=== PATIENT | female | born 1985 | race African-American/Black ===

== ENCOUNTER 2018-02-07 16:17 | Emergency (ER) | payer OTHER ==
[2018-02-07 18:03] LABS: ADD UMIC YES; UR ASCORBIC ACID NEGATIVE (NEGATIVE); UR BILIRUBIN (Dip) NEGATIVE (NEGATIVE); UR BLOOD (Dip) NEGATIVE (NEGATIVE); UR CLARITY SLIGHTLY CLOUDY (CLEAR); UR COLOR YELLOW (YELLOW); UR GLUCOSE (Dip) NEGATIVE (NEGATIVE); UR KETONES (Dip) NEGATIVE (NEGATIVE); UR LEUKOCYTE ESTERASE (Dip) TRACE Leu/ul (NEGATIVE); UR NITRITE (Dip) NEGATIVE (NEGATIVE); UR RBC 1 /HPF (0-5); UR SPECIFIC GRAVITY (Dip) 1.014 (1.003-1.030); UR SQUAMOUS EPITHELIAL CELL MODERATE /HPF (FEW); UR TOTAL PROTEIN (Dip) NEGATIVE (NEGATIVE); UR UROBILINOGEN (Dip) 2+ mg/dL (NEGATIVE); UR WBC 4 /HPF (0-5)
[2018-02-07] MEDS: DIPHENHYDRAMINE 50 MG INJ IV (18:37)
[2018-02-07] MEDS: HYDROmorphONE 0.5 MG/0.5 ML SYG IV ×2 (18:38→19:16)
[2018-02-07] MEDS: SOD CHLORIDE 0.9% 1,000 ML IV (18:39)
[2018-02-07] MEDS: ONDANSETRON 4 MG INJ IV (18:39)
[2018-02-07 18:53] LABS: ADD MAN DIFF? NO
[2018-02-07 19:01] LABS: WHITE BLOOD COUNT 10.6 10^3/ul (4.8-10.8)
[2018-02-07 19:01] LABS: ABNORMAL IP MESSAGE 1; BASOPHIL # 0.1 10^3/ul (0.0-0.1); BASOPHILS % 1.3 % (0.0-2.0); EOSINOPHILS # 0.7 10^3/ul (0.0-0.5); EOSINOPHILS % 6.7 % (0.0-7.0); HEMATOCRIT 22.7 % (37.0-47.0); HEMOGLOBIN 7.8 g/dl (12.0-16.0); LYMPHOCYTES # 3.3 10^3/ul (0.8-2.9); LYMPHOCYTES % 31.3 % (15.0-51.0); MEAN CORPUSCULAR HEMOGLOBIN 30.4 pg (29.0-33.0); MEAN CORPUSCULAR HGB CONC 34.4 g/dl (32.0-37.0); MEAN CORPUSCULAR VOLUME 88.3 fl (82.0-101.0); MEAN PLATELET VOLUME 10.5 fl (7.4-10.4); MONOCYTE # 0.9 10^3/ul (0.3-0.9); MONOCYTES % 8.7 % (0.0-11.0); NEUTROPHIL # 5.5 10^3/ul (1.6-7.5); NEUTROPHILS % 51.3 % (39.0-77.0); NUCLEATED RED BLOOD CELLS # 0.3 10^3/ul (0.0-0.0); NUCLEATED RED BLOOD CELLS% 2.7 /100WBC (0.0-0.0); PLATELET COUNT 540 10^3/UL (140-415); RED BLOOD COUNT 2.57 10^6/ul (4.20-5.40); RED CELL DISTRIBUTION WIDTH 16.6 % (11.5-14.5)
[2018-02-07 19:32] LABS: ALANINE AMINOTRANSFERASE 25 IU/L (13-69); ALBUMIN 4.3 g/dl (3.3-4.9); ALBUMIN/GLOBULIN RATIO 1.19; ALKALINE PHOSPHATASE 96 IU/L (42-121); ANION GAP 15 (8-16); ASPARTATE AMINO TRANSFERASE 41 IU/L (15-46); BILIRUBIN,INDIRECT 1.8 mg/dl (0-1.1); BILIRUBIN,TOTAL 1.8 mg/dl (0.2-1.3); BLOOD UREA NITROGEN 13 mg/dl (7-20); CALCIUM 9.1 mg/dl (8.4-10.2); CARBON DIOXIDE 25 mmol/L (21-31); CHLORIDE 111 mmol/L (97-110); CREATINE KINASE 83 IU/L (23-200); CREATININE 0.49 mg/dl (0.44-1.00); GLUCOSE 109 mg/dl (70-220); LACTATE DEHYDROGENASE 1099 IU/L (313-618); POTASSIUM 3.5 mmol/L (3.5-5.1); SODIUM 147 mmol/L (135-144); TOTAL PROTEIN 7.9 g/dl (6.1-8.1)
[2018-02-07 19:44] LABS: CK INDEX 0.7; CK-MB 0.57 ng/ml (0.0-2.4)
[2018-02-07 19:58] LABS: TROPONIN-I < 0.012 ng/ml (0.00-0.12)
[2018-02-07 20:21] LABS: POSITIVE DIFF @See below
[2018-02-07 20:39] LABS: RETICULOCYTE COUNT # 0.258 X10^6 (0.020-0.110); RETICULOCYTE COUNT % 11.1 % (0.5-1.5); RETICULOCYTE RBC 2.33
[2018-02-07] MEDS: HYDROmorphONE 1 MG/5 ML IV SYRINGE IV (20:42)
[2018-02-07] MEDS ORDERED: HEPARIN (100 UNITS/ML) 5 ML SYG IV (21:30)
[2018-02-07] MEDS: HEPARIN (100 UNITS/ML) 5 ML SYG IV (21:38)
[2018-02-09 15:23] LABS: HAPTOGLOBIN <15 mg/dL (43-212)
== END 2018-02-07 21:39 | disposition home or self-care (01) ==
LOC: FTE 16:17
DX: D57.1 Sickle-cell disease without crisis (principal); M79.605 Pain in left leg; M79.604 Pain in right leg; M54.5 Low back pain
CPT/HCPCS: 36415; 80053; 81001; 82550; 82553; 83010; 83615; 84484; 84703; 85025; 85045; 96374; 96375; 96376; 99284-25

== ENCOUNTER 2018-06-08 10:04 | Emergency (ER) | payer OTHER ==
[2018-06-08] MEDS: DIPHENHYDRAMINE 50 MG INJ IV (11:20)
[2018-06-08] MEDS: SOD CHLORIDE 0.9% 1,000 ML IV (11:20)
[2018-06-08] MEDS: HYDROmorphONE 2 MG/ML SYG IV (11:24)
[2018-06-08 11:27] LABS: ADD MAN DIFF? NO
[2018-06-08 11:39] LABS: ABNORMAL IP MESSAGE 1; BASOPHIL # 0.1 10^3/ul (0.0-0.1); BASOPHILS % 0.7 % (0.0-2.0); EOSINOPHILS % 0.4 % (0.0-7.0); HEMATOCRIT 25.7 % (37.0-47.0); LYMPHOCYTES # 1.4 10^3/ul (0.8-2.9); LYMPHOCYTES % 13.5 % (15.0-51.0); MEAN CORPUSCULAR VOLUME 88.6 fl (82.0-101.0); MEAN PLATELET VOLUME 9.5 fl (7.4-10.4); MONOCYTES % 10.1 % (0.0-11.0); NEUTROPHIL # 7.5 10^3/ul (1.6-7.5); NEUTROPHILS % 74.9 % (39.0-77.0); NUCLEATED RED BLOOD CELLS # 0.6 10^3/ul (0.0-0.0); NUCLEATED RED BLOOD CELLS% 5.9 /100WBC (0.0-0.0); PLATELET COUNT 548 10^3/UL (140-415); RED CELL DISTRIBUTION WIDTH 18.2 % (11.5-14.5); RETICULOCYTE COUNT # 0.318 X10^6 (0.020-0.110)
[2018-06-08 11:40] LABS: POSITIVE DIFF @See below
[2018-06-08 11:46] LABS: ANION GAP 21 (8-16); BLOOD UREA NITROGEN 14 mg/dl (7-20); CALCIUM 9.8 mg/dl (8.4-10.2); CARBON DIOXIDE 22 mmol/L (21-31); CHLORIDE 107 mmol/L (97-110); CREATININE 0.54 mg/dl (0.44-1.00); GLUCOSE 102 mg/dl (70-220); POTASSIUM 3.7 mmol/L (3.5-5.1); SODIUM 146 mmol/L (135-144)
[2018-06-08] MEDS: HYDROmorphONE 1 MG/ML SYG IV (12:08)
[2018-06-08] MEDS: HEPARIN (100 UNITS/ML) 5 ML SYG CATHETER (13:06)
[2018-06-08 13:26] LABS: ANISOCYTOSIS 1+ (0-0); BAND NEUTROPHILS #M 0.4 10^3/ul (0.0-0.6); BAND NEUTROPHILS % (M) 4 % (0-4); BASOPHIL #M 0.1 10^3/ul (0.0-0.0); BASOPHILS % (M) 1 % (0-2); ERYTHROBLAST% (NRBC) (M) 13 % (0-0); GIANT THROMBO% (M) 3 % (0-0); LYMPHOCYTES #M 1.3 10^3/ul (0.8-2.9); LYMPHOCYTES % (M) 13 % (15-51); MONOCYTE #M 0.9 10^3/ul (0.3-0.9); MONOCYTES % (M) 9 % (0-11); PLATELET ESTIMATE NORMAL; POIKILOCYTOSIS 1+ (0-0); POLYCHROMASIA 2+ (0-0); REACTIVE LYMPHOCYTES #M 0.1 10^3/ul (0.0-0.0); REACTIVE LYMPHOCYTES% (M) 1 % (0-0); SEG NEUT #M 7.2 10^3/ul (1.6-7.5); SEGMENTED NEUTROPHILS (M) % 72 % (39-77); SICKLE CELL 2+ (0-0); SMUDGE%M 1 % (0-0); SPHEROCYTES 2+ (0-0); TARGET CELLS 3+ (0-0)
== END 2018-06-08 13:12 | disposition home or self-care (01) ==
LOC: FTE 10:04
DX: D57.00 Hb-SS disease with crisis, unspecified (principal)
CPT/HCPCS: 71046; 80048; 85025; 85045; 93005; 96374; 96375; 96376; 99285-25

== ENCOUNTER 2018-06-11 14:19 | Emergency (ER) | payer OTHER ==
[2018-06-11] MEDS: ONDANSETRON 4 MG INJ IV (16:43)
[2018-06-11] MEDS: HYDROmorphONE 1 MG/ML SYG IV (16:44)
[2018-06-11] MEDS: DIPHENHYDRAMINE 50 MG INJ IV ×3 (16:45→19:29)
[2018-06-11] MEDS: SOD CHLORIDE 0.9% 1,000 ML IV (16:45)
[2018-06-11 16:51] LABS: ADD MAN DIFF? NO
[2018-06-11 17:00] LABS: BASOPHIL # 0.1 10^3/ul (0.0-0.1); BASOPHILS % 1.5 % (0.0-2.0); EOSINOPHILS # 0.4 10^3/ul (0.0-0.5); EOSINOPHILS % 4.2 % (0.0-7.0); HEMATOCRIT 23.8 % (37.0-47.0); HEMOGLOBIN 8.3 g/dl (12.0-16.0); LYMPHOCYTES # 2.8 10^3/ul (0.8-2.9); LYMPHOCYTES % 32.2 % (15.0-51.0); MEAN CORPUSCULAR HGB CONC 34.9 g/dl (32.0-37.0); MEAN CORPUSCULAR VOLUME 88.8 fl (82.0-101.0); MEAN PLATELET VOLUME 9.8 fl (7.4-10.4); MONOCYTE # 1.1 10^3/ul (0.3-0.9); MONOCYTES % 12.7 % (0.0-11.0); NEUTROPHIL # 4.3 10^3/ul (1.6-7.5); NEUTROPHILS % 48.3 % (39.0-77.0); NUCLEATED RED BLOOD CELLS # 0.4 10^3/ul (0.0-0.0); PLATELET COUNT 447 10^3/UL (140-415); RED BLOOD COUNT 2.68 10^6/ul (4.20-5.40); RED CELL DISTRIBUTION WIDTH 17.4 % (11.5-14.5)
[2018-06-11 17:00] LABS: WHITE BLOOD COUNT 8.8 10^3/ul (4.8-10.8)
[2018-06-11 17:19] LABS: ALANINE AMINOTRANSFERASE 23 IU/L (13-69); ALBUMIN 4.5 g/dl (3.3-4.9); ALBUMIN/GLOBULIN RATIO 1.15; ALKALINE PHOSPHATASE 79 IU/L (42-121); ANION GAP 13 (8-16); ASPARTATE AMINO TRANSFERASE 34 IU/L (15-46); BILIRUBIN,INDIRECT 2.4 mg/dl (0-1.1); BILIRUBIN,TOTAL 2.4 mg/dl (0.2-1.3); BLOOD UREA NITROGEN 8 mg/dl (7-20); CARBON DIOXIDE 24 mmol/L (21-31); CHLORIDE 107 mmol/L (97-110); CREATININE 0.42 mg/dl (0.44-1.00); GLUCOSE 79 mg/dl (70-220); POTASSIUM 3.6 mmol/L (3.5-5.1); SODIUM 140 mmol/L (135-144); TOTAL PROTEIN 8.4 g/dl (6.1-8.1)
[2018-06-11] MEDS ORDERED: HYDROmorphONE 0.5 MG/0.5 ML SYG IM (17:48)
[2018-06-11] MEDS: HYDROmorphONE 0.5 MG/0.5 ML SYG IV (18:05)
[2018-06-11 18:10] LABS: CREATINE KINASE < 20 IU/L (23-200)
[2018-06-11 18:16] LABS: CK-MB < 0.22 ng/ml (0.0-2.4); TROPONIN-I < 0.012 ng/ml (0.000-0.120)
[2018-06-11] MEDS: CEFTRIAXONE 1 GM/50 ML (PMX) 50 ML IVPB (19:07)
[2018-06-11] MEDS ORDERED: SOD CHLORIDE 0.9% 100 ML (19:18)
[2018-06-11] MEDS ORDERED: IOHEXOL 0 ML (19:18)
[2018-06-11] MEDS: LACTATED RINGER'S 1,000 ML IV (19:25)
[2018-06-11 20:13] LABS: RETICULOCYTE RBC 2.66
[2018-06-11 20:13] LABS: RETICULOCYTE COUNT # 0.272 X10^6 (0.020-0.110); RETICULOCYTE COUNT % 10.2 % (0.5-1.5)
[2018-06-11] MEDS ORDERED: KETOROLAC 15 MG INJ IV (20:23)
[2018-06-11] MEDS ORDERED: DIPHENHYDRAMINE 25 MG CAP PO (20:30)
[2018-06-11] MEDS ORDERED: AZITHROMYCIN 500MG/NS (PMX) 250 ML IVPB (20:30)
[2018-06-11] MEDS ORDERED: HYDROmorphONE 0.5 MG/0.5 ML SYG IV (20:30)
[2018-06-11 20:31] LABS: LACTATE DEHYDROGENASE 814 IU/L (313-618)
[2018-06-12] MEDS ORDERED: CEFTRIAXONE 1 GM/50 ML (PMX) 50 ML IVPB (18:00)
[2018-06-15 14:31] LABS: PROCALCITONIN <0.10 ng/mL (<0.10)
== END 2018-06-11 20:40 | disposition home or self-care (01) ==
LOC: FTE 14:19
DX: J18.1 Lobar pneumonia, unspecified organism (principal); D57.00 Hb-SS disease with crisis, unspecified
CPT/HCPCS: 36415; 71045; 80053; 82550; 82553; 83615; 84145; 84484; 85025; 85045; 93005; 96361; 96374; 96375; 96376; 99285-25

== ENCOUNTER 2018-06-17 03:30 | Inpatient (IN) | payer OTHER ==
[2018-06-17] MEDS: SOD CHLORIDE 0.9% 1,000 ML IV ×4 (03:58→18:01)
[2018-06-17] MEDS: HYDROmorphONE 0.5 MG/0.5 ML SYG IV ×4 (03:59→11:09)
[2018-06-17] MEDS: ONDANSETRON 4 MG INJ IV (03:59)
[2018-06-17] MEDS: DIPHENHYDRAMINE 50 MG INJ IV ×6 (03:59→22:58)
[2018-06-17 04:28] LABS: ADD MAN DIFF? NO
[2018-06-17 04:47] LABS: WHITE BLOOD COUNT 14.1 10^3/ul (4.8-10.8)
[2018-06-17 04:47] LABS: BASOPHIL # 0.1 10^3/ul (0.0-0.1); BASOPHILS % 0.7 % (0.0-2.0); EOSINOPHILS # 0.4 10^3/ul (0.0-0.5); EOSINOPHILS % 2.5 % (0.0-7.0); HEMATOCRIT 22.5 % (37.0-47.0); HEMOGLOBIN 7.9 g/dl (12.0-16.0); LYMPHOCYTES # 2.1 10^3/ul (0.8-2.9); LYMPHOCYTES % 14.9 % (15.0-51.0); MEAN CORPUSCULAR HEMOGLOBIN 31.1 pg (29.0-33.0); MEAN CORPUSCULAR HGB CONC 35.1 g/dl (32.0-37.0); MEAN CORPUSCULAR VOLUME 88.6 fl (82.0-101.0); MEAN PLATELET VOLUME 10.4 fl (7.4-10.4); MONOCYTE # 1.3 10^3/ul (0.3-0.9); MONOCYTES % 9.1 % (0.0-11.0); NEUTROPHIL # 10.2 10^3/ul (1.6-7.5); NEUTROPHILS % 72.2 % (39.0-77.0); NUCLEATED RED BLOOD CELLS # 0.1 10^3/ul (0.0-0.0); NUCLEATED RED BLOOD CELLS% 0.7 /100WBC (0.0-0.0); PLATELET COUNT 414 10^3/UL (140-415); RED BLOOD COUNT 2.54 10^6/ul (4.20-5.40); RED CELL DISTRIBUTION WIDTH 15.8 % (11.5-14.5); RETICULOCYTE COUNT # 0.138 X10^6 (0.020-0.110); RETICULOCYTE COUNT % 5.4 % (0.5-1.5); RETICULOCYTE RBC 2.54
[2018-06-17 04:48] LABS: ALANINE AMINOTRANSFERASE 18 IU/L (13-69); ALBUMIN 4.3 g/dl (3.3-4.9); ALBUMIN/GLOBULIN RATIO 1.13; ALKALINE PHOSPHATASE 77 IU/L (42-121); ANION GAP 16 (8-16); ASPARTATE AMINO TRANSFERASE 35 IU/L (15-46); BILIRUBIN,INDIRECT 2.1 mg/dl (0-1.1); BILIRUBIN,TOTAL 2.1 mg/dl (0.2-1.3); BLOOD UREA NITROGEN 8 mg/dl (7-20); CARBON DIOXIDE 22 mmol/L (21-31); CHLORIDE 113 mmol/L (97-110); CREATININE 0.41 mg/dl (0.44-1.00); GLUCOSE 93 mg/dl (70-220); LACTATE DEHYDROGENASE 692 IU/L (313-618); POTASSIUM 3.4 mmol/L (3.5-5.1); SODIUM 148 mmol/L (135-144); TOTAL PROTEIN 8.1 g/dl (6.1-8.1)
[2018-06-17 04:54] LABS: POSITIVE DIFF @See below
[2018-06-17] MEDS ORDERED: ONDANSETRON 4 MG INJ IV (05:00)
[2018-06-17] MEDS ORDERED: ACETAMINOPHEN 325 MG TAB PO ×2 (05:00→09:30)
[2018-06-17] MEDS ORDERED: DOCUSATE SODIUM 100 MG CAP PO (09:30)
[2018-06-17] MEDS ORDERED: BISACODYL 10 MG SUPP PR (09:30)
[2018-06-17] MEDS ORDERED: NACL 0.9% 3 ML SYG IV (09:30)
[2018-06-17] MEDS ORDERED: HYDROCODONE/APAP (5/325) TAB PO ×2 (09:30)
[2018-06-17] MEDS: ENOXAPARIN 30 MG/0.3 ML SYG SC (09:30)
[2018-06-17] MEDS ORDERED: ACETAMINOPHEN 650 MG SUPP PR (09:30)
[2018-06-17] MEDS: HYDROXYUREA 500 MG CAP PO (10:00)
[2018-06-17] MEDS: POTASSIUM CHLORIDE (SR) 20 MEQ TAB PO (10:03)
[2018-06-17] MEDS: morphine 2 MG INJ IV ×4 (12:42→22:58)
[2018-06-17] MEDS ORDERED: HYDROmorphONE 2 MG/ML SYG IV (16:00)
[2018-06-17] MEDS: LEVOFLOXACIN 500 MG TAB PO (16:57)
[2018-06-17] MEDS ORDERED: HYDROmorphONE 2 MG/ML SYG SC (17:00)
[2018-06-17] MEDS: HYDROmorphONE 2 MG TAB PO (19:17)
[2018-06-17] MEDS: LORAZEPAM 2 MG INJ IV (20:04)
[2018-06-18] MEDS: SOD CHLORIDE 0.9% 1,000 ML IV (01:53)
[2018-06-18] MEDS: morphine 2 MG INJ IV ×2 (03:18→06:17)
[2018-06-18] MEDS: LORAZEPAM 2 MG INJ IV ×5 (03:45→23:16)
[2018-06-18] MEDS: HYDROmorphONE 2 MG TAB PO (05:46)
[2018-06-18] MEDS: LEVOFLOXACIN 500 MG TAB PO (05:46)
[2018-06-18] MEDS: PANTOPRAZOLE 40 MG INJ IV (06:17)
[2018-06-18] MEDS: DIPHENHYDRAMINE 50 MG INJ IV ×5 (06:17→20:34)
[2018-06-18 06:22] LABS: ADD MAN DIFF? NO
[2018-06-18 06:29] LABS: ABNORMAL IP MESSAGE 1; BASOPHIL # 0.1 10^3/ul (0.0-0.1); BASOPHILS % 0.8 % (0.0-2.0); EOSINOPHILS # 0.4 10^3/ul (0.0-0.5); EOSINOPHILS % 2.7 % (0.0-7.0); HEMATOCRIT 20.5 % (37.0-47.0); HEMOGLOBIN 7.3 g/dl (12.0-16.0); LYMPHOCYTES # 2.7 10^3/ul (0.8-2.9); LYMPHOCYTES % 20.1 % (15.0-51.0); MEAN CORPUSCULAR HEMOGLOBIN 30.8 pg (29.0-33.0); MEAN CORPUSCULAR HGB CONC 35.6 g/dl (32.0-37.0); MEAN CORPUSCULAR VOLUME 86.5 fl (82.0-101.0); MEAN PLATELET VOLUME 10.2 fl (7.4-10.4); MONOCYTE # 1.6 10^3/ul (0.3-0.9); MONOCYTES % 11.5 % (0.0-11.0); NEUTROPHIL # 8.7 10^3/ul (1.6-7.5); NEUTROPHILS % 64.5 % (39.0-77.0); NUCLEATED RED BLOOD CELLS # 0.1 10^3/ul (0.0-0.0); NUCLEATED RED BLOOD CELLS% 0.7 /100WBC (0.0-0.0); PLATELET COUNT 474 10^3/UL (140-415); RED BLOOD COUNT 2.37 10^6/ul (4.20-5.40); RED CELL DISTRIBUTION WIDTH 16.5 % (11.5-14.5)
[2018-06-18 06:29] LABS: WHITE BLOOD COUNT 13.5 10^3/ul (4.8-10.8)
[2018-06-18 06:56] LABS: POSITIVE DIFF @See below
[2018-06-18 07:12] LABS: ALANINE AMINOTRANSFERASE 21 IU/L (13-69); ALBUMIN 3.7 g/dl (3.3-4.9); ALKALINE PHOSPHATASE 58 IU/L (42-121); ANION GAP 14 (8-16); ASPARTATE AMINO TRANSFERASE 28 IU/L (15-46); BILIRUBIN,INDIRECT 2.5 mg/dl (0-1.1); BILIRUBIN,TOTAL 2.5 mg/dl (0.2-1.3); BLOOD UREA NITROGEN 3 mg/dl (7-20); CALCIUM 8.8 mg/dl (8.4-10.2); CARBON DIOXIDE 25 mmol/L (21-31); CHLORIDE 109 mmol/L (97-110); CHOL/HDL RATIO 3.5 RATIO; CHOLESTEROL 95 mg/dl (100-200); CREATININE 0.42 mg/dl (0.44-1.00); GLUCOSE 76 mg/dl (70-220); HDL CHOLESTEROL 27 mg/dl (34-82); LDL CHOLESTEROL,CALCULATED 44 mg/dl; MAGNESIUM 1.5 mg/dl (1.7-2.5); PHOSPHORUS 2.8 mg/dl (2.5-4.9); POTASSIUM 3.2 mmol/L (3.5-5.1); SODIUM 145 mmol/L (135-144); TOTAL PROTEIN 7.4 g/dl (6.1-8.1); TRIGLYCERIDES 119 mg/dl (0-149)
[2018-06-18 07:25] LABS: FREE THYROXINE INDEX (Calc) 2.03 ug/ml (0.65-3.89); T3 UPTAKE 36.9 % (23.5-40.5); T4 (THYROXINE) 5.5 ug/dl (5.5-11.0)
[2018-06-18 07:39] LABS: THYROID STIMULATING HORMONE 0.422 MIU/L (0.465-4.680)
[2018-06-18] MEDS: ENOXAPARIN 30 MG/0.3 ML SYG SC (09:00)
[2018-06-18] MEDS: FOLIC ACID 1 MG TAB PO ×2 (09:00→09:05)
[2018-06-18] MEDS: MULTIVITAMINS THERAPEUTIC TAB PO (09:05)
[2018-06-18] MEDS: HYDROmorphONE 2 MG/ML SYG IV ×4 (09:06→20:34)
[2018-06-18] MEDS: HYDROXYUREA 500 MG CAP PO (09:10)
[2018-06-18] MEDS: DEXTROSE 5%-0.45% NACL 1,000 ML IV ×3 (09:15→20:33)
[2018-06-18] MEDS: POTASSIUM CHLORIDE (SR) 20 MEQ TAB PO (10:24)
[2018-06-18] MEDS: MAGNESIUM SULFATE 3 GM in DEXTROSE 5% 100 ML IVPB (11:33)
[2018-06-18] MEDS ORDERED: HYDROmorphONE 2 MG/ML SYG IV (19:00)
[2018-06-19] MEDS: HYDROmorphONE 2 MG/ML SYG IV ×6 (01:51→22:00)
[2018-06-19] MEDS: DIPHENHYDRAMINE 50 MG INJ IV ×6 (01:51→22:03)
[2018-06-19] MEDS: DEXTROSE 5%-0.45% NACL 1,000 ML IV ×3 (04:59→21:10)
[2018-06-19] MEDS: LORAZEPAM 2 MG INJ IV ×5 (04:59→21:04)
[2018-06-19] MEDS: PANTOPRAZOLE 40 MG INJ IV (06:00)
[2018-06-19] MEDS: LEVOFLOXACIN 500 MG TAB PO (06:02)
[2018-06-19 06:34] LABS: ADD MAN DIFF? NO
[2018-06-19 06:35] LABS: BASOPHIL # 0.1 10^3/ul (0.0-0.1); EOSINOPHILS # 0.5 10^3/ul (0.0-0.5); EOSINOPHILS % 4.6 % (0.0-7.0); HEMATOCRIT 20.1 % (37.0-47.0); LYMPHOCYTES # 3.2 10^3/ul (0.8-2.9); LYMPHOCYTES % 27.4 % (15.0-51.0); MEAN CORPUSCULAR HEMOGLOBIN 30.3 pg (29.0-33.0); MEAN CORPUSCULAR HGB CONC 34.8 g/dl (32.0-37.0); MEAN PLATELET VOLUME 10.5 fl (7.4-10.4); MONOCYTE # 1.3 10^3/ul (0.3-0.9); MONOCYTES % 11.2 % (0.0-11.0); NEUTROPHIL # 6.5 10^3/ul (1.6-7.5); NEUTROPHILS % 55.2 % (39.0-77.0); NUCLEATED RED BLOOD CELLS # 0.1 10^3/ul (0.0-0.0); NUCLEATED RED BLOOD CELLS% 1.1 /100WBC (0.0-0.0); PLATELET COUNT 383 10^3/UL (140-415); RED BLOOD COUNT 2.31 10^6/ul (4.20-5.40); RED CELL DISTRIBUTION WIDTH 17.4 % (11.5-14.5)
[2018-06-19 06:35] LABS: WHITE BLOOD COUNT 11.7 10^3/ul (4.8-10.8)
[2018-06-19 06:57] LABS: ANION GAP 13 (8-16); BLOOD UREA NITROGEN 4 mg/dl (7-20); CALCIUM 8.7 mg/dl (8.4-10.2); CARBON DIOXIDE 23 mmol/L (21-31); CHLORIDE 107 mmol/L (97-110); CREATININE 0.41 mg/dl (0.44-1.00); GLUCOSE 107 mg/dl (70-220); POTASSIUM 4.1 mmol/L (3.5-5.1); SODIUM 139 mmol/L (135-144)
[2018-06-19 06:59] LABS: MAGNESIUM 1.7 mg/dl (1.7-2.5)
[2018-06-19] MEDS: ONDANSETRON 4 MG INJ IV (09:05)
[2018-06-19] MEDS: MULTIVITAMINS THERAPEUTIC TAB PO (09:05)
[2018-06-19] MEDS: FOLIC ACID 1 MG TAB PO (09:05)
[2018-06-19] MEDS: ENOXAPARIN 30 MG/0.3 ML SYG SC (09:06)
[2018-06-19] MEDS: HYDROXYUREA 500 MG CAP PO (09:17)
[2018-06-19] MEDS: ACETAMINOPHEN 1000MG/100ML IV 100 ML IVPB (10:07)
[2018-06-19] MEDS ORDERED: oxyCODONE 5 MG TAB PO (20:00)
[2018-06-20] MEDS: oxyCODONE 5 MG TAB PO ×5 (00:11→21:10)
[2018-06-20] MEDS: ONDANSETRON 4 MG INJ IV (00:27)
[2018-06-20] MEDS: ACETAMINOPHEN 325 MG TAB PO (00:37)
[2018-06-20] MEDS: LORAZEPAM 2 MG INJ IV ×6 (00:58→21:10)
[2018-06-20] MEDS: DIPHENHYDRAMINE 50 MG INJ IV ×6 (02:01→22:02)
[2018-06-20] MEDS: HYDROmorphONE 2 MG/ML SYG IV ×6 (02:01→22:01)
[2018-06-20] MEDS: DEXTROSE 5%-0.45% NACL 1,000 ML IV ×2 (05:02→13:28)
[2018-06-20] MEDS: PANTOPRAZOLE 40 MG INJ IV (06:15)
[2018-06-20] MEDS: LEVOFLOXACIN 500 MG TAB PO (06:15)
[2018-06-20] MEDS: MULTIVITAMINS THERAPEUTIC TAB PO (09:10)
[2018-06-20] MEDS: FOLIC ACID 1 MG TAB PO (09:10)
[2018-06-20] MEDS: HYDROXYUREA 500 MG CAP PO (09:14)
[2018-06-20] MEDS: ENOXAPARIN 30 MG/0.3 ML SYG SC (09:15)
[2018-06-20 12:14] LABS: ADD MAN DIFF? NO
[2018-06-20 12:18] LABS: WHITE BLOOD COUNT 15.8 10^3/ul (4.8-10.8)
[2018-06-20 12:18] LABS: ABNORMAL IP MESSAGE 1; BASOPHIL # 0.1 10^3/ul (0.0-0.1); BASOPHILS % 0.5 % (0.0-2.0); EOSINOPHILS # 0.4 10^3/ul (0.0-0.5); EOSINOPHILS % 2.7 % (0.0-7.0); HEMATOCRIT 17.8 % (37.0-47.0); LYMPHOCYTES # 3.4 10^3/ul (0.8-2.9); LYMPHOCYTES % 21.8 % (15.0-51.0); MEAN CORPUSCULAR HEMOGLOBIN 30.7 pg (29.0-33.0); MEAN CORPUSCULAR HGB CONC 35.4 g/dl (32.0-37.0); MEAN CORPUSCULAR VOLUME 86.8 fl (82.0-101.0); MEAN PLATELET VOLUME 11.5 fl (7.4-10.4); MONOCYTE # 1.4 10^3/ul (0.3-0.9); MONOCYTES % 8.9 % (0.0-11.0); NEUTROPHIL # 10.3 10^3/ul (1.6-7.5); NEUTROPHILS % 65.2 % (39.0-77.0); NUCLEATED RED BLOOD CELLS # 0.2 10^3/ul (0.0-0.0); NUCLEATED RED BLOOD CELLS% 1.1 /100WBC (0.0-0.0); PLATELET COUNT 297 10^3/UL (140-415); RED BLOOD COUNT 2.05 10^6/ul (4.20-5.40); RED CELL DISTRIBUTION WIDTH 19.5 % (11.5-14.5)
[2018-06-20 12:23] LABS: POSITIVE DIFF @See below
[2018-06-20 12:26] LABS: HEMOGLOBIN 6.3 g/dl (12.0-16.0); PATH REVIEW? YES
[2018-06-20 12:39] LABS: MAGNESIUM 1.5 mg/dl (1.7-2.5)
[2018-06-20 12:39] LABS: PHOSPHORUS 3.7 mg/dl (2.5-4.9)
[2018-06-20 13:56] LABS: ANION GAP 14 (8-16); BLOOD UREA NITROGEN 7 mg/dl (7-20); CALCIUM 8.5 mg/dl (8.4-10.2); CARBON DIOXIDE 23 mmol/L (21-31); CHLORIDE 106 mmol/L (97-110); CREATININE 0.42 mg/dl (0.44-1.00); GLUCOSE 149 mg/dl (70-220); POTASSIUM 4.5 mmol/L (3.5-5.1); SODIUM 138 mmol/L (135-144)
[2018-06-20 14:03] LABS: HEMATOCRIT 17.2 % (37.0-47.0)
[2018-06-20 14:08] LABS: HEMOGLOBIN 6.2 g/dl (12.0-16.0)
[2018-06-20 17:05] LABS: IMMEDIATE SPIN CROSSMATCH 1 1
[2018-06-21] MEDS: LORAZEPAM 2 MG INJ IV ×5 (00:58→17:07)
[2018-06-21] MEDS: DEXTROSE 5%-0.45% NACL 1,000 ML IV ×3 (00:59→15:00)
[2018-06-21] MEDS: oxyCODONE 5 MG TAB PO ×5 (01:05→17:06)
[2018-06-21] MEDS: DIPHENHYDRAMINE 50 MG INJ IV ×5 (02:06→18:40)
[2018-06-21] MEDS: HYDROmorphONE 2 MG/ML SYG IV ×5 (02:07→18:39)
[2018-06-21] MEDS: LEVOFLOXACIN 500 MG TAB PO (05:08)
[2018-06-21] MEDS: PANTOPRAZOLE 40 MG INJ IV (05:09)
[2018-06-21 06:01] LABS: ADD MAN DIFF? NO
[2018-06-21 06:16] LABS: RETICULOCYTE RBC 2.38
[2018-06-21 06:16] LABS: RETICULOCYTE COUNT # 0.393 X10^6 (0.020-0.110); RETICULOCYTE COUNT % 16.5 % (0.5-1.5)
[2018-06-21 06:23] LABS: BASOPHIL # 0.1 10^3/ul (0.0-0.1); BASOPHILS % 1.1 % (0.0-2.0); EOSINOPHILS # 0.5 10^3/ul (0.0-0.5); EOSINOPHILS % 5.3 % (0.0-7.0); HEMATOCRIT 20.8 % (37.0-47.0); HEMOGLOBIN 7.3 g/dl (12.0-16.0); LYMPHOCYTES # 2.9 10^3/ul (0.8-2.9); LYMPHOCYTES % 29.5 % (15.0-51.0); MEAN CORPUSCULAR HEMOGLOBIN 30.7 pg (29.0-33.0); MEAN CORPUSCULAR HGB CONC 35.1 g/dl (32.0-37.0); MEAN CORPUSCULAR VOLUME 87.4 fl (82.0-101.0); MEAN PLATELET VOLUME 10.8 fl (7.4-10.4); MONOCYTE # 1.2 10^3/ul (0.3-0.9); MONOCYTES % 11.6 % (0.0-11.0); NEUTROPHIL # 5.1 10^3/ul (1.6-7.5); NEUTROPHILS % 51.4 % (39.0-77.0); NUCLEATED RED BLOOD CELLS # 0.3 10^3/ul (0.0-0.0); NUCLEATED RED BLOOD CELLS% 2.7 /100WBC (0.0-0.0); RED BLOOD COUNT 2.38 10^6/ul (4.20-5.40); RED CELL DISTRIBUTION WIDTH 18.8 % (11.5-14.5)
[2018-06-21 06:35] LABS: PLATELET COUNT 389 10^3/UL (140-415); POSITIVE DIFF @See below
[2018-06-21 06:40] LABS: MAGNESIUM 1.6 mg/dl (1.7-2.5)
[2018-06-21 06:40] LABS: PHOSPHORUS 4.2 mg/dl (2.5-4.9)
[2018-06-21 06:49] LABS: ANION GAP 13 (8-16); BLOOD UREA NITROGEN 6 mg/dl (7-20); CALCIUM 8.4 mg/dl (8.4-10.2); CARBON DIOXIDE 23 mmol/L (21-31); CHLORIDE 107 mmol/L (97-110); CREATININE 0.39 mg/dl (0.44-1.00); GLUCOSE 130 mg/dl (70-220); POTASSIUM 3.9 mmol/L (3.5-5.1); SODIUM 139 mmol/L (135-144)
[2018-06-21] MEDS: MULTIVITAMINS THERAPEUTIC TAB PO (08:23)
[2018-06-21] MEDS: FOLIC ACID 1 MG TAB PO (08:23)
[2018-06-21] MEDS: HYDROXYUREA 500 MG CAP PO (08:31)
[2018-06-21] MEDS: MAGNESIUM HYDROXIDE 30ML CUP PO (12:48)
[2018-06-21] MEDS: HEPARIN (100 UNITS/ML) 5 ML SYG CATHETER (18:45)
[2018-06-22 12:42] LABS: ANISOCYTOSIS 2+ (0-0); BAND NEUTROPHILS #M 4.8 10^3/ul (0.0-0.6); BAND NEUTROPHILS % (M) 31 % (0-4); BASOPHIL #M 0.1 10^3/ul (0.0-0.0); BASOPHILS % (M) 1 % (0-2); EOSINOPHILS % (M) 4 % (0-7); ERYTHROBLAST% (NRBC) (M) 10 % (0-0); GIANT THROMBO% (M) 2 % (0-0); LYMPHOCYTES #M 3.7 10^3/ul (0.8-2.9); LYMPHOCYTES % (M) 24 % (15-51); MONOCYTE #M 1.4 10^3/ul (0.3-0.9); MONOCYTES % (M) 9 % (0-11); PLATELET ESTIMATE NORMAL; POIKILOCYTOSIS 3+ (0-0); POLYCHROMASIA 3+ (0-0); SEG NEUT #M 5.7 10^3/ul (1.6-7.5); SEGMENTED NEUTROPHILS (M) % 31 % (39-77); SICKLE CELL 3+ (0-0); SMUDGE%M 3 % (0-0); TARGET CELLS 2+ (0-0)
== END 2018-06-21 19:35 | disposition home or self-care (01) | DRG 811 ==
LOC: 2NE 06-19 09:55 → E/R 03:30 → 2NE 05:00
PROC: 30233N1 Transfusion of Nonautologous Red Blood Cells into Peripheral Vein, Percutaneous Approach (ICD-10-PCS; principal; 2018-06-20)
DX: D57.00 Hb-SS disease with crisis, unspecified (principal); J18.9 Pneumonia, unspecified organism; D63.8 Anemia in other chronic diseases classified elsewhere; Z86.718 Personal history of other venous thrombosis and embolism; F17.210 Nicotine dependence, cigarettes, uncomplicated; Z90.49 Acquired absence of other specified parts of digestive tract; F41.9 Anxiety disorder, unspecified
CPT/HCPCS: 36415; 36430; 71045; 73000; 76536; 80048; 80053; 80061; 83036; 83615; 83735; 84100; 84436; 84443; 84479; 85014; 85018; 85025; 85045; 86850; 86900; 86901; 86920; 96374; 96375; 96376; 99285-25

== ENCOUNTER 2018-06-25 06:36 | Emergency (ER) | payer OTHER ==
[2018-06-25] MEDS ORDERED: morphine 4 MG/ML VIAL IV (06:42)
[2018-06-25 07:16] LABS: ADD MAN DIFF? NO
[2018-06-25] MEDS: HYDROmorphONE 0.5 MG/0.5 ML SYG IV ×3 (07:20→09:53)
[2018-06-25] MEDS: SOD CHLORIDE 0.9% 1,000 ML IV (07:20)
[2018-06-25] MEDS: DIPHENHYDRAMINE 50 MG INJ IV (07:20)
[2018-06-25] MEDS: KETOROLAC 15 MG INJ IV (07:20)
[2018-06-25 07:27] LABS: BASOPHIL # 0.1 10^3/ul (0.0-0.1); BASOPHILS % 1.9 % (0.0-2.0); EOSINOPHILS # 0.3 10^3/ul (0.0-0.5); EOSINOPHILS % 3.4 % (0.0-7.0); HEMATOCRIT 23.9 % (37.0-47.0); HEMOGLOBIN 8.2 g/dl (12.0-16.0); LYMPHOCYTES # 1.5 10^3/ul (0.8-2.9); LYMPHOCYTES % 20.2 % (15.0-51.0); MEAN CORPUSCULAR HEMOGLOBIN 30.7 pg (29.0-33.0); MEAN CORPUSCULAR HGB CONC 34.3 g/dl (32.0-37.0); MEAN CORPUSCULAR VOLUME 89.5 fl (82.0-101.0); MEAN PLATELET VOLUME 9.9 fl (7.4-10.4); NEUTROPHIL # 4.4 10^3/ul (1.6-7.5); NEUTROPHILS % 59.5 % (39.0-77.0); NUCLEATED RED BLOOD CELLS # 0.2 10^3/ul (0.0-0.0); NUCLEATED RED BLOOD CELLS% 2.5 /100WBC (0.0-0.0); PLATELET COUNT 650 10^3/UL (140-415); RED BLOOD COUNT 2.67 10^6/ul (4.20-5.40); RED CELL DISTRIBUTION WIDTH 17.9 % (11.5-14.5); RETICULOCYTE RBC 2.67
[2018-06-25 07:27] LABS: WHITE BLOOD COUNT 7.3 10^3/ul (4.8-10.8)
[2018-06-25 07:35] LABS: ANION GAP 14 (8-16); BLOOD UREA NITROGEN 9 mg/dl (7-20); CALCIUM 9.3 mg/dl (8.4-10.2); CARBON DIOXIDE 24 mmol/L (21-31); CHLORIDE 111 mmol/L (97-110); CREATININE 0.41 mg/dl (0.44-1.00); GLUCOSE 89 mg/dl (70-220); POTASSIUM 3.6 mmol/L (3.5-5.1); SODIUM 145 mmol/L (135-144)
[2018-06-25 07:42] LABS: RETICULOCYTE COUNT # 0.318 X10^6 (0.020-0.110); RETICULOCYTE COUNT % 11.9 % (0.5-1.5)
[2018-06-25 07:46] LABS: TROPONIN-I < 0.012 ng/ml (0.000-0.120)
[2018-06-25 07:52] LABS: INR 0.95; PROTIME 12.8 Sec (11.9-14.9)
== END 2018-06-25 11:04 | disposition home or self-care (01) ==
LOC: E/R 06:36
DX: D57.1 Sickle-cell disease without crisis (principal); D64.9 Anemia, unspecified; D47.3 Essential (hemorrhagic) thrombocythemia; R07.81 Pleurodynia; J18.1 Lobar pneumonia, unspecified organism; Z87.891 Personal history of nicotine dependence
CPT/HCPCS: 36415; 71045; 80048; 84484; 85025; 85045; 85610; 93005; 96374; 96375; 96376; 99285-25

== ENCOUNTER 2018-07-02 17:45 | Inpatient (IN) | payer OTHER ==
[2018-07-02 20:02] LABS: ADD MAN DIFF? NO
[2018-07-02 20:03] LABS: WHITE BLOOD COUNT 15.2 10^3/ul (4.8-10.8)
[2018-07-02 20:03] LABS: BASOPHIL # 0.2 10^3/ul (0.0-0.1); BASOPHILS % 1.3 % (0.0-2.0); EOSINOPHILS # 0.6 10^3/ul (0.0-0.5); EOSINOPHILS % 3.8 % (0.0-7.0); HEMATOCRIT 24.3 % (37.0-47.0); HEMOGLOBIN 8.4 g/dl (12.0-16.0); LYMPHOCYTES # 2.3 10^3/ul (0.8-2.9); LYMPHOCYTES % 15.2 % (15.0-51.0); MEAN CORPUSCULAR HEMOGLOBIN 30.5 pg (29.0-33.0); MEAN CORPUSCULAR HGB CONC 34.6 g/dl (32.0-37.0); MEAN CORPUSCULAR VOLUME 88.4 fl (82.0-101.0); MEAN PLATELET VOLUME 9.3 fl (7.4-10.4); MONOCYTE # 1.3 10^3/ul (0.3-0.9); MONOCYTES % 8.5 % (0.0-11.0); NEUTROPHIL # 10.6 10^3/ul (1.6-7.5); NEUTROPHILS % 69.8 % (39.0-77.0); NUCLEATED RED BLOOD CELLS # 0.2 10^3/ul (0.0-0.0); NUCLEATED RED BLOOD CELLS% 1.3 /100WBC (0.0-0.0); PLATELET COUNT 505 10^3/UL (140-415); RED BLOOD COUNT 2.75 10^6/ul (4.20-5.40); RED CELL DISTRIBUTION WIDTH 17.1 % (11.5-14.5); RETICULOCYTE COUNT # 0.168 X10^6 (0.020-0.110); RETICULOCYTE COUNT % 6.1 % (0.5-1.5); RETICULOCYTE RBC 2.75
[2018-07-02] MEDS: SOD CHLORIDE 0.9% 1,000 ML IV ×2 (20:15→20:28)
[2018-07-02] MEDS ORDERED: morphine 4 MG/ML VIAL IV (20:18)
[2018-07-02] MEDS: ONDANSETRON 4 MG INJ IV (20:20)
[2018-07-02] MEDS: KETOROLAC 30 MG INJ IV (20:28)
[2018-07-02 21:09] LABS: ANION GAP 12 (8-16); BLOOD UREA NITROGEN 14 mg/dl (7-20); CALCIUM 9.1 mg/dl (8.4-10.2); CARBON DIOXIDE 28 mmol/L (21-31); CHLORIDE 105 mmol/L (97-110); GLUCOSE 87 mg/dl (70-220); POTASSIUM 3.9 mmol/L (3.5-5.1); SODIUM 141 mmol/L (135-144)
[2018-07-02] MEDS: DIPHENHYDRAMINE 50 MG CAP PO (22:27)
[2018-07-02] MEDS: HYDROmorphONE 0.5 MG/0.5 ML SYG IV (23:00)
[2018-07-02] MEDS ORDERED: HYDROmorphONE 1 MG/ML SYG (23:09)
[2018-07-03] MEDS ORDERED: HYDROmorphONE 1 MG/ML SYG IV (01:30)
[2018-07-03] MEDS: SOD CHLORIDE 0.9% 1,000 ML IV ×3 (02:00→17:13)
[2018-07-03] MEDS: DIPHENHYDRAMINE 50 MG INJ IV ×5 (02:00→22:08)
[2018-07-03] MEDS: HYDROmorphONE 1 MG/ML SYG IV ×6 (02:02→22:09)
[2018-07-03] MEDS ORDERED: LORAZEPAM 2 MG INJ IV (02:30)
[2018-07-03] MEDS: KETOROLAC 15 MG INJ IV (04:45)
[2018-07-04] MEDS: SOD CHLORIDE 0.9% 1,000 ML IV ×3 (02:01→06:52)
[2018-07-04] MEDS: DIPHENHYDRAMINE 50 MG INJ IV ×5 (04:16→20:22)
[2018-07-04] MEDS: HYDROmorphONE 1 MG/ML SYG IV ×5 (04:17→20:22)
[2018-07-04 06:53] LABS: ADD MAN DIFF? NO
[2018-07-04 07:02] LABS: WHITE BLOOD COUNT 10.4 10^3/ul (4.8-10.8)
[2018-07-04 07:02] LABS: BASOPHIL # 0.1 10^3/ul (0.0-0.1); BASOPHILS % 1.1 % (0.0-2.0); EOSINOPHILS # 0.8 10^3/ul (0.0-0.5); EOSINOPHILS % 7.2 % (0.0-7.0); HEMATOCRIT 22.4 % (37.0-47.0); HEMOGLOBIN 7.6 g/dl (12.0-16.0); LYMPHOCYTES # 2.3 10^3/ul (0.8-2.9); LYMPHOCYTES % 22.4 % (15.0-51.0); MEAN CORPUSCULAR HEMOGLOBIN 30.6 pg (29.0-33.0); MEAN CORPUSCULAR HGB CONC 33.9 g/dl (32.0-37.0); MEAN CORPUSCULAR VOLUME 90.3 fl (82.0-101.0); MEAN PLATELET VOLUME 9.6 fl (7.4-10.4); MONOCYTE # 1.1 10^3/ul (0.3-0.9); MONOCYTES % 10.9 % (0.0-11.0); NEUTROPHILS % 57.4 % (39.0-77.0); NUCLEATED RED BLOOD CELLS # 0.3 10^3/ul (0.0-0.0); PLATELET COUNT 590 10^3/UL (140-415); RED BLOOD COUNT 2.48 10^6/ul (4.20-5.40); RED CELL DISTRIBUTION WIDTH 17.5 % (11.5-14.5)
[2018-07-04 07:18] LABS: ANION GAP 13 (8-16); BLOOD UREA NITROGEN 8 mg/dl (7-20); CALCIUM 8.7 mg/dl (8.4-10.2); CARBON DIOXIDE 27 mmol/L (21-31); CHLORIDE 106 mmol/L (97-110); CREATININE 0.39 mg/dl (0.44-1.00); GLUCOSE 96 mg/dl (70-220); POTASSIUM 3.6 mmol/L (3.5-5.1); SODIUM 142 mmol/L (135-144)
[2018-07-04] MEDS: HYDROXYUREA 500 MG CAP PO (11:03)
[2018-07-04] MEDS: FOLIC ACID 1 MG TAB PO (11:03)
[2018-07-04] MEDS: POTASSIUM CHLORIDE 10 MEQ in SOD CHLORIDE 0.45% 1,000 ML IV ×2 (11:05→21:40)
[2018-07-04 17:24] LABS: AMPHETAMINE/METHAMPHETAMINE NEGATIVE (NEGATIVE); BARBITURATES NEGATIVE (NEGATIVE); BENZODIAZEPINES NEGATIVE (NEGATIVE); CANNABINOIDS NEGATIVE (NEGATIVE); COCAINE NEGATIVE (NEGATIVE); OPIATES POSITIVE (NEGATIVE)
[2018-07-04] MEDS: HYDROmorphONE 0.5 MG/0.5 ML SYG IV (22:34)
[2018-07-04] MEDS: SOD CHLORIDE 0.9% 100 ML (23:17)
[2018-07-04] MEDS: IOHEXOL 100 ML (23:18)
[2018-07-04] MEDS: LORAZEPAM 0.5 MG TAB PO (23:25)
[2018-07-05] MEDS: HYDROmorphONE 1 MG/ML SYG IV ×5 (00:13→23:45)
[2018-07-05] MEDS: DIPHENHYDRAMINE 50 MG INJ IV ×7 (00:13→23:45)
[2018-07-05] MEDS: KETOROLAC 15 MG INJ IV ×3 (02:40→20:51)
[2018-07-05] MEDS: POTASSIUM CHLORIDE 10 MEQ in SOD CHLORIDE 0.45% 1,000 ML IV ×3 (06:00→20:51)
[2018-07-05] MEDS: FOLIC ACID 1 MG TAB PO (07:55)
[2018-07-05] MEDS: HYDROXYUREA 500 MG CAP PO (07:58)
[2018-07-05] MEDS: ENOXAPARIN 40 MG/0.4 ML SYG SC (08:01)
[2018-07-05] MEDS: LORAZEPAM 0.5 MG TAB PO ×3 (09:04→22:20)
[2018-07-05] MEDS ORDERED: HYDROmorphONE 2 MG/ML SYG IV (13:30)
[2018-07-05] MEDS: HYDROmorphONE 2 MG/ML SYG IV ×4 (13:38→19:28)
[2018-07-06] MEDS: HYDROmorphONE 1 MG/ML SYG IV ×12 (01:26→22:05)
[2018-07-06] MEDS: DIPHENHYDRAMINE 50 MG INJ IV ×6 (03:25→21:28)
[2018-07-06] MEDS: HYDROmorphONE 2 MG TAB PO ×4 (04:11→18:50)
[2018-07-06] MEDS: LORAZEPAM 0.5 MG TAB PO ×3 (04:11→18:50)
[2018-07-06] MEDS: POTASSIUM CHLORIDE 10 MEQ in SOD CHLORIDE 0.45% 1,000 ML IV ×3 (07:24→23:00)
[2018-07-06] MEDS: HYDROXYUREA 500 MG CAP PO (09:00)
[2018-07-06] MEDS: FOLIC ACID 1 MG TAB PO (09:00)
[2018-07-06] MEDS: ENOXAPARIN 40 MG/0.4 ML SYG SC (09:00)
[2018-07-06] MEDS: HYDROmorphONE 2 MG/ML SYG IV (11:46)
[2018-07-06 16:19] LABS: LACTIC ACID < 0.5 mmol/L (0.5-2.0)
[2018-07-07] MEDS: HYDROmorphONE 1 MG/ML SYG IV ×11 (00:07→21:49)
[2018-07-07 00:20] LABS: IMMEDIATE SPIN CROSSMATCH 1 1
[2018-07-07] MEDS: SOD CHLORIDE 0.9% 250 ML IV* (00:32)
[2018-07-07] MEDS: DIPHENHYDRAMINE 50 MG INJ IV ×7 (02:31→19:48)
[2018-07-07] MEDS: LORAZEPAM 0.5 MG TAB PO ×2 (03:43→20:20)
[2018-07-07] MEDS: HYDROmorphONE 2 MG TAB PO ×4 (03:44→16:18)
[2018-07-07 07:57] LABS: WHITE BLOOD COUNT 11.1 10^3/ul (4.8-10.8)
[2018-07-07 07:57] LABS: ABNORMAL IP MESSAGE 1; HEMATOCRIT 26.9 % (37.0-47.0); HEMOGLOBIN 9.3 g/dl (12.0-16.0); MEAN CORPUSCULAR HEMOGLOBIN 29.7 pg (29.0-33.0); MEAN CORPUSCULAR HGB CONC 34.6 g/dl (32.0-37.0); MEAN CORPUSCULAR VOLUME 85.9 fl (82.0-101.0); MEAN PLATELET VOLUME 9.6 fl (7.4-10.4); NUCLEATED RED BLOOD CELLS% 3.3 /100WBC (0.0-0.0); PLATELET COUNT 536 10^3/UL (140-415); RED BLOOD COUNT 3.13 10^6/ul (4.20-5.40); RED CELL DISTRIBUTION WIDTH 16.1 % (11.5-14.5)
[2018-07-07 07:59] LABS: ADD MAN DIFF? YES; POSITIVE DIFF @See below
[2018-07-07 08:19] LABS: ADD UMIC YES; UR ASCORBIC ACID NEGATIVE (NEGATIVE); UR BILIRUBIN (Dip) NEGATIVE (NEGATIVE); UR BLOOD (Dip) NEGATIVE (NEGATIVE); UR CLARITY CLEAR (CLEAR); UR COLOR YELLOW (YELLOW); UR GLUCOSE (Dip) NEGATIVE (NEGATIVE); UR KETONES (Dip) NEGATIVE (NEGATIVE); UR LEUKOCYTE ESTERASE (Dip) NEGATIVE Leu/ul (NEGATIVE); UR NITRITE (Dip) NEGATIVE (NEGATIVE); UR RBC 0 /HPF (0-5); UR SPECIFIC GRAVITY (Dip) 1.017 (1.003-1.030); UR TOTAL PROTEIN (Dip) 1+ mg/dl (NEGATIVE); UR UROBILINOGEN (Dip) 2+ mg/dL (NEGATIVE); UR WBC 0 /HPF (0-5)
[2018-07-07 08:21] LABS: ANION GAP 16 (8-16); BLOOD UREA NITROGEN 8 mg/dl (7-20); CALCIUM 9.3 mg/dl (8.4-10.2); CARBON DIOXIDE 24 mmol/L (21-31); CHLORIDE 103 mmol/L (97-110); CREATININE 0.37 mg/dl (0.44-1.00); GLUCOSE 91 mg/dl (70-220); POTASSIUM 3.8 mmol/L (3.5-5.1); SODIUM 139 mmol/L (135-144)
[2018-07-07 08:25] LABS: ANISOCYTOSIS 1+ (0-0); EOSINOPHILS % (M) 1 % (0-7); ERYTHROBLAST% (NRBC) (M) 3 % (0-0); GIANT THROMBO% (M) 5 % (0-0); LYMPHOCYTES #M 2.3 10^3/ul (0.8-2.9); LYMPHOCYTES % (M) 21 % (15-51); MONOCYTE #M 0.8 10^3/ul (0.3-0.9); MONOCYTES % (M) 8 % (0-11); MYELOCYTES #M 0.2 10^3/ul (0.0-0.0); MYELOCYTES % (M) 2 % (0-0); PLATELET ESTIMATE INCREASED; POLYCHROMASIA 2+ (0-0); REACTIVE LYMPHOCYTES #M 0.2 10^3/ul (0.0-0.0); REACTIVE LYMPHOCYTES% (M) 2 % (0-0); SEGMENTED NEUTROPHILS (M) % 66 % (39-77); SICKLE CELL 1+ (0-0); SMUDGE%M 5 % (0-0); TARGET CELLS 2+ (0-0)
[2018-07-07] MEDS: FOLIC ACID 1 MG TAB PO (09:09)
[2018-07-07] MEDS: HYDROXYUREA 500 MG CAP PO (09:12)
[2018-07-07] MEDS: ENOXAPARIN 40 MG/0.4 ML SYG SC (09:13)
[2018-07-07] MEDS: POTASSIUM CHLORIDE 10 MEQ in SOD CHLORIDE 0.45% 1,000 ML IV (11:17)
[2018-07-07] MEDS: SENNA TAB PO (21:45)
[2018-07-07] MEDS: BISACODYL (EC) 5 MG TAB PO (21:45)
[2018-07-07] MEDS: ACETAMINOPHEN 325 MG TAB PO (21:45)
[2018-07-07] MEDS: MULTIVITAMINS IV (21:46)
[2018-07-07] MEDS: 1/2 NS + KCL 20 MEQ 1,000 ML IV (21:46)
[2018-07-07] MEDS: POTASSIUM CHLORIDE IV (21:46)
[2018-07-07] MEDS: SOD CHLORIDE IV (21:46)
[2018-07-08] MEDS: HYDROmorphONE 1 MG/ML SYG IV ×12 (00:06→22:01)
[2018-07-08] MEDS: DIPHENHYDRAMINE 50 MG INJ IV ×6 (00:06→19:59)
[2018-07-08] MEDS: SENNA TAB PO ×2 (09:21→20:05)
[2018-07-08] MEDS: FOLIC ACID 1 MG TAB PO (09:21)
[2018-07-08] MEDS: HYDROXYUREA 500 MG CAP PO (09:22)
[2018-07-08] MEDS: ENOXAPARIN 40 MG/0.4 ML SYG SC (09:22)
[2018-07-08] MEDS: HYDROmorphONE 2 MG TAB PO ×2 (09:23→15:07)
[2018-07-08] MEDS: 1/2 NS + KCL 20 MEQ 1,000 ML IV ×2 (13:55→20:41)
[2018-07-08] MEDS: LORAZEPAM 0.5 MG TAB PO ×2 (14:24→20:37)
[2018-07-08] MEDS: ACETAMINOPHEN 325 MG TAB PO (19:59)
[2018-07-08] MEDS: SOD CHLORIDE IV (20:04)
[2018-07-08] MEDS: POTASSIUM CHLORIDE IV (20:04)
[2018-07-08] MEDS: MULTIVITAMINS IV (20:04)
[2018-07-09] MEDS: DIPHENHYDRAMINE 50 MG INJ IV ×6 (00:06→20:20)
[2018-07-09] MEDS: HYDROmorphONE 1 MG/ML SYG IV ×12 (00:06→22:11)
[2018-07-09] MEDS: HYDROmorphONE 2 MG TAB PO ×3 (03:04→21:26)
[2018-07-09] MEDS: FOLIC ACID 1 MG TAB PO (08:46)
[2018-07-09] MEDS: HYDROXYUREA 500 MG CAP PO (08:48)
[2018-07-09] MEDS: ENOXAPARIN 40 MG/0.4 ML SYG SC (08:48)
[2018-07-09] MEDS: SENNA TAB PO ×2 (09:00→20:19)
[2018-07-09] MEDS: 1/2 NS + KCL 20 MEQ 1,000 ML IV (10:04)
[2018-07-09] MEDS: LORAZEPAM 0.5 MG TAB PO ×2 (10:47→18:21)
[2018-07-09] MEDS: MULTIVITAMINS IV (20:19)
[2018-07-09] MEDS: SOD CHLORIDE IV (20:19)
[2018-07-09] MEDS: POTASSIUM CHLORIDE IV (20:19)
[2018-07-09] MEDS: ACETAMINOPHEN 325 MG TAB PO (20:20)
[2018-07-10] MEDS: HYDROmorphONE 1 MG/ML SYG IV ×12 (00:01→22:55)
[2018-07-10] MEDS: 1/2 NS + KCL 20 MEQ 1,000 ML IV ×2 (00:20→13:00)
[2018-07-10] MEDS: DIPHENHYDRAMINE 50 MG INJ IV ×6 (04:31→21:00)
[2018-07-10] MEDS: FOLIC ACID 1 MG TAB PO (09:06)
[2018-07-10] MEDS: SENNA TAB PO ×2 (09:06→21:10)
[2018-07-10] MEDS: HYDROXYUREA 500 MG CAP PO (09:15)
[2018-07-10] MEDS: ENOXAPARIN 40 MG/0.4 ML SYG SC (09:16)
[2018-07-10 09:22] LABS: ADD MAN DIFF? NO
[2018-07-10 09:25] LABS: WHITE BLOOD COUNT 9.8 10^3/ul (4.8-10.8)
[2018-07-10 09:25] LABS: BASOPHIL # 0.1 10^3/ul (0.0-0.1); BASOPHILS % 1.4 % (0.0-2.0); EOSINOPHILS # 0.3 10^3/ul (0.0-0.5); HEMOGLOBIN 8.4 g/dl (12.0-16.0); LYMPHOCYTES # 1.9 10^3/ul (0.8-2.9); LYMPHOCYTES % 18.9 % (15.0-51.0); MEAN CORPUSCULAR HEMOGLOBIN 29.3 pg (29.0-33.0); MEAN CORPUSCULAR HGB CONC 33.6 g/dl (32.0-37.0); MEAN CORPUSCULAR VOLUME 87.1 fl (82.0-101.0); MEAN PLATELET VOLUME 10.3 fl (7.4-10.4); MONOCYTE # 1.2 10^3/ul (0.3-0.9); MONOCYTES % 11.8 % (0.0-11.0); NEUTROPHIL # 6.3 10^3/ul (1.6-7.5); NEUTROPHILS % 64.4 % (39.0-77.0); NUCLEATED RED BLOOD CELLS # 0.1 10^3/ul (0.0-0.0); NUCLEATED RED BLOOD CELLS% 0.9 /100WBC (0.0-0.0); PLATELET COUNT 551 10^3/UL (140-415); RED BLOOD COUNT 2.87 10^6/ul (4.20-5.40); RED CELL DISTRIBUTION WIDTH 17.1 % (11.5-14.5)
[2018-07-10 10:05] LABS: ANION GAP 14 (8-16); BLOOD UREA NITROGEN 4 mg/dl (7-20); CALCIUM 9.5 mg/dl (8.4-10.2); CARBON DIOXIDE 27 mmol/L (21-31); CHLORIDE 103 mmol/L (97-110); CREATININE 0.39 mg/dl (0.44-1.00); GLUCOSE 83 mg/dl (70-220); POTASSIUM 4.1 mmol/L (3.5-5.1); SODIUM 140 mmol/L (135-144)
[2018-07-10] MEDS: LORAZEPAM 0.5 MG TAB PO ×2 (14:00→22:08)
[2018-07-10] MEDS: HYDROmorphONE 2 MG TAB PO (15:56)
[2018-07-10] MEDS: SOD CHLORIDE IV (21:10)
[2018-07-10] MEDS: MULTIVITAMINS IV (21:10)
[2018-07-10] MEDS: POTASSIUM CHLORIDE IV (21:10)
[2018-07-11] MEDS: DIPHENHYDRAMINE 50 MG INJ IV ×3 (01:00→09:04)
[2018-07-11] MEDS: HYDROmorphONE 1 MG/ML SYG IV ×5 (01:00→09:04)
[2018-07-11] MEDS: 1/2 NS + KCL 20 MEQ 1,000 ML IV (02:07)
[2018-07-11] MEDS: FOLIC ACID 1 MG TAB PO (08:32)
[2018-07-11] MEDS: HYDROXYUREA 500 MG CAP PO (08:34)
[2018-07-11] MEDS: SENNA TAB PO (08:35)
[2018-07-11] MEDS: ENOXAPARIN 40 MG/0.4 ML SYG SC (08:36)
== END 2018-07-11 10:25 | disposition home or self-care (01) | DRG 812 ==
LOC: 2NE 23:24 → FTE 17:45
DX: D57.00 Hb-SS disease with crisis, unspecified (principal); F11.20 Opioid dependence, uncomplicated; E86.0 Dehydration
CPT/HCPCS: 36430; 71045; 71275; 72128; 72131; 74177; 80048; 80307; 81001; 83605; 84703; 85025; 85045; 86850; 86900; 86901; 86920; 87040; 93005; 96361; 96374; 96375; 97161; 99285-25

== ENCOUNTER 2018-07-12 20:15 | Emergency (ER) | payer OTHER ==
[2018-07-12] MEDS: PANTOPRAZOLE (EC) 40 MG TAB PO (21:18)
[2018-07-12] MEDS: OXYCODONE/ACETAMINOPHEN (10/325) TAB PO (21:19)
[2018-07-12 21:49] LABS: ADD MAN DIFF? NO
[2018-07-12 21:54] LABS: BASOPHIL # 0.1 10^3/ul (0.0-0.1); BASOPHILS % 1.3 % (0.0-2.0); EOSINOPHILS # 0.2 10^3/ul (0.0-0.5); EOSINOPHILS % 1.9 % (0.0-7.0); HEMATOCRIT 26.5 % (37.0-47.0); HEMOGLOBIN 9.1 g/dl (12.0-16.0); LYMPHOCYTES # 2.1 10^3/ul (0.8-2.9); LYMPHOCYTES % 19.2 % (15.0-51.0); MEAN CORPUSCULAR HEMOGLOBIN 29.1 pg (29.0-33.0); MEAN CORPUSCULAR HGB CONC 34.3 g/dl (32.0-37.0); MEAN CORPUSCULAR VOLUME 84.7 fl (82.0-101.0); MEAN PLATELET VOLUME 9.4 fl (7.4-10.4); MONOCYTE # 1.3 10^3/ul (0.3-0.9); MONOCYTES % 11.8 % (0.0-11.0); NEUTROPHILS % 65.3 % (39.0-77.0); NUCLEATED RED BLOOD CELLS # 0.1 10^3/ul (0.0-0.0); NUCLEATED RED BLOOD CELLS% 0.5 /100WBC (0.0-0.0); PLATELET COUNT 619 10^3/UL (140-415); RED BLOOD COUNT 3.13 10^6/ul (4.20-5.40)
[2018-07-12 21:54] LABS: WHITE BLOOD COUNT 10.7 10^3/ul (4.8-10.8)
[2018-07-12 22:14] LABS: ANION GAP 16 (8-16); BLOOD UREA NITROGEN 20 mg/dl (7-20); CALCIUM 9.7 mg/dl (8.4-10.2); CARBON DIOXIDE 25 mmol/L (21-31); CHLORIDE 104 mmol/L (97-110); CREATININE 0.61 mg/dl (0.44-1.00); GLUCOSE 111 mg/dl (70-220); POTASSIUM 3.5 mmol/L (3.5-5.1); SODIUM 141 mmol/L (135-144)
== END 2018-07-12 22:51 | disposition home or self-care (01) ==
LOC: E/R 20:15
DX: R07.2 Precordial pain (principal); D64.9 Anemia, unspecified; Z87.891 Personal history of nicotine dependence
CPT/HCPCS: 71045; 80048; 85025; 93005; 99285-25

== ENCOUNTER 2018-07-19 18:57 | Emergency (ER) | payer OTHER ==
[2018-07-19] MEDS: SOD CHLORIDE 0.9% 1,000 ML IV (19:33)
[2018-07-19] MEDS: KETOROLAC 30 MG INJ IV (19:33)
[2018-07-19] MEDS: DIPHENHYDRAMINE 50 MG INJ IV ×3 (19:33→21:39)
[2018-07-19] MEDS: HYDROmorphONE 2 MG/ML SYG IV ×3 (19:33→21:40)
[2018-07-19 19:38] LABS: ADD MAN DIFF? NO
[2018-07-19 19:44] LABS: HEMATOCRIT 24.3 % (37.0-47.0); HEMOGLOBIN 8.3 g/dl (12.0-16.0); MEAN CORPUSCULAR HEMOGLOBIN 29.1 pg (29.0-33.0); MEAN CORPUSCULAR HGB CONC 34.2 g/dl (32.0-37.0); MEAN CORPUSCULAR VOLUME 85.3 fl (82.0-101.0); MEAN PLATELET VOLUME 9.1 fl (7.4-10.4); NUCLEATED RED BLOOD CELLS% 1.4 /100WBC (0.0-0.0); PLATELET COUNT 702 10^3/UL (140-415); RED BLOOD COUNT 2.85 10^6/ul (4.20-5.40); RED CELL DISTRIBUTION WIDTH 19.1 % (11.5-14.5); RETICULOCYTE COUNT # 0.207 X10^6 (0.020-0.110); RETICULOCYTE COUNT % 7.3 % (0.5-1.5); RETICULOCYTE RBC 2.85
[2018-07-19 19:44] LABS: WHITE BLOOD COUNT 11.2 10^3/ul (4.8-10.8)
[2018-07-19 19:54] LABS: POSITIVE DIFF @See below
[2018-07-19 20:00] LABS: ANION GAP 10 (8-16); BLOOD UREA NITROGEN 16 mg/dl (7-20); CALCIUM 8.9 mg/dl (8.4-10.2); CARBON DIOXIDE 26 mmol/L (21-31); CHLORIDE 111 mmol/L (97-110); CREATININE 0.53 mg/dl (0.44-1.00); GLUCOSE 111 mg/dl (70-220); POTASSIUM 3.3 mmol/L (3.5-5.1); SODIUM 144 mmol/L (135-144)
[2018-07-19 21:45] LABS: ANISOCYTOSIS 1+ (0-0); BASOPHIL #M 0.3 10^3/ul (0.0-0.0); BASOPHILS % (M) 3 % (0-2); EOSINOPHILS % (M) 6 % (0-7); ERYTHROBLAST% (NRBC) (M) 2 % (0-0); GIANT THROMBO% (M) 3 % (0-0); LYMPHOCYTES #M 6.2 10^3/ul (0.8-2.9); LYMPHOCYTES % (M) 56 % (15-51); MONOCYTE #M 0.8 10^3/ul (0.3-0.9); MONOCYTES % (M) 8 % (0-11); PLATELET MORPHOLOGY COMMENT @See below; POIKILOCYTOSIS 1+ (0-0); POLYCHROMASIA 1+ (0-0); SEGMENTED NEUTROPHILS (M) % 27 % (39-77); SICKLE CELL 1+ (0-0); SMUDGE%M 13 % (0-0); TARGET CELLS 1+ (0-0)
[2018-07-19] MEDS: SOD CHLORIDE 0.9% 500 ML IV (21:45)
== END 2018-07-19 22:46 | disposition home or self-care (01) ==
LOC: E/R 18:57
DX: D57.219 Sickle-cell/Hb-C disease with crisis, unspecified (principal); R40.2252 Coma scale, best verbal response, oriented, at arrival to emergency department; R40.2362 Coma scale, best motor response, obeys commands, at arrival to emergency department; R40.2142 Coma scale, eyes open, spontaneous, at arrival to emergency department
CPT/HCPCS: 36415; 80048; 85025; 85045; 96361; 96374; 96375; 96376; 99284-25

== ENCOUNTER 2018-07-31 16:50 | Inpatient (IN) | payer OTHER ==
[2018-07-31] MEDS ORDERED: HYDROmorphONE 1 MG/ML SYG IV (17:28)
[2018-07-31 18:04] LABS: ADD MAN DIFF? NO
[2018-07-31 18:13] LABS: BASOPHIL # 0.2 10^3/ul (0.0-0.1); BASOPHILS % 1.4 % (0.0-2.0); EOSINOPHILS # 0.5 10^3/ul (0.0-0.5); EOSINOPHILS % 4.5 % (0.0-7.0); HEMATOCRIT 25.2 % (37.0-47.0); HEMOGLOBIN 8.8 g/dl (12.0-16.0); LYMPHOCYTES # 3.1 10^3/ul (0.8-2.9); LYMPHOCYTES % 28.1 % (15.0-51.0); MEAN CORPUSCULAR HGB CONC 34.9 g/dl (32.0-37.0); MEAN CORPUSCULAR VOLUME 83.2 fl (82.0-101.0); MEAN PLATELET VOLUME 9.3 fl (7.4-10.4); MONOCYTE # 1.3 10^3/ul (0.3-0.9); MONOCYTES % 11.5 % (0.0-11.0); NEUTROPHIL # 5.9 10^3/ul (1.6-7.5); NEUTROPHILS % 53.7 % (39.0-77.0); NUCLEATED RED BLOOD CELLS # 0.2 10^3/ul (0.0-0.0); NUCLEATED RED BLOOD CELLS% 1.5 /100WBC (0.0-0.0); PLATELET COUNT 528 10^3/UL (140-415); RED BLOOD COUNT 3.03 10^6/ul (4.20-5.40); RED CELL DISTRIBUTION WIDTH 19.6 % (11.5-14.5); RETICULOCYTE COUNT % 6.9 % (0.5-1.5); RETICULOCYTE RBC 3.03
[2018-07-31] MEDS: DIPHENHYDRAMINE 50 MG INJ IV ×4 (18:13→22:57)
[2018-07-31] MEDS: SOD CHLORIDE 0.9% 1,000 ML IV ×2 (18:13→23:37)
[2018-07-31] MEDS: HYDROmorphONE 2 MG/ML SYG IV ×4 (18:13→21:47)
[2018-07-31] MEDS: ONDANSETRON 4 MG INJ IV (18:13)
[2018-07-31 18:34] LABS: ANION GAP 12 (8-16); BLOOD UREA NITROGEN 9 mg/dl (7-20); CALCIUM 9.6 mg/dl (8.4-10.2); CARBON DIOXIDE 26 mmol/L (21-31); CHLORIDE 106 mmol/L (97-110); CREATININE 0.42 mg/dl (0.44-1.00); GLUCOSE 86 mg/dl (70-220); POTASSIUM 3.9 mmol/L (3.5-5.1); SODIUM 140 mmol/L (135-144)
[2018-07-31 18:46] LABS: TROPONIN-I 0.012 ng/ml (0.000-0.120)
[2018-07-31] MEDS: HYDROmorphONE 0.5 MG/0.5 ML SYG IV (22:58)
[2018-07-31] MEDS ORDERED: ONDANSETRON 4 MG INJ IV (23:30)
[2018-07-31] MEDS ORDERED: ACETAMINOPHEN 325 MG TAB PO (23:30)
[2018-08-01] MEDS: HYDROmorphONE 2 MG/ML SYG IV ×10 (02:20→22:06)
[2018-08-01] MEDS: DIPHENHYDRAMINE 50 MG INJ IV ×4 (04:58→20:06)
[2018-08-01] MEDS: SOD CHLORIDE 0.9% 1,000 ML IV ×2 (08:19→12:02)
[2018-08-01] MEDS: ENOXAPARIN 40 MG/0.4 ML SYG SC (08:35)
[2018-08-01] MEDS: HYDROXYUREA 500 MG CAP PO (22:17)
[2018-08-02] MEDS: HYDROmorphONE 2 MG/ML SYG IV ×10 (02:05→18:35)
[2018-08-02] MEDS: DIPHENHYDRAMINE 50 MG INJ IV ×6 (04:05→20:27)
[2018-08-02] MEDS: SOD CHLORIDE 0.9% 1,000 ML IV ×3 (05:58→22:29)
[2018-08-02] MEDS: ACETAMINOPHEN 325 MG TAB PO ×2 (07:23→13:51)
[2018-08-02] MEDS: ONDANSETRON 4 MG INJ IV (07:23)
[2018-08-02] MEDS: ENOXAPARIN 40 MG/0.4 ML SYG SC (08:27)
[2018-08-02] MEDS: HYDROXYUREA 500 MG CAP PO ×2 (09:35→20:29)
[2018-08-02] MEDS: FOLIC ACID 1 MG TAB PO (09:36)
[2018-08-02 16:03] LABS: ANION GAP 8 (5-13); BLOOD UREA NITROGEN 6 mg/dl (7-20); CALCIUM 8.7 mg/dl (8.4-10.2); CARBON DIOXIDE 31 mmol/L (21-31); CHLORIDE 105 mmol/L (97-110); CREATININE 0.35 mg/dl (0.44-1.00); GLUCOSE 77 mg/dl (70-220); POTASSIUM 4.1 mmol/L (3.5-5.1); SODIUM 140 mmol/L (135-144)
[2018-08-02 16:47] LABS: ABNORMAL IP MESSAGE 1; HEMOGLOBIN 7.4 g/dl (12.0-16.0); MEAN CORPUSCULAR HEMOGLOBIN 29.5 pg (29.0-33.0); MEAN CORPUSCULAR HGB CONC 35.2 g/dl (32.0-37.0); MEAN CORPUSCULAR VOLUME 83.7 fl (82.0-101.0); MEAN PLATELET VOLUME 10.3 fl (7.4-10.4); NUCLEATED RED BLOOD CELLS% 2.5 /100WBC (0.0-0.0); PLATELET COUNT 478 10^3/UL (140-415); RED BLOOD COUNT 2.51 10^6/ul (4.20-5.40); RED CELL DISTRIBUTION WIDTH 22.6 % (11.5-14.5)
[2018-08-02 16:47] LABS: WHITE BLOOD COUNT 14.5 10^3/ul (4.8-10.8)
[2018-08-02 16:51] LABS: POSITIVE DIFF @See below
[2018-08-02 16:52] LABS: ADD MAN DIFF? YES
[2018-08-02 19:40] LABS: ANISOCYTOSIS 1+ (0-0); BASOPHIL #M 0.7 10^3/ul (0.0-0.0); BASOPHILS % (M) 5 % (0-2); EOSINOPHILS % (M) 6 % (0-7); ERYTHROBLAST% (NRBC) (M) 5 % (0-0); GIANT THROMBO% (M) 5 % (0-0); LYMPHOCYTES % (M) 35 % (15-51); MONOCYTE #M 1.5 10^3/ul (0.3-0.9); MONOCYTES % (M) 11 % (0-11); MYELOCYTES #M 0.1 10^3/ul (0.0-0.0); MYELOCYTES % (M) 1 % (0-0); OVALOCYTES 1+ (0-0); PLATELET MORPHOLOGY COMMENT @See below; POIKILOCYTOSIS 2+ (0-0); POLYCHROMASIA 3+ (0-0); SEGMENTED NEUTROPHILS (M) % 43 % (39-77); SICKLE CELL 1+ (0-0); SMUDGE%M 7 % (0-0)
[2018-08-02] MEDS: HYDROmorphONE 1 MG/ML SYG IV ×2 (20:28→22:29)
[2018-08-03] MEDS: HYDROmorphONE 1 MG/ML SYG IV ×11 (00:59→22:33)
[2018-08-03] MEDS: DIPHENHYDRAMINE 50 MG INJ IV ×6 (01:04→22:32)
[2018-08-03] MEDS: SOD CHLORIDE 0.9% 250 ML IV* (03:46)
[2018-08-03 03:57] LABS: IMMEDIATE SPIN CROSSMATCH 1 2
[2018-08-03] MEDS: HYDROXYUREA 500 MG CAP PO ×2 (09:33→21:47)
[2018-08-03] MEDS: ENOXAPARIN 40 MG/0.4 ML SYG SC (09:34)
[2018-08-03] MEDS: FOLIC ACID 1 MG TAB PO (09:34)
[2018-08-03 12:35] LABS: ADD MAN DIFF? NO
[2018-08-03 12:36] LABS: WHITE BLOOD COUNT 10.3 10^3/ul (4.8-10.8)
[2018-08-03 12:36] LABS: BASOPHIL # 0.1 10^3/ul (0.0-0.1); EOSINOPHILS # 0.7 10^3/ul (0.0-0.5); EOSINOPHILS % 6.8 % (0.0-7.0); HEMATOCRIT 23.6 % (37.0-47.0); HEMOGLOBIN 8.2 g/dl (12.0-16.0); LYMPHOCYTES # 2.7 10^3/ul (0.8-2.9); LYMPHOCYTES % 26.4 % (15.0-51.0); MEAN CORPUSCULAR HEMOGLOBIN 29.4 pg (29.0-33.0); MEAN CORPUSCULAR HGB CONC 34.7 g/dl (32.0-37.0); MEAN CORPUSCULAR VOLUME 84.6 fl (82.0-101.0); MEAN PLATELET VOLUME 9.2 fl (7.4-10.4); MONOCYTES % 10.1 % (0.0-11.0); NEUTROPHIL # 5.7 10^3/ul (1.6-7.5); NEUTROPHILS % 54.9 % (39.0-77.0); NUCLEATED RED BLOOD CELLS # 0.5 10^3/ul (0.0-0.0); NUCLEATED RED BLOOD CELLS% 4.9 /100WBC (0.0-0.0); PLATELET COUNT 443 10^3/UL (140-415); RED BLOOD COUNT 2.79 10^6/ul (4.20-5.40); RED CELL DISTRIBUTION WIDTH 21.8 % (11.5-14.5)
[2018-08-03 13:16] LABS: LACTIC ACID 0.9 mmol/L (0.5-2.0)
[2018-08-03] MEDS: SOD CHLORIDE 0.9% 1,000 ML IV (15:50)
[2018-08-03] MEDS: LORAZEPAM 2 MG INJ IV (23:53)
[2018-08-04] MEDS: DIPHENHYDRAMINE 50 MG INJ IV ×5 (04:47→21:01)
[2018-08-04] MEDS: HYDROmorphONE 1 MG/ML SYG IV ×10 (04:47→23:21)
[2018-08-04 05:13] LABS: ADD MAN DIFF? NO
[2018-08-04 05:23] LABS: BASOPHIL # 0.1 10^3/ul (0.0-0.1); BASOPHILS % 1.2 % (0.0-2.0); EOSINOPHILS # 0.7 10^3/ul (0.0-0.5); EOSINOPHILS % 7.6 % (0.0-7.0); HEMATOCRIT 26.6 % (37.0-47.0); HEMOGLOBIN 9.2 g/dl (12.0-16.0); LYMPHOCYTES # 2.1 10^3/ul (0.8-2.9); LYMPHOCYTES % 22.2 % (15.0-51.0); MEAN CORPUSCULAR HEMOGLOBIN 29.3 pg (29.0-33.0); MEAN CORPUSCULAR HGB CONC 34.6 g/dl (32.0-37.0); MEAN CORPUSCULAR VOLUME 84.7 fl (82.0-101.0); MEAN PLATELET VOLUME 9.8 fl (7.4-10.4); MONOCYTE # 0.9 10^3/ul (0.3-0.9); MONOCYTES % 9.1 % (0.0-11.0); NEUTROPHIL # 5.7 10^3/ul (1.6-7.5); NUCLEATED RED BLOOD CELLS # 0.8 10^3/ul (0.0-0.0); NUCLEATED RED BLOOD CELLS% 7.9 /100WBC (0.0-0.0); PLATELET COUNT 507 10^3/UL (140-415); RED BLOOD COUNT 3.14 10^6/ul (4.20-5.40); RED CELL DISTRIBUTION WIDTH 21.7 % (11.5-14.5)
[2018-08-04 05:23] LABS: WHITE BLOOD COUNT 9.7 10^3/ul (4.8-10.8)
[2018-08-04 05:55] LABS: ANION GAP 9 (5-13); BLOOD UREA NITROGEN 4 mg/dl (7-20); CARBON DIOXIDE 26 mmol/L (21-31); CHLORIDE 108 mmol/L (97-110); CREATININE 0.35 mg/dl (0.44-1.00); GLUCOSE 86 mg/dl (70-220); SODIUM 143 mmol/L (135-144)
[2018-08-04 06:01] LABS: POTASSIUM 4.2 mmol/L (3.5-5.1)
[2018-08-04] MEDS: FOLIC ACID 1 MG TAB PO (08:43)
[2018-08-04] MEDS: SOD CHLORIDE 0.9% 1,000 ML IV ×2 (08:57→16:54)
[2018-08-04] MEDS: ENOXAPARIN 40 MG/0.4 ML SYG SC (08:57)
[2018-08-04] MEDS: HYDROXYUREA 500 MG CAP PO ×2 (10:58→20:53)
[2018-08-04] MEDS: MUPIROCIN 2% 22 GM OINT TOP ×2 (12:52→20:54)
[2018-08-04] MEDS ORDERED: MUPIROCIN 2% 15 GM CR TOP (13:00)
[2018-08-04] MEDS ORDERED: MUPIROCIN 2% 22 GM OINT TOP (21:00)
[2018-08-04] MEDS: LORAZEPAM 2 MG INJ IV (22:33)
[2018-08-05] MEDS: DIPHENHYDRAMINE 50 MG INJ IV ×4 (01:17→14:33)
[2018-08-05] MEDS: HYDROmorphONE 1 MG/ML SYG IV ×6 (01:17→14:35)
[2018-08-05 05:32] LABS: ADD MAN DIFF? NO
[2018-08-05 05:41] LABS: BASOPHIL # 0.1 10^3/ul (0.0-0.1); BASOPHILS % 1.6 % (0.0-2.0); EOSINOPHILS # 0.6 10^3/ul (0.0-0.5); EOSINOPHILS % 7.9 % (0.0-7.0); HEMATOCRIT 24.3 % (37.0-47.0); HEMOGLOBIN 8.3 g/dl (12.0-16.0); LYMPHOCYTES # 2.4 10^3/ul (0.8-2.9); LYMPHOCYTES % 29.6 % (15.0-51.0); MEAN CORPUSCULAR HEMOGLOBIN 29.6 pg (29.0-33.0); MEAN CORPUSCULAR HGB CONC 34.2 g/dl (32.0-37.0); MEAN CORPUSCULAR VOLUME 86.8 fl (82.0-101.0); MONOCYTE # 1.1 10^3/ul (0.3-0.9); MONOCYTES % 13.5 % (0.0-11.0); NEUTROPHIL # 3.8 10^3/ul (1.6-7.5); NEUTROPHILS % 46.7 % (39.0-77.0); NUCLEATED RED BLOOD CELLS% 12.4 /100WBC (0.0-0.0); PLATELET COUNT 445 10^3/UL (140-415); RED CELL DISTRIBUTION WIDTH 21.2 % (11.5-14.5)
[2018-08-05 05:41] LABS: WHITE BLOOD COUNT 8.2 10^3/ul (4.8-10.8)
[2018-08-05 05:53] LABS: POSITIVE DIFF @See below
[2018-08-05 06:19] LABS: ANION GAP 5 (5-13); BLOOD UREA NITROGEN 5 mg/dl (7-20); CALCIUM 8.9 mg/dl (8.4-10.2); CARBON DIOXIDE 30 mmol/L (21-31); CHLORIDE 106 mmol/L (97-110); CREATININE 0.35 mg/dl (0.44-1.00); GLUCOSE 83 mg/dl (70-220); SODIUM 141 mmol/L (135-144)
[2018-08-05] MEDS: SOD CHLORIDE 0.9% 1,000 ML IV (06:29)
[2018-08-05] MEDS: ONDANSETRON 4 MG INJ IV (08:29)
[2018-08-05] MEDS: MUPIROCIN 2% 22 GM OINT TOP ×2 (09:00→13:00)
[2018-08-05] MEDS: ENOXAPARIN 40 MG/0.4 ML SYG SC (09:00)
[2018-08-05] MEDS: FOLIC ACID 1 MG TAB PO (10:18)
[2018-08-05] MEDS: HYDROXYUREA 500 MG CAP PO (10:19)
== END 2018-08-05 15:57 | disposition home or self-care (01) | DRG 812 ==
LOC: PP2 23:35 → E/R 16:50
DX: D57.00 Hb-SS disease with crisis, unspecified (principal); Z22.322 Carrier or suspected carrier of Methicillin resistant Staphylococcus aureus
CPT/HCPCS: 36415; 36430; 71045; 73030-RT; 80048; 83605; 84484; 85025; 85045; 86850; 86900; 86901; 86920; 87040; 87081; 93005; 96374; 96375; 96376; 99285-25

== ENCOUNTER 2018-08-15 08:31 | Emergency (ER) | payer OTHER ==
[2018-08-15] MEDS: DIPHENHYDRAMINE 50 MG INJ IV ×2 (09:52→11:42)
[2018-08-15] MEDS: ONDANSETRON 4 MG INJ IV ×2 (09:52→11:42)
[2018-08-15] MEDS: morphine 4 MG/ML VIAL IV ×2 (09:52→11:42)
[2018-08-15] MEDS: SOD CHLORIDE 0.9% 1,000 ML IV (09:52)
[2018-08-15 09:57] LABS: ABNORMAL IP MESSAGE 1; HEMATOCRIT 27.6 % (37.0-47.0); HEMOGLOBIN 9.6 g/dl (12.0-16.0); MEAN CORPUSCULAR HEMOGLOBIN 29.5 pg (29.0-33.0); MEAN CORPUSCULAR HGB CONC 34.8 g/dl (32.0-37.0); MEAN CORPUSCULAR VOLUME 84.9 fl (82.0-101.0); MEAN PLATELET VOLUME 9.8 fl (7.4-10.4); NUCLEATED RED BLOOD CELLS% 2.1 /100WBC (0.0-0.0); RED BLOOD COUNT 3.25 10^6/ul (4.20-5.40); RED CELL DISTRIBUTION WIDTH 18.5 % (11.5-14.5); RETICULOCYTE COUNT % 9.6 % (0.5-1.5); RETICULOCYTE RBC 3.25
[2018-08-15 09:57] LABS: WHITE BLOOD COUNT 9.7 10^3/ul (4.8-10.8)
[2018-08-15 09:59] LABS: PLATELET COUNT 539 10^3/UL (140-415); POSITIVE DIFF @See below
[2018-08-15 10:00] LABS: ADD MAN DIFF? YES
[2018-08-15 10:06] LABS: ALANINE AMINOTRANSFERASE 25 IU/L (13-69); ALBUMIN/GLOBULIN RATIO 1.13; ALKALINE PHOSPHATASE 79 IU/L (42-121); ANION GAP 12 (5-13); ASPARTATE AMINO TRANSFERASE 46 IU/L (15-46); BILIRUBIN,INDIRECT 2.3 mg/dl (0-1.1); BILIRUBIN,TOTAL 2.3 mg/dl (0.2-1.3); BLOOD UREA NITROGEN 12 mg/dl (7-20); CALCIUM 9.5 mg/dl (8.4-10.2); CARBON DIOXIDE 21 mmol/L (21-31); CHLORIDE 109 mmol/L (97-110); CREATININE 0.33 mg/dl (0.44-1.00); Estimated GFR > 60 mL/min (>60); GLUCOSE 90 mg/dl (70-220); LIPASE 41 U/L (23-300); POTASSIUM 4.2 mmol/L (3.5-5.1); SODIUM 142 mmol/L (135-144); TOTAL PROTEIN 9.4 g/dl (6.1-8.1)
[2018-08-15 10:13] LABS: PROTIME 13.3 Sec (11.9-14.9)
[2018-08-15 10:14] LABS: CREATINE KINASE < 20 IU/L (23-200); PARTIAL THROMBOPLASTIN TIME 21.7 Sec (23.0-35.0)
[2018-08-15 10:23] LABS: B-TYPE NATRIURETIC PEPTIDE 31 PG/ML (0-125); CK-MB < 0.22 ng/ml (0.0-2.4); TROPONIN-I < 0.012 ng/ml (0.000-0.120)
[2018-08-15 10:51] LABS: ANISOCYTOSIS 1+ (0-0); BASOPHIL #M 0.5 10^3/ul (0.0-0.0); BASOPHILS % (M) 6 % (0-2); EOSINOPHILS % (M) 10 % (0-7); ERYTHROBLAST% (NRBC) (M) 9 % (0-0); LYMPHOCYTES #M 3.4 10^3/ul (0.8-2.9); LYMPHOCYTES % (M) 36 % (15-51); MONOCYTE #M 1.6 10^3/ul (0.3-0.9); MONOCYTES % (M) 17 % (0-11); MYELOCYTES % (M) 1 % (0-0); PLATELET ESTIMATE INCREASED; PLATELET MORPHOLOGY COMMENT @See below; POIKILOCYTOSIS 1+ (0-0); POLYCHROMASIA 3+ (0-0); SEGMENTED NEUTROPHILS (M) % 30 % (39-77); SICKLE CELL 1+ (0-0); SMUDGE%M 29 % (0-0); TARGET CELLS 1+ (0-0)
== END 2018-08-15 13:57 | disposition home or self-care (01) ==
LOC: E/R 08:31
DX: D57.819 Other sickle-cell disorders with crisis, unspecified (principal)
CPT/HCPCS: 71045; 80053; 82550; 82553; 83690; 83880; 84484; 85025; 85045; 85610; 85730; 93005; 96374; 96375; 96376; 99285-25

== ENCOUNTER 2018-08-25 13:45 | Inpatient (IN) | payer OTHER ==
[2018-08-25] MEDS: SOD CHLORIDE 0.9% 1,000 ML IV (16:51)
[2018-08-25] MEDS: HYDROmorphONE 1 MG/ML SYG IV ×4 (16:52→23:29)
[2018-08-25] MEDS: DIPHENHYDRAMINE 50 MG INJ IV ×3 (16:52→19:28)
[2018-08-25 17:29] LABS: ADD MAN DIFF? NO
[2018-08-25 17:33] LABS: BASOPHIL # 0.1 10^3/ul (0.0-0.1); BASOPHILS % 0.8 % (0.0-2.0); EOSINOPHILS # 0.4 10^3/ul (0.0-0.5); EOSINOPHILS % 3.7 % (0.0-7.0); HEMATOCRIT 25.4 % (37.0-47.0); HEMOGLOBIN 8.8 g/dl (12.0-16.0); LYMPHOCYTES # 1.7 10^3/ul (0.8-2.9); LYMPHOCYTES % 15.6 % (15.0-51.0); MEAN CORPUSCULAR HEMOGLOBIN 30.1 pg (29.0-33.0); MEAN CORPUSCULAR HGB CONC 34.6 g/dl (32.0-37.0); MEAN PLATELET VOLUME 10.2 fl (7.4-10.4); MONOCYTE # 1.3 10^3/ul (0.3-0.9); NEUTROPHIL # 7.4 10^3/ul (1.6-7.5); NEUTROPHILS % 67.4 % (39.0-77.0); NUCLEATED RED BLOOD CELLS # 0.2 10^3/ul (0.0-0.0); NUCLEATED RED BLOOD CELLS% 2.1 /100WBC (0.0-0.0); PLATELET COUNT 547 10^3/UL (140-415); RED BLOOD COUNT 2.92 10^6/ul (4.20-5.40); RETICULOCYTE COUNT # 0.257 X10^6 (0.020-0.110); RETICULOCYTE COUNT % 8.8 % (0.5-1.5); RETICULOCYTE RBC 2.92
[2018-08-25 17:52] LABS: ANION GAP 8 (5-13); BLOOD UREA NITROGEN 9 mg/dl (7-20); CALCIUM 8.9 mg/dl (8.4-10.2); CARBON DIOXIDE 23 mmol/L (21-31); CHLORIDE 110 mmol/L (97-110); CREATININE 0.38 mg/dl (0.44-1.00); Estimated GFR > 60 mL/min (>60); GLUCOSE 84 mg/dl (70-220); POTASSIUM 3.6 mmol/L (3.5-5.1); SODIUM 141 mmol/L (135-144)
[2018-08-25] MEDS ORDERED: CEFOTAXIME (40 MG/ML) IV SYG IV* (19:00)
[2018-08-25] MEDS: ONDANSETRON 4 MG INJ IV (19:28)
[2018-08-25] MEDS: CEFOTAXIME 1 GM/50 ML (PMX) 50 ML IVPB (19:36)
[2018-08-25] MEDS: AZITHROMYCIN 500MG/NS (PMX) 250 ML IVPB (20:07)
[2018-08-25] MEDS ORDERED: ACETAMINOPHEN 325 MG TAB PO (21:30)
[2018-08-25] MEDS ORDERED: ONDANSETRON 4 MG INJ IV (21:30)
[2018-08-25] MEDS ORDERED: traMADol 50 MG TAB PO (23:00)
[2018-08-25] MEDS ORDERED: HYDROmorphONE 2 MG TAB PO (23:00)
[2018-08-25] MEDS: DIPHENHYDRAMINE 25 MG CAP PO (23:13)
[2018-08-26] MEDS ORDERED: OXYCODONE/ACETAMINOPHEN (5/325) TAB PO (06:00)
[2018-08-26] MEDS: CEFTRIAXONE 1 GM/50 ML (PMX) 50 ML IVPB (06:36)
[2018-08-26] MEDS: DIPHENHYDRAMINE 25 MG CAP PO (06:36)
[2018-08-26] MEDS: HYDROmorphONE 1 MG/ML SYG IV ×2 (06:36→10:38)
[2018-08-26 06:44] LABS: ADD MAN DIFF? NO
[2018-08-26 06:51] LABS: WHITE BLOOD COUNT 10.4 10^3/ul (4.8-10.8)
[2018-08-26 06:51] LABS: BASOPHIL # 0.1 10^3/ul (0.0-0.1); BASOPHILS % 1.1 % (0.0-2.0); EOSINOPHILS # 0.5 10^3/ul (0.0-0.5); EOSINOPHILS % 5.2 % (0.0-7.0); HEMATOCRIT 23.1 % (37.0-47.0); LYMPHOCYTES # 1.7 10^3/ul (0.8-2.9); LYMPHOCYTES % 16.6 % (15.0-51.0); MEAN CORPUSCULAR HGB CONC 34.6 g/dl (32.0-37.0); MEAN CORPUSCULAR VOLUME 86.5 fl (82.0-101.0); MEAN PLATELET VOLUME 9.5 fl (7.4-10.4); MONOCYTE # 1.3 10^3/ul (0.3-0.9); MONOCYTES % 12.6 % (0.0-11.0); NEUTROPHIL # 6.7 10^3/ul (1.6-7.5); NEUTROPHILS % 63.8 % (39.0-77.0); NUCLEATED RED BLOOD CELLS # 0.2 10^3/ul (0.0-0.0); NUCLEATED RED BLOOD CELLS% 1.8 /100WBC (0.0-0.0); PLATELET COUNT 506 10^3/UL (140-415); RED BLOOD COUNT 2.67 10^6/ul (4.20-5.40); RED CELL DISTRIBUTION WIDTH 18.5 % (11.5-14.5)
[2018-08-26 07:33] LABS: ALANINE AMINOTRANSFERASE 27 IU/L (13-69); ALBUMIN/GLOBULIN RATIO 1.17; ALKALINE PHOSPHATASE 70 IU/L (42-121); ANION GAP 9 (5-13); ASPARTATE AMINO TRANSFERASE 32 IU/L (15-46); BILIRUBIN,INDIRECT 2.3 mg/dl (0-1.1); BILIRUBIN,TOTAL 2.3 mg/dl (0.2-1.3); BLOOD UREA NITROGEN 7 mg/dl (7-20); CALCIUM 8.3 mg/dl (8.4-10.2); CARBON DIOXIDE 23 mmol/L (21-31); CHLORIDE 112 mmol/L (97-110); CREATININE 0.36 mg/dl (0.44-1.00); Estimated GFR > 60 mL/min (>60); GLUCOSE 83 mg/dl (70-220); POTASSIUM 3.6 mmol/L (3.5-5.1); SODIUM 144 mmol/L (135-144); TOTAL PROTEIN 7.4 g/dl (6.1-8.1)
[2018-08-26] MEDS: FLUTICASONE 0.05% 16 GM NAS SPRAY NASAL (09:00)
[2018-08-26] MEDS: FOLIC ACID 1 MG TAB PO (09:12)
[2018-08-26] MEDS: DOCUSATE SODIUM 100 MG CAP PO ×2 (09:12→13:00)
[2018-08-26] MEDS: HYDROXYUREA 500 MG CAP PO (09:12)
[2018-08-26] MEDS: HEPARIN (100 UNITS/ML) 5 ML SYG CATHETER (13:40)
[2018-08-26] MEDS ORDERED: AZITHROMYCIN 500MG/NS (PMX) 250 ML IVPB (20:00)
== END 2018-08-26 13:45 | disposition home or self-care (01) | DRG 811 ==
LOC: 2NE 08-26 11:25 → E/R 13:45 → 2NE 21:31
DX: D57.00 Hb-SS disease with crisis, unspecified (principal); J18.9 Pneumonia, unspecified organism; J32.9 Chronic sinusitis, unspecified
CPT/HCPCS: 71045; 80048; 80053; 85025; 85045; 96374; 96375; 96376; 99285-25

== ENCOUNTER 2018-09-01 19:06 | Emergency (ER) | payer OTHER ==
[2018-09-01] MEDS ORDERED: HYDROCODONE/APAP (10/325) TAB PO (20:00)
[2018-09-01] MEDS: ONDANSETRON 4 MG INJ IV ×2 (20:38→21:56)
[2018-09-01] MEDS: HYDROmorphONE 1 MG/ML SYG IV ×3 (20:39→23:31)
[2018-09-01] MEDS: SOD CHLORIDE 0.9% 1,000 ML IV (20:39)
[2018-09-01] MEDS: DIPHENHYDRAMINE 50 MG INJ IV ×3 (20:39→23:30)
[2018-09-01 20:51] LABS: ADD MAN DIFF? NO
[2018-09-01 20:54] LABS: BASOPHIL # 0.1 10^3/ul (0.0-0.1); BASOPHILS % 0.9 % (0.0-2.0); EOSINOPHILS # 0.4 10^3/ul (0.0-0.5); EOSINOPHILS % 3.1 % (0.0-7.0); HEMATOCRIT 26.6 % (37.0-47.0); HEMOGLOBIN 9.1 g/dl (12.0-16.0); LYMPHOCYTES # 2.9 10^3/ul (0.8-2.9); MEAN CORPUSCULAR HEMOGLOBIN 29.7 pg (29.0-33.0); MEAN CORPUSCULAR HGB CONC 34.2 g/dl (32.0-37.0); MEAN CORPUSCULAR VOLUME 86.9 fl (82.0-101.0); MEAN PLATELET VOLUME 9.5 fl (7.4-10.4); MONOCYTE # 1.3 10^3/ul (0.3-0.9); MONOCYTES % 9.9 % (0.0-11.0); NEUTROPHIL # 8.3 10^3/ul (1.6-7.5); NEUTROPHILS % 63.2 % (39.0-77.0); NUCLEATED RED BLOOD CELLS # 0.8 10^3/ul (0.0-0.0); NUCLEATED RED BLOOD CELLS% 5.8 /100WBC (0.0-0.0); PLATELET COUNT 564 10^3/UL (140-415); RED BLOOD COUNT 3.06 10^6/ul (4.20-5.40); RED CELL DISTRIBUTION WIDTH 19.2 % (11.5-14.5); RETICULOCYTE COUNT # 0.346 X10^6 (0.020-0.110); RETICULOCYTE COUNT % 11.3 % (0.5-1.5); RETICULOCYTE RBC 3.06
[2018-09-01 20:54] LABS: WHITE BLOOD COUNT 13.1 10^3/ul (4.8-10.8)
[2018-09-01 21:11] LABS: ALANINE AMINOTRANSFERASE 34 IU/L (13-69); ALBUMIN/GLOBULIN RATIO 1.16; ALKALINE PHOSPHATASE 101 IU/L (42-121); ANION GAP 7 (5-13); ASPARTATE AMINO TRANSFERASE 56 IU/L (15-46); BILIRUBIN,INDIRECT 2.3 mg/dl (0-1.1); BILIRUBIN,TOTAL 2.3 mg/dl (0.2-1.3); BLOOD UREA NITROGEN 6 mg/dl (7-20); CALCIUM 9.5 mg/dl (8.4-10.2); CARBON DIOXIDE 25 mmol/L (21-31); CHLORIDE 107 mmol/L (97-110); CREATININE 0.39 mg/dl (0.44-1.00); Estimated GFR > 60 mL/min (>60); GLUCOSE 100 mg/dl (70-220); SODIUM 139 mmol/L (135-144); TOTAL PROTEIN 9.3 g/dl (6.1-8.1)
[2018-09-01 21:23] LABS: TROPONIN-I 0.016 ng/ml (0.000-0.120)
== END 2018-09-02 | disposition home or self-care (01) ==
LOC: E/R 09-02 → FTE 19:06
DX: S62.101A Fracture of unspecified carpal bone, right wrist, initial encounter for closed fracture (principal); D57.419 Sickle-cell thalassemia, unspecified, with crisis; R07.9 Chest pain, unspecified; W18.39XA Other fall on same level, initial encounter; Y92.9 Unspecified place or not applicable
CPT/HCPCS: 36415; 71045; 73130-RT; 73562; 80053; 84484; 85025; 85045; 93005; 96374; 96375; 96376; 99285-25

== ENCOUNTER 2018-09-02 07:22 | Inpatient (IN) | payer OTHER ==
[2018-09-02 07:58] LABS: ADD MAN DIFF? NO
[2018-09-02] MEDS: SOD CHLORIDE 0.9% 1,000 ML IV (08:00)
[2018-09-02] MEDS: HYDROmorphONE 1 MG/ML SYG IV ×4 (08:00→22:26)
[2018-09-02 08:01] LABS: BASOPHIL # 0.1 10^3/ul (0.0-0.1); BASOPHILS % 0.4 % (0.0-2.0); EOSINOPHILS % 0.2 % (0.0-7.0); HEMATOCRIT 23.7 % (37.0-47.0); HEMOGLOBIN 8.2 g/dl (12.0-16.0); LYMPHOCYTES # 1.4 10^3/ul (0.8-2.9); LYMPHOCYTES % 8.2 % (15.0-51.0); MEAN CORPUSCULAR HEMOGLOBIN 29.8 pg (29.0-33.0); MEAN CORPUSCULAR HGB CONC 34.6 g/dl (32.0-37.0); MEAN CORPUSCULAR VOLUME 86.2 fl (82.0-101.0); MEAN PLATELET VOLUME 9.1 fl (7.4-10.4); MONOCYTE # 0.9 10^3/ul (0.3-0.9); MONOCYTES % 5.5 % (0.0-11.0); NEUTROPHIL # 14.4 10^3/ul (1.6-7.5); NUCLEATED RED BLOOD CELLS # 0.6 10^3/ul (0.0-0.0); NUCLEATED RED BLOOD CELLS% 3.5 /100WBC (0.0-0.0); PLATELET COUNT 495 10^3/UL (140-415); RED BLOOD COUNT 2.75 10^6/ul (4.20-5.40); RED CELL DISTRIBUTION WIDTH 18.7 % (11.5-14.5); RETICULOCYTE COUNT # 0.265 X10^6 (0.020-0.110); RETICULOCYTE COUNT % 9.6 % (0.5-1.5); RETICULOCYTE RBC 2.75
[2018-09-02 08:01] LABS: WHITE BLOOD COUNT 16.9 10^3/ul (4.8-10.8)
[2018-09-02] MEDS: DIPHENHYDRAMINE 50 MG INJ IV ×5 (08:01→20:32)
[2018-09-02] MEDS: ONDANSETRON 4 MG INJ IV (08:01)
[2018-09-02 08:19] LABS: ALANINE AMINOTRANSFERASE 36 IU/L (13-69); ALBUMIN 4.5 g/dl (3.3-4.9); ALBUMIN/GLOBULIN RATIO 1.18; ALKALINE PHOSPHATASE 80 IU/L (42-121); AMYLASE 61 U/L (11-123); ANION GAP 10 (5-13); ASPARTATE AMINO TRANSFERASE 57 IU/L (15-46); BILIRUBIN,INDIRECT 2.2 mg/dl (0-1.1); BILIRUBIN,TOTAL 2.2 mg/dl (0.2-1.3); BLOOD UREA NITROGEN 6 mg/dl (7-20); CALCIUM 8.7 mg/dl (8.4-10.2); CARBON DIOXIDE 23 mmol/L (21-31); CHLORIDE 111 mmol/L (97-110); CREATININE 0.32 mg/dl (0.44-1.00); Estimated GFR > 60 mL/min (>60); GLUCOSE 104 mg/dl (70-220); LIPASE 17 U/L (23-300); POTASSIUM 3.7 mmol/L (3.5-5.1); SODIUM 144 mmol/L (135-144); TOTAL PROTEIN 8.3 g/dl (6.1-8.1)
[2018-09-02 08:20] LABS: PARTIAL THROMBOPLASTIN TIME 32.9 Sec (23.0-35.0)
[2018-09-02 09:12] LABS: INR 1.19; PROTIME 15.3 Sec (11.9-14.9); PT RATIO 1.2
[2018-09-02] MEDS ORDERED: ACETAMINOPHEN 325 MG TAB PO (10:00)
[2018-09-02] MEDS ORDERED: ONDANSETRON 4 MG INJ IV ×2 (10:00→12:00)
[2018-09-02] MEDS ORDERED: NACL 0.9% 3 ML SYG IV (12:00)
[2018-09-02] MEDS: HYDROmorphONE 0.5 MG/0.5 ML SYG IV ×3 (12:15→18:46)
[2018-09-02] MEDS: SOD CHLORIDE 0.45% 1,000 ML IV (12:15)
[2018-09-02] MEDS: HYDROCODONE/APAP (5/325) TAB PO (13:45)
[2018-09-02] MEDS ORDERED: HYDROmorphONE 0.5 MG/0.5 ML SYG IV (20:00)
[2018-09-02] MEDS: HYDROXYUREA 500 MG CAP PO (20:47)
[2018-09-02] MEDS: SENNA TAB PO (20:48)
[2018-09-03] MEDS: HYDROmorphONE 1 MG/ML SYG IV ×12 (00:22→22:25)
[2018-09-03] MEDS: DIPHENHYDRAMINE 50 MG INJ IV ×6 (00:27→20:25)
[2018-09-03] MEDS: HYDROCODONE/APAP (5/325) TAB PO ×3 (01:05→13:40)
[2018-09-03] MEDS: SOD CHLORIDE 0.45% 1,000 ML IV ×2 (01:18→13:45)
[2018-09-03 05:17] LABS: ADD MAN DIFF? NO
[2018-09-03 05:19] LABS: ABNORMAL IP MESSAGE 1; BASOPHIL # 0.1 10^3/ul (0.0-0.1); BASOPHILS % 0.7 % (0.0-2.0); EOSINOPHILS # 0.5 10^3/ul (0.0-0.5); HEMATOCRIT 22.4 % (37.0-47.0); HEMOGLOBIN 7.7 g/dl (12.0-16.0); LYMPHOCYTES % 24.1 % (15.0-51.0); MEAN CORPUSCULAR HEMOGLOBIN 29.7 pg (29.0-33.0); MEAN CORPUSCULAR HGB CONC 34.4 g/dl (32.0-37.0); MEAN CORPUSCULAR VOLUME 86.5 fl (82.0-101.0); MEAN PLATELET VOLUME 9.4 fl (7.4-10.4); MONOCYTE # 1.7 10^3/ul (0.3-0.9); MONOCYTES % 13.7 % (0.0-11.0); NEUTROPHILS % 56.7 % (39.0-77.0); NUCLEATED RED BLOOD CELLS # 0.5 10^3/ul (0.0-0.0); NUCLEATED RED BLOOD CELLS% 3.7 /100WBC (0.0-0.0); PLATELET COUNT 461 10^3/UL (140-415); RED BLOOD COUNT 2.59 10^6/ul (4.20-5.40); RED CELL DISTRIBUTION WIDTH 18.2 % (11.5-14.5)
[2018-09-03 05:19] LABS: WHITE BLOOD COUNT 12.4 10^3/ul (4.8-10.8)
[2018-09-03 05:35] LABS: POSITIVE DIFF @See below
[2018-09-03 05:57] LABS: ALANINE AMINOTRANSFERASE 34 IU/L (13-69); ALBUMIN 4.2 g/dl (3.3-4.9); ALKALINE PHOSPHATASE 63 IU/L (42-121); ANION GAP 11 (5-13); ASPARTATE AMINO TRANSFERASE 50 IU/L (15-46); BILIRUBIN,INDIRECT 2.5 mg/dl (0-1.1); BILIRUBIN,TOTAL 2.5 mg/dl (0.2-1.3); BLOOD UREA NITROGEN 3 mg/dl (7-20); CALCIUM 8.6 mg/dl (8.4-10.2); CARBON DIOXIDE 25 mmol/L (21-31); CHLORIDE 106 mmol/L (97-110); CREATININE 0.32 mg/dl (0.44-1.00); Estimated GFR > 60 mL/min (>60); GLUCOSE 90 mg/dl (70-220); MAGNESIUM 1.5 mg/dl (1.7-2.5); PHOSPHORUS 4.1 mg/dl (2.5-4.9); POTASSIUM 3.4 mmol/L (3.5-5.1); SODIUM 142 mmol/L (135-144); TOTAL PROTEIN 7.2 g/dl (6.1-8.1)
[2018-09-03 07:38] LABS: HEMOGLOBIN A1C 4.7 % (0-5.9)
[2018-09-03] MEDS: SENNA TAB PO ×2 (09:00→20:34)
[2018-09-03] MEDS: FOLIC ACID 1 MG TAB PO (09:39)
[2018-09-03] MEDS: INFLUENZA VIRUS VACCINE 0.5 ML (DISPENSING) IM* (09:41)
[2018-09-03] MEDS: NEOMYC/POLYMYX/BACIT 30 GM OINT TOP (12:30)
[2018-09-03] MEDS: HYDROXYUREA 500 MG CAP PO ×2 (13:40→20:53)
[2018-09-03] MEDS: ENOXAPARIN 40 MG/0.4 ML SYG SC (14:21)
[2018-09-04] MEDS: HYDROmorphONE 1 MG/ML SYG IV ×10 (00:25→22:26)
[2018-09-04] MEDS: DIPHENHYDRAMINE 50 MG INJ IV ×7 (00:26→22:26)
[2018-09-04] MEDS: HYDROCODONE/APAP (5/325) TAB PO ×2 (01:36→09:25)
[2018-09-04] MEDS: SOD CHLORIDE 0.45% 1,000 ML IV ×3 (04:23→22:14)
[2018-09-04] MEDS: FOLIC ACID 1 MG TAB PO (10:22)
[2018-09-04] MEDS: ENOXAPARIN 40 MG/0.4 ML SYG SC (10:22)
[2018-09-04] MEDS: SENNA TAB PO ×2 (10:23→19:40)
[2018-09-04] MEDS: NEOMYC/POLYMYX/BACIT 30 GM OINT TOP (10:23)
[2018-09-04] MEDS: HYDROXYUREA 500 MG CAP PO ×2 (10:24→22:09)
[2018-09-04] MEDS: HYDROCODONE/APAP (7.5/325) TAB PO ×2 (15:35→19:44)
[2018-09-04] MEDS: POTASSIUM CHLORIDE (SR) 20 MEQ TAB PO (15:35)
[2018-09-04] MEDS ORDERED: HYDROCODONE/APAP (5/325) TAB PO (16:00)
[2018-09-04] MEDS: MAGNESIUM SULFATE 2 GM/50 ML 50 ML IVPB (16:33)
[2018-09-04] MEDS: POTASSIUM CHLORIDE 50 ML IVPB ×2 (18:27→18:30)
[2018-09-04] MEDS: LEVOFLOXACIN 750MG/D5W (PMX) 150 ML IVPB (22:22)
[2018-09-05] MEDS: DIPHENHYDRAMINE 50 MG INJ IV ×6 (02:27→23:51)
[2018-09-05] MEDS: HYDROmorphONE 1 MG/ML SYG IV ×6 (02:27→23:51)
[2018-09-05] MEDS: SOD CHLORIDE 0.45% 1,000 ML IV ×2 (05:34→12:36)
[2018-09-05] MEDS: FOLIC ACID 1 MG TAB PO (08:58)
[2018-09-05] MEDS: ENOXAPARIN 40 MG/0.4 ML SYG SC (08:59)
[2018-09-05] MEDS: HYDROXYUREA 500 MG CAP PO ×2 (08:59→21:50)
[2018-09-05] MEDS: SENNA TAB PO ×2 (09:00→21:00)
[2018-09-05] MEDS: NEOMYC/POLYMYX/BACIT 30 GM OINT TOP ×2 (09:00→11:38)
[2018-09-05] MEDS: HYDROCODONE/APAP (7.5/325) TAB PO ×4 (09:12→21:49)
[2018-09-05] MEDS: LEVOFLOXACIN 750MG/D5W (PMX) 150 ML IVPB (16:56)
[2018-09-06] MEDS: HYDROCODONE/APAP (7.5/325) TAB PO ×4 (01:51→15:15)
[2018-09-06] MEDS: DIPHENHYDRAMINE 50 MG INJ IV ×2 (03:53→07:51)
[2018-09-06] MEDS: HYDROmorphONE 1 MG/ML SYG IV ×2 (03:54→07:51)
[2018-09-06] MEDS: SOD CHLORIDE 0.45% 1,000 ML IV ×2 (03:57→20:26)
[2018-09-06 06:41] LABS: ADD MAN DIFF? NO
[2018-09-06 06:48] LABS: WHITE BLOOD COUNT 7.3 10^3/ul (4.8-10.8)
[2018-09-06 06:48] LABS: BASOPHIL # 0.1 10^3/ul (0.0-0.1); BASOPHILS % 0.7 % (0.0-2.0); EOSINOPHILS # 0.5 10^3/ul (0.0-0.5); HEMATOCRIT 20.8 % (37.0-47.0); HEMOGLOBIN 7.1 g/dl (12.0-16.0); LYMPHOCYTES # 2.2 10^3/ul (0.8-2.9); LYMPHOCYTES % 29.4 % (15.0-51.0); MEAN CORPUSCULAR HEMOGLOBIN 29.3 pg (29.0-33.0); MEAN CORPUSCULAR HGB CONC 34.1 g/dl (32.0-37.0); MEAN PLATELET VOLUME 10.1 fl (7.4-10.4); MONOCYTE # 0.9 10^3/ul (0.3-0.9); MONOCYTES % 12.6 % (0.0-11.0); NEUTROPHIL # 3.6 10^3/ul (1.6-7.5); NEUTROPHILS % 49.6 % (39.0-77.0); NUCLEATED RED BLOOD CELLS # 0.2 10^3/ul (0.0-0.0); NUCLEATED RED BLOOD CELLS% 2.6 /100WBC (0.0-0.0); PLATELET COUNT 501 10^3/UL (140-415); RED BLOOD COUNT 2.42 10^6/ul (4.20-5.40); RED CELL DISTRIBUTION WIDTH 17.2 % (11.5-14.5)
[2018-09-06 07:24] LABS: ANION GAP 11 (5-13); BLOOD UREA NITROGEN 5 mg/dl (7-20); CALCIUM 8.8 mg/dl (8.4-10.2); CARBON DIOXIDE 27 mmol/L (21-31); CHLORIDE 103 mmol/L (97-110); CREATININE 0.36 mg/dl (0.44-1.00); Estimated GFR > 60 mL/min (>60); GLUCOSE 79 mg/dl (70-220); POTASSIUM 3.6 mmol/L (3.5-5.1); SODIUM 141 mmol/L (135-144)
[2018-09-06 07:27] LABS: MAGNESIUM 1.5 mg/dl (1.7-2.5)
[2018-09-06 07:27] LABS: PHOSPHORUS 4.7 mg/dl (2.5-4.9)
[2018-09-06] MEDS: FOLIC ACID 1 MG TAB PO (08:53)
[2018-09-06] MEDS: SENNA TAB PO ×2 (08:55→20:27)
[2018-09-06] MEDS: ENOXAPARIN 40 MG/0.4 ML SYG SC (08:55)
[2018-09-06] MEDS: HYDROXYUREA 500 MG CAP PO ×2 (08:56→21:59)
[2018-09-06] MEDS: NEOMYC/POLYMYX/BACIT 30 GM OINT TOP (09:41)
[2018-09-06] MEDS: HYDROmorphONE 4 MG TAB PO ×2 (11:50→18:00)
[2018-09-06] MEDS: DIPHENHYDRAMINE 25 MG CAP PO ×2 (11:50→16:25)
[2018-09-06] MEDS: MAGNESIUM SULFATE 2 GM/50 ML 50 ML IVPB (12:42)
[2018-09-06] MEDS: LEVOFLOXACIN 750MG/D5W (PMX) 150 ML IVPB (16:28)
[2018-09-06 19:49] LABS: IMMEDIATE SPIN CROSSMATCH 1 12
[2018-09-06] MEDS: SOD CHLORIDE 0.9% 250 ML IV* (20:27)
[2018-09-07] MEDS: HYDROmorphONE 4 MG TAB PO (04:36)
[2018-09-07] MEDS: DIPHENHYDRAMINE 25 MG CAP PO ×2 (05:03→09:13)
[2018-09-07 07:29] LABS: HEMATOCRIT 26.9 % (37.0-47.0); HEMOGLOBIN 9.1 g/dl (12.0-16.0)
[2018-09-07] MEDS: SENNA TAB PO (09:00)
[2018-09-07] MEDS: ENOXAPARIN 40 MG/0.4 ML SYG SC (09:00)
[2018-09-07] MEDS: FOLIC ACID 1 MG TAB PO (09:13)
[2018-09-07] MEDS: HYDROXYUREA 500 MG CAP PO (09:13)
[2018-09-07] MEDS: HYDROCODONE/APAP (7.5/325) TAB PO (09:14)
[2018-09-07] MEDS: NEOMYC/POLYMYX/BACIT 30 GM OINT TOP (09:19)
[2018-09-07] MEDS: HEPARIN (100 UNITS/ML) 5 ML SYG CATHETER (10:35)
== END 2018-09-07 11:14 | disposition home or self-care (01) | DRG 812 ==
LOC: E/R 07:22 → PP2 09:51
PROC: 30233N1 Transfusion of Nonautologous Red Blood Cells into Peripheral Vein, Percutaneous Approach (ICD-10-PCS; principal; 2018-09-06)
DX: D57.00 Hb-SS disease with crisis, unspecified (principal); S62.101A Fracture of unspecified carpal bone, right wrist, initial encounter for closed fracture; W19.XXXA Unspecified fall, initial encounter; F11.988 Opioid use, unspecified with other opioid-induced disorder; F45.8 Other somatoform disorders; Z76.5 Malingerer [conscious simulation]; Y93.89 Activity, other specified; Y92.89 Other specified places as the place of occurrence of the external cause; Y99.8 Other external cause status
CPT/HCPCS: 36430; 71045; 80048; 80053; 82150; 83036; 83690; 83735; 84100; 85014; 85018; 85025; 85045; 85610; 85730; 86850; 86900; 86901; 86920; 90686; 96374; 96375; 99285-25

== ENCOUNTER 2018-09-15 08:38 | Emergency (ER) | payer OTHER ==
[2018-09-15] MEDS: DIPHENHYDRAMINE 50 MG INJ IV ×4 (10:51→13:40)
[2018-09-15 10:55] LABS: ADD MAN DIFF? NO
[2018-09-15 10:59] LABS: WHITE BLOOD COUNT 10.4 10^3/ul (4.8-10.8)
[2018-09-15 10:59] LABS: BASOPHIL # 0.1 10^3/ul (0.0-0.1); BASOPHILS % 1.3 % (0.0-2.0); EOSINOPHILS # 0.3 10^3/ul (0.0-0.5); EOSINOPHILS % 2.5 % (0.0-7.0); HEMATOCRIT 28.9 % (37.0-47.0); LYMPHOCYTES # 2.5 10^3/ul (0.8-2.9); LYMPHOCYTES % 24.1 % (15.0-51.0); MEAN CORPUSCULAR HGB CONC 34.6 g/dl (32.0-37.0); MEAN CORPUSCULAR VOLUME 83.8 fl (82.0-101.0); MEAN PLATELET VOLUME 9.1 fl (7.4-10.4); MONOCYTES % 9.9 % (0.0-11.0); NEUTROPHIL # 6.4 10^3/ul (1.6-7.5); NEUTROPHILS % 61.7 % (39.0-77.0); NUCLEATED RED BLOOD CELLS # 0.1 10^3/ul (0.0-0.0); NUCLEATED RED BLOOD CELLS% 0.9 /100WBC (0.0-0.0); PLATELET COUNT 764 10^3/UL (140-415); RED BLOOD COUNT 3.45 10^6/ul (4.20-5.40); RED CELL DISTRIBUTION WIDTH 17.2 % (11.5-14.5)
[2018-09-15] MEDS: ONDANSETRON 4 MG INJ IV (11:01)
[2018-09-15] MEDS: HYDROmorphONE 1 MG/ML SYG IV (11:01)
[2018-09-15 11:06] LABS: PATH REVIEW? YES
[2018-09-15 11:16] LABS: ANION GAP 15 (5-13); BLOOD UREA NITROGEN 10 mg/dl (7-20); CALCIUM 9.7 mg/dl (8.4-10.2); CARBON DIOXIDE 21 mmol/L (21-31); CHLORIDE 108 mmol/L (97-110); CREATININE 0.37 mg/dl (0.44-1.00); Estimated GFR > 60 mL/min (>60); GLUCOSE 124 mg/dl (70-220); POTASSIUM 3.6 mmol/L (3.5-5.1); SODIUM 144 mmol/L (135-144)
[2018-09-15 11:28] LABS: TROPONIN-I < 0.012 ng/ml (0.000-0.120)
[2018-09-15 12:27] LABS: ANISOCYTOSIS 1+ (0-0); BAND NEUTROPHILS #M 0.6 10^3/ul (0.0-0.6); BAND NEUTROPHILS % (M) 6 % (0-4); ELLIPTO 1+ (0-0); EOSINOPHILS % (M) 2 % (0-7); ERYTHROBLAST% (NRBC) (M) 3 % (0-0); LYMPHOCYTES #M 5.2 10^3/ul (0.8-2.9); LYMPHOCYTES % (M) 50 % (15-51); METAMYELOCYTES #M 0.3 10^3/ul (0.0-0.0); METAMYELOCYTES %M 3 % (0-0); MICROCYTOSIS 1+ (0-0); MONOCYTE #M 0.4 10^3/ul (0.3-0.9); MONOCYTES % (M) 4 % (0-11); MYELOCYTES #M 0.1 10^3/ul (0.0-0.0); MYELOCYTES % (M) 1 % (0-0); OVALOCYTES 1+ (0-0); PLATELET ESTIMATE INCREASED; PLATELET MORPHOLOGY COMMENT @See below; POIKILOCYTOSIS 1+ (0-0); POLYCHROMASIA 3+ (0-0); REACTIVE LYMPHOCYTES #M 0.4 10^3/ul (0.0-0.0); REACTIVE LYMPHOCYTES% (M) 4 % (0-0); SEG NEUT #M 3.2 10^3/ul (1.6-7.5); SEGMENTED NEUTROPHILS (M) % 30 % (39-77); SICKLE CELL 2+ (0-0); SMUDGE%M 11 % (0-0); STOMATOCYTES 1+ (0-0); TARGET CELLS 2+ (0-0)
[2018-09-15 12:31] LABS: RETICULOCYTE RBC 3.44
[2018-09-15 12:31] LABS: RETICULOCYTE COUNT # 0.177 X10^6 (0.020-0.110); RETICULOCYTE COUNT % 5.1 % (0.5-1.5)
[2018-09-15] MEDS: HYDROmorphONE 2 MG/ML SYG IV (13:40)
== END 2018-09-15 14:33 | disposition home or self-care (01) ==
LOC: E/R 08:38
DX: D57.00 Hb-SS disease with crisis, unspecified (principal); F17.210 Nicotine dependence, cigarettes, uncomplicated
CPT/HCPCS: 71045; 80048; 84484; 85025; 85045; 93005; 96374; 96375; 96376; 99285-25

== ENCOUNTER 2018-09-24 07:41 | Emergency (ER) | payer OTHER ==
[2018-09-24] MEDS: NALBUPHINE HCL (10 MG/1 ML) INJ IV ×2 (08:45→09:54)
[2018-09-24] MEDS: DIPHENHYDRAMINE 50 MG INJ IV ×2 (08:45→09:54)
[2018-09-24 08:59] LABS: ADD MAN DIFF? NO
[2018-09-24 09:09] LABS: BASOPHIL # 0.1 10^3/ul (0.0-0.1); BASOPHILS % 1.2 % (0.0-2.0); EOSINOPHILS # 0.5 10^3/ul (0.0-0.5); EOSINOPHILS % 5.4 % (0.0-7.0); HEMATOCRIT 25.5 % (37.0-47.0); HEMOGLOBIN 8.8 g/dl (12.0-16.0); LYMPHOCYTES # 1.6 10^3/ul (0.8-2.9); LYMPHOCYTES % 18.3 % (15.0-51.0); MEAN CORPUSCULAR HEMOGLOBIN 28.9 pg (29.0-33.0); MEAN CORPUSCULAR HGB CONC 34.5 g/dl (32.0-37.0); MEAN CORPUSCULAR VOLUME 83.9 fl (82.0-101.0); MONOCYTE # 0.9 10^3/ul (0.3-0.9); MONOCYTES % 10.7 % (0.0-11.0); NEUTROPHIL # 5.5 10^3/ul (1.6-7.5); NEUTROPHILS % 63.9 % (39.0-77.0); NUCLEATED RED BLOOD CELLS # 0.1 10^3/ul (0.0-0.0); NUCLEATED RED BLOOD CELLS% 1.4 /100WBC (0.0-0.0); PLATELET COUNT 585 10^3/UL (140-415); RED BLOOD COUNT 3.04 10^6/ul (4.20-5.40); RED CELL DISTRIBUTION WIDTH 17.6 % (11.5-14.5); RETICULOCYTE COUNT # 0.234 X10^6 (0.020-0.110); RETICULOCYTE COUNT % 7.7 % (0.5-1.5); RETICULOCYTE RBC 3.04
[2018-09-24 09:09] LABS: WHITE BLOOD COUNT 8.6 10^3/ul (4.8-10.8)
[2018-09-24 09:29] LABS: ANION GAP 10 (5-13); BLOOD UREA NITROGEN 7 mg/dl (7-20); CALCIUM 9.3 mg/dl (8.4-10.2); CARBON DIOXIDE 22 mmol/L (21-31); CHLORIDE 109 mmol/L (97-110); CREATININE 0.32 mg/dl (0.44-1.00); Estimated GFR > 60 mL/min (>60); GLUCOSE 91 mg/dl (70-220); POTASSIUM 3.8 mmol/L (3.5-5.1); SODIUM 141 mmol/L (135-144)
[2018-09-24 09:41] LABS: TROPONIN-I 0.013 ng/ml (0.000-0.120)
[2018-09-24 10:54] LABS: ANISOCYTOSIS 2+ (0-0); BAND NEUTROPHILS #M 0.2 10^3/ul (0.0-0.6); BAND NEUTROPHILS % (M) 3 % (0-4); EOSINOPHILS % (M) 7 % (0-7); ERYTHROBLAST% (NRBC) (M) 2 % (0-0); GIANT THROMBO% (M) 6 % (0-0); LYMPHOCYTES #M 1.7 10^3/ul (0.8-2.9); LYMPHOCYTES % (M) 20 % (15-51); MICROCYTOSIS 1+ (0-0); MONOCYTE #M 0.2 10^3/ul (0.3-0.9); MONOCYTES % (M) 3 % (0-11); PLATELET ESTIMATE INCREASED; POIKILOCYTOSIS 3+ (0-0); POLYCHROMASIA 1+ (0-0); SEG NEUT #M 5.8 10^3/ul (1.6-7.5); SEGMENTED NEUTROPHILS (M) % 67 % (39-77); SICKLE CELL 1+ (0-0); SMUDGE%M 3 % (0-0)
== END 2018-09-24 11:10 | disposition home or self-care (01) ==
LOC: E/R 07:41
DX: D57.00 Hb-SS disease with crisis, unspecified (principal); J06.9 Acute upper respiratory infection, unspecified; F17.210 Nicotine dependence, cigarettes, uncomplicated
CPT/HCPCS: 36415; 71045; 80048; 84484; 85025; 85045; 93005; 96374; 96375; 99285-25

== ENCOUNTER 2018-09-25 23:24 | Emergency (ER) | payer OTHER ==
[2018-09-26 00:19] LABS: ADD MAN DIFF? NO
[2018-09-26 00:21] LABS: BASOPHIL # 0.1 10^3/ul (0.0-0.1); BASOPHILS % 1.3 % (0.0-2.0); EOSINOPHILS # 0.4 10^3/ul (0.0-0.5); EOSINOPHILS % 4.1 % (0.0-7.0); HEMATOCRIT 24.1 % (37.0-47.0); HEMOGLOBIN 8.5 g/dl (12.0-16.0); LYMPHOCYTES # 2.1 10^3/ul (0.8-2.9); LYMPHOCYTES % 20.8 % (15.0-51.0); MEAN CORPUSCULAR HEMOGLOBIN 29.6 pg (29.0-33.0); MEAN CORPUSCULAR HGB CONC 35.3 g/dl (32.0-37.0); MEAN PLATELET VOLUME 9.7 fl (7.4-10.4); MONOCYTE # 1.1 10^3/ul (0.3-0.9); MONOCYTES % 11.4 % (0.0-11.0); NEUTROPHIL # 6.2 10^3/ul (1.6-7.5); NUCLEATED RED BLOOD CELLS # 0.1 10^3/ul (0.0-0.0); NUCLEATED RED BLOOD CELLS% 0.7 /100WBC (0.0-0.0); PLATELET COUNT 548 10^3/UL (140-415); RED BLOOD COUNT 2.87 10^6/ul (4.20-5.40); RED CELL DISTRIBUTION WIDTH 17.4 % (11.5-14.5); RETICULOCYTE COUNT # 0.182 X10^6 (0.020-0.110); RETICULOCYTE COUNT % 6.3 % (0.5-1.5); RETICULOCYTE RBC 2.87
[2018-09-26] MEDS: DIPHENHYDRAMINE 50 MG INJ IV (00:27)
[2018-09-26] MEDS: HYDROmorphONE 1 MG/ML SYG IV (00:27)
[2018-09-26] MEDS: ONDANSETRON 4 MG INJ IV (00:27)
[2018-09-26] MEDS: SOD CHLORIDE 0.9% 1,000 ML IV (00:27)
[2018-09-26 00:38] LABS: ANION GAP 12 (5-13); BLOOD UREA NITROGEN 12 mg/dl (7-20); CALCIUM 9.3 mg/dl (8.4-10.2); CARBON DIOXIDE 23 mmol/L (21-31); CHLORIDE 108 mmol/L (97-110); Estimated GFR > 60 mL/min (>60); GLUCOSE 113 mg/dl (70-220); POTASSIUM 3.3 mmol/L (3.5-5.1); SODIUM 143 mmol/L (135-144)
[2018-09-26 00:51] LABS: ADD UMIC NO; UR ASCORBIC ACID NEGATIVE (NEGATIVE); UR BILIRUBIN (Dip) NEGATIVE (NEGATIVE); UR BLOOD (Dip) NEGATIVE (NEGATIVE); UR CLARITY CLEAR (CLEAR); UR COLOR YELLOW (YELLOW); UR GLUCOSE (Dip) NEGATIVE (NEGATIVE); UR KETONES (Dip) NEGATIVE (NEGATIVE); UR LEUKOCYTE ESTERASE (Dip) NEGATIVE Leu/ul (NEGATIVE); UR NITRITE (Dip) NEGATIVE (NEGATIVE); UR SPECIFIC GRAVITY (Dip) 1.012 (1.003-1.030); UR TOTAL PROTEIN (Dip) NEGATIVE (NEGATIVE); UR UROBILINOGEN (Dip) 2+ mg/dL (NEGATIVE)
[2018-09-26] MEDS: NALBUPHINE HCL (10 MG/1 ML) INJ IV (02:22)
== END 2018-09-26 03:05 | disposition home or self-care (01) ==
LOC: E/R 23:24
DX: Z76.5 Malingerer [conscious simulation] (principal); F17.210 Nicotine dependence, cigarettes, uncomplicated; Z33.1 Pregnant state, incidental
CPT/HCPCS: 36415; 76801; 76817; 80048; 81003; 81025; 84702; 85025; 85045; 86850; 86900; 86901; 96374; 96375; 99285-25

== ENCOUNTER 2018-10-22 11:54 | Emergency (ER) | payer OTHER ==
[2018-10-22] MEDS: HYDROmorphONE 1 MG/ML SYG IV ×2 (13:18→15:30)
[2018-10-22] MEDS: SOD CHLORIDE 0.9% 1,000 ML IV (13:18)
[2018-10-22] MEDS: ONDANSETRON 4 MG INJ IV ×2 (13:18→15:31)
[2018-10-22] MEDS: DIPHENHYDRAMINE 50 MG INJ IV ×2 (13:18→15:30)
[2018-10-22] MEDS: IPRATROPIUM (NEB) 0.5 MG/2.5 ML AMP NEB ×2 (13:33→15:43)
[2018-10-22] MEDS: ALBUTEROL 0.083% (NEB) 2.5 MG/3 ML AMP NEB ×2 (13:34→15:43)
[2018-10-22 13:37] LABS: ADD MAN DIFF? NO
[2018-10-22 13:39] LABS: WHITE BLOOD COUNT 14.3 10^3/ul (4.8-10.8)
[2018-10-22 13:39] LABS: ABNORMAL IP MESSAGE 1; BASOPHIL # 0.2 10^3/ul (0.0-0.1); EOSINOPHILS # 0.2 10^3/ul (0.0-0.5); EOSINOPHILS % 1.2 % (0.0-7.0); HEMATOCRIT 27.4 % (37.0-47.0); HEMOGLOBIN 9.5 g/dl (12.0-16.0); LYMPHOCYTES # 0.8 10^3/ul (0.8-2.9); LYMPHOCYTES % 5.4 % (15.0-51.0); MEAN CORPUSCULAR HEMOGLOBIN 29.1 pg (29.0-33.0); MEAN CORPUSCULAR HGB CONC 34.7 g/dl (32.0-37.0); MEAN PLATELET VOLUME 9.9 fl (7.4-10.4); MONOCYTE # 1.8 10^3/ul (0.3-0.9); MONOCYTES % 12.8 % (0.0-11.0); NEUTROPHIL # 11.3 10^3/ul (1.6-7.5); NEUTROPHILS % 78.9 % (39.0-77.0); NUCLEATED RED BLOOD CELLS # 0.1 10^3/ul (0.0-0.0); NUCLEATED RED BLOOD CELLS% 0.7 /100WBC (0.0-0.0); PLATELET COUNT 545 10^3/UL (140-415); RED BLOOD COUNT 3.26 10^6/ul (4.20-5.40); RED CELL DISTRIBUTION WIDTH 16.4 % (11.5-14.5)
[2018-10-22 13:42] LABS: POSITIVE DIFF @See below
[2018-10-22 13:58] LABS: ALANINE AMINOTRANSFERASE 25 IU/L (13-69); ALBUMIN 4.7 g/dl (3.3-4.9); ALKALINE PHOSPHATASE 67 IU/L (42-121); ANION GAP 13 (5-13); ASPARTATE AMINO TRANSFERASE 35 IU/L (15-46); BILIRUBIN,INDIRECT 2.6 mg/dl (0-1.1); BILIRUBIN,TOTAL 2.6 mg/dl (0.2-1.3); BLOOD UREA NITROGEN 9 mg/dl (7-20); CALCIUM 9.2 mg/dl (8.4-10.2); CARBON DIOXIDE 24 mmol/L (21-31); CHLORIDE 104 mmol/L (97-110); CREATININE 0.38 mg/dl (0.44-1.00); Estimated GFR > 60 mL/min (>60); GLUCOSE 86 mg/dl (70-220); POTASSIUM 3.8 mmol/L (3.5-5.1); SODIUM 141 mmol/L (135-144); TOTAL PROTEIN 8.6 g/dl (6.1-8.1)
[2018-10-22 14:04] LABS: INR 1.04; PROTIME 13.7 Sec (11.9-14.9); PT RATIO 1.1
[2018-10-22 14:05] LABS: PARTIAL THROMBOPLASTIN TIME 33.7 Sec (23.0-35.0)
[2018-10-22 14:14] LABS: ANISOCYTOSIS 1+ (0-0); BAND NEUTROPHILS % (M) 7 % (0-4); BASOPHIL #M 0.1 10^3/ul (0.0-0.0); BASOPHILS % (M) 1 % (0-2); EOSINOPHILS % (M) 1 % (0-7); LYMPHOCYTES #M 1.2 10^3/ul (0.8-2.9); LYMPHOCYTES % (M) 9 % (15-51); MICROCYTOSIS 1+ (0-0); MONOCYTES % (M) 7 % (0-11); PLATELET ESTIMATE INCREASED; POIKILOCYTOSIS 1+ (0-0); POLYCHROMASIA 3+ (0-0); SEG NEUT #M 10.9 10^3/ul (1.6-7.5); SEGMENTED NEUTROPHILS (M) % 75 % (39-77); SICKLE CELL 1+ (0-0); STOMATOCYTES 1+ (0-0); TARGET CELLS 1+ (0-0)
[2018-10-22 15:58] LABS: RETICULOCYTE COUNT # 0.261 X10^6 (0.020-0.110); RETICULOCYTE COUNT % 8.1 % (0.5-1.5)
[2018-10-22 15:58] LABS: RETICULOCYTE RBC 3.24
[2018-10-22] MEDS: HEPARIN (100 UNITS/ML) 5 ML SYG CATHETER (16:18)
== END 2018-10-22 16:22 | disposition home or self-care (01) ==
LOC: E/R 11:54
DX: D57.00 Hb-SS disease with crisis, unspecified (principal); J40 Bronchitis, not specified as acute or chronic; F17.210 Nicotine dependence, cigarettes, uncomplicated; R07.9 Chest pain, unspecified
CPT/HCPCS: 36415; 71045; 80053; 85025; 85045; 85610; 85730; 94640; 94664; 96361; 96374; 96375; 96376; 99284-25

== ENCOUNTER 2018-10-28 19:05 | Inpatient (IN) | payer OTHER ==
[2018-10-28] MEDS: FOLIC ACID 1 MG TAB PO (00:30)
[2018-10-28] MEDS: DIPHENHYDRAMINE 50 MG INJ IV ×2 (19:57→20:53)
[2018-10-28] MEDS: HYDROmorphONE 0.5 MG/0.5 ML SYG IV ×3 (19:57→22:54)
[2018-10-28] MEDS: SOD CHLORIDE 0.9% 1,000 ML IV ×2 (19:57→22:53)
[2018-10-28 20:30] LABS: ANION GAP 11 (5-13); BLOOD UREA NITROGEN 13 mg/dl (7-20); CALCIUM 9.3 mg/dl (8.4-10.2); CARBON DIOXIDE 23 mmol/L (21-31); CHLORIDE 108 mmol/L (97-110); CREATININE 0.46 mg/dl (0.44-1.00); Estimated GFR > 60 mL/min (>60); GLUCOSE 105 mg/dl (70-220); POTASSIUM 3.6 mmol/L (3.5-5.1); SODIUM 142 mmol/L (135-144)
[2018-10-28 20:33] LABS: ABNORMAL IP MESSAGE 1; ADD MAN DIFF? YES; HEMATOCRIT 25.8 % (37.0-47.0); HEMOGLOBIN 8.9 g/dl (12.0-16.0); MEAN CORPUSCULAR HEMOGLOBIN 28.3 pg (29.0-33.0); MEAN CORPUSCULAR HGB CONC 34.5 g/dl (32.0-37.0); MEAN CORPUSCULAR VOLUME 82.2 fl (82.0-101.0); MEAN PLATELET VOLUME 9.9 fl (7.4-10.4); NUCLEATED RED BLOOD CELLS% 3.5 /100WBC (0.0-0.0); PLATELET COUNT 580 10^3/UL (140-415); POSITIVE DIFF @See below; RED BLOOD COUNT 3.14 10^6/ul (4.20-5.40); RED CELL DISTRIBUTION WIDTH 17.9 % (11.5-14.5); RETICULOCYTE COUNT # 0.355 X10^6 (0.020-0.110); RETICULOCYTE COUNT % 11.3 % (0.5-1.5); RETICULOCYTE RBC 3.14
[2018-10-28 20:33] LABS: WHITE BLOOD COUNT 14.8 10^3/ul (4.8-10.8)
[2018-10-28 20:50] LABS: ANISOCYTOSIS 1+ (0-0); BAND NEUTROPHILS #M 0.1 10^3/ul (0.0-0.6); BAND NEUTROPHILS % (M) 1 % (0-4); EOSINOPHILS % (M) 4 % (0-7); ERYTHROBLAST% (NRBC) (M) 7 % (0-0); GIANT THROMBO% (M) 7 % (0-0); LYMPHOCYTES #M 7.2 10^3/ul (0.8-2.9); LYMPHOCYTES % (M) 49 % (15-51); MICROCYTOSIS 1+ (0-0); MONOCYTE #M 0.7 10^3/ul (0.3-0.9); MONOCYTES % (M) 5 % (0-11); PLATELET ESTIMATE INCREASED; POLYCHROMASIA 1+ (0-0); PROMYELOCYTES #M 0.1 10^3/ul (0-0); PROMYELOCYTES % (M) 1 % (0-0); REACTIVE LYMPHOCYTES #M 0.1 10^3/ul (0.0-0.0); REACTIVE LYMPHOCYTES% (M) 1 % (0-0); SEG NEUT #M 5.8 10^3/ul (1.6-7.5); SEGMENTED NEUTROPHILS (M) % 39 % (39-77); SICKLE CELL 1+ (0-0); SMUDGE%M 12 % (0-0)
[2018-10-28] MEDS: KETOROLAC 15 MG INJ IV (20:52)
[2018-10-28] MEDS ORDERED: ACETAMINOPHEN 325 MG TAB PO ×2 (23:00)
[2018-10-28] MEDS ORDERED: ONDANSETRON 4 MG INJ IV ×2 (23:00)
[2018-10-28] MEDS ORDERED: NACL 0.9% 3 ML SYG IV (23:00)
[2018-10-28] MEDS ORDERED: DOCUSATE SODIUM 100 MG CAP PO (23:00)
[2018-10-28] MEDS ORDERED: ALBUTEROL HFA 8 GM INHALER INH (23:00)
[2018-10-28] MEDS ORDERED: DIPHENHYDRAMINE 25 MG CAP PO (23:00)
[2018-10-28] MEDS ORDERED: BISACODYL (EC) 5 MG TAB PO (23:00)
[2018-10-28] MEDS: ENOXAPARIN 40 MG/0.4 ML SYG SC (23:00)
[2018-10-28] MEDS: hydrOXYzine HCL 10 MG TAB PO (23:24)
[2018-10-29] MEDS: SOD CHLORIDE 0.9% 1,000 ML IV ×5 (00:15→23:00)
[2018-10-29] MEDS: HYDROmorphONE 1 MG/ML SYG IV ×4 (00:23→08:41)
[2018-10-29] MEDS: HYDROXYUREA 500 MG CAP PO ×3 (00:30→21:00)
[2018-10-29] MEDS: DIPHENHYDRAMINE 25 MG CAP PO ×2 (02:15→08:41)
[2018-10-29] MEDS ORDERED: DIPHENHYDRAMINE 25 MG CAP PO (05:00)
[2018-10-29 05:29] LABS: ABNORMAL IP MESSAGE 1; HEMOGLOBIN 7.4 g/dl (12.0-16.0); MEAN CORPUSCULAR HEMOGLOBIN 28.5 pg (29.0-33.0); MEAN CORPUSCULAR HGB CONC 33.6 g/dl (32.0-37.0); MEAN CORPUSCULAR VOLUME 84.6 fl (82.0-101.0); MEAN PLATELET VOLUME 10.6 fl (7.4-10.4); NUCLEATED RED BLOOD CELLS% 3.5 /100WBC (0.0-0.0); PLATELET COUNT 385 10^3/UL (140-415); RED CELL DISTRIBUTION WIDTH 18.5 % (11.5-14.5)
[2018-10-29 05:29] LABS: WHITE BLOOD COUNT 16.7 10^3/ul (4.8-10.8)
[2018-10-29 05:48] LABS: POSITIVE DIFF @See below
[2018-10-29 05:49] LABS: ADD MAN DIFF? YES; ALANINE AMINOTRANSFERASE 16 IU/L (13-69); ALBUMIN 3.8 g/dl (3.3-4.9); ALKALINE PHOSPHATASE 64 IU/L (42-121); ANION GAP 7 (5-13); ASPARTATE AMINO TRANSFERASE 38 IU/L (15-46); BILIRUBIN,INDIRECT 1.1 mg/dl (0-1.1); BILIRUBIN,TOTAL 1.1 mg/dl (0.2-1.3); BLOOD UREA NITROGEN 10 mg/dl (7-20); CALCIUM 8.2 mg/dl (8.4-10.2); CARBON DIOXIDE 22 mmol/L (21-31); CHLORIDE 114 mmol/L (97-110); CREATININE 0.33 mg/dl (0.44-1.00); Estimated GFR > 60 mL/min (>60); GLUCOSE 81 mg/dl (70-220); POTASSIUM 3.4 mmol/L (3.5-5.1); SODIUM 143 mmol/L (135-144)
[2018-10-29 05:50] LABS: ALBUMIN/GLOBULIN RATIO 1.18
[2018-10-29 07:36] LABS: ANISOCYTOSIS 1+ (0-0); BURR CELLS 1+ (0-0); EOSINOPHILS % (M) 6 % (0-7); ERYTHROBLAST% (NRBC) (M) 4 % (0-0); LYMPHOCYTES #M 8.6 10^3/ul (0.8-2.9); LYMPHOCYTES % (M) 52 % (15-51); METAMYELOCYTES #M 0.1 10^3/ul (0.0-0.0); METAMYELOCYTES %M 1 % (0-0); MONOCYTE #M 0.6 10^3/ul (0.3-0.9); MONOCYTES % (M) 4 % (0-11); MYELOCYTES #M 0.1 10^3/ul (0.0-0.0); MYELOCYTES % (M) 1 % (0-0); PLATELET ESTIMATE NORMAL; POIKILOCYTOSIS 1+ (0-0); POLYCHROMASIA 3+ (0-0); SEGMENTED NEUTROPHILS (M) % 36 % (39-77); SICKLE CELL 1+ (0-0); SMUDGE%M 18 % (0-0); TARGET CELLS 1+ (0-0)
[2018-10-29] MEDS: FOLIC ACID 1 MG TAB PO (08:40)
[2018-10-29] MEDS: ENOXAPARIN 40 MG/0.4 ML SYG SC (08:44)
[2018-10-29] MEDS: LORAZEPAM 2 MG INJ IV (11:40)
[2018-10-29] MEDS: HYDROmorphONE 2 MG/ML SYG IV ×3 (13:19→21:26)
[2018-10-29] MEDS: DIPHENHYDRAMINE 50 MG INJ IV ×3 (13:19→22:20)
[2018-10-30] MEDS: HYDROmorphONE 2 MG/ML SYG IV ×6 (01:25→21:28)
[2018-10-30] MEDS: DIPHENHYDRAMINE 50 MG INJ IV ×4 (02:15→20:16)
[2018-10-30] MEDS: SOD CHLORIDE 0.9% 1,000 ML IV ×5 (04:37→21:16)
[2018-10-30] MEDS: FOLIC ACID 1 MG TAB PO (09:00)
[2018-10-30] MEDS: ENOXAPARIN 40 MG/0.4 ML SYG SC (09:00)
[2018-10-30] MEDS: HYDROXYUREA 500 MG CAP PO ×2 (09:22→20:19)
[2018-10-30] MEDS ORDERED: ALPRAZOLAM 0.25 MG TAB PO (11:00)
[2018-10-30 11:51] LABS: MAGNESIUM 1.5 mg/dl (1.7-2.5)
[2018-10-30] MEDS: MAGNESIUM SULFATE 2 GM/50 ML 50 ML IVPB (21:16)
[2018-10-31] MEDS: HYDROmorphONE 2 MG/ML SYG IV ×3 (02:05→11:16)
[2018-10-31] MEDS: DIPHENHYDRAMINE 50 MG INJ IV ×2 (02:05→08:03)
[2018-10-31 06:23] LABS: ADD MAN DIFF? NO
[2018-10-31 06:25] LABS: BASOPHIL # 0.1 10^3/ul (0.0-0.1); BASOPHILS % 0.8 % (0.0-2.0); EOSINOPHILS # 0.7 10^3/ul (0.0-0.5); EOSINOPHILS % 7.7 % (0.0-7.0); HEMATOCRIT 21.8 % (37.0-47.0); HEMOGLOBIN 7.4 g/dl (12.0-16.0); LYMPHOCYTES # 2.8 10^3/ul (0.8-2.9); LYMPHOCYTES % 28.9 % (15.0-51.0); MEAN CORPUSCULAR HEMOGLOBIN 28.2 pg (29.0-33.0); MEAN CORPUSCULAR HGB CONC 33.9 g/dl (32.0-37.0); MEAN CORPUSCULAR VOLUME 83.2 fl (82.0-101.0); MEAN PLATELET VOLUME 10.1 fl (7.4-10.4); MONOCYTE # 1.4 10^3/ul (0.3-0.9); MONOCYTES % 14.8 % (0.0-11.0); NEUTROPHIL # 4.3 10^3/ul (1.6-7.5); NEUTROPHILS % 45.5 % (39.0-77.0); NUCLEATED RED BLOOD CELLS # 0.8 10^3/ul (0.0-0.0); NUCLEATED RED BLOOD CELLS% 8.3 /100WBC (0.0-0.0); PLATELET COUNT 532 10^3/UL (140-415); RED BLOOD COUNT 2.62 10^6/ul (4.20-5.40); RED CELL DISTRIBUTION WIDTH 18.7 % (11.5-14.5)
[2018-10-31 06:25] LABS: WHITE BLOOD COUNT 9.5 10^3/ul (4.8-10.8)
[2018-10-31 06:52] LABS: ANION GAP 8 (5-13); BLOOD UREA NITROGEN 3 mg/dl (7-20); CALCIUM 8.5 mg/dl (8.4-10.2); CARBON DIOXIDE 23 mmol/L (21-31); CHLORIDE 110 mmol/L (97-110); CREATININE 0.33 mg/dl (0.44-1.00); Estimated GFR > 60 mL/min (>60); GLUCOSE 77 mg/dl (70-220); POTASSIUM 3.5 mmol/L (3.5-5.1); SODIUM 141 mmol/L (135-144)
[2018-10-31] MEDS: LORAZEPAM 0.5 MG TAB PO (06:59)
[2018-10-31] MEDS: SOD CHLORIDE 0.9% 1,000 ML IV ×4 (07:01→22:12)
[2018-10-31] MEDS: FOLIC ACID 1 MG TAB PO (08:03)
[2018-10-31] MEDS: HYDROXYUREA 500 MG CAP PO ×2 (08:05→21:33)
[2018-10-31] MEDS: ENOXAPARIN 40 MG/0.4 ML SYG SC (08:05)
[2018-10-31] MEDS ORDERED: GUAIFENESIN/DM 5ML CUP PO (14:00)
[2018-10-31] MEDS: HYDROmorphONE 1 MG/ML SYG IV ×3 (15:40→23:48)
[2018-10-31] MEDS: LEVOFLOXACIN 500 MG TAB PO (15:40)
[2018-10-31] MEDS: DIPHENHYDRAMINE 25 MG CAP PO ×2 (15:40→21:30)
[2018-10-31 16:34] LABS: IMMEDIATE SPIN CROSSMATCH 1 1
[2018-11-01] MEDS: SOD CHLORIDE 0.9% 1,000 ML IV ×3 (03:45→11:52)
[2018-11-01] MEDS: HYDROmorphONE 1 MG/ML SYG IV ×4 (03:47→15:44)
[2018-11-01] MEDS: DIPHENHYDRAMINE 25 MG CAP PO ×3 (03:47→15:43)
[2018-11-01 05:25] LABS: HEMOGLOBIN 9.1 g/dl (12.0-16.0)
[2018-11-01 05:25] LABS: WHITE BLOOD COUNT 9.4 10^3/ul (4.8-10.8)
[2018-11-01 05:43] LABS: ANION GAP 12 (5-13); BLOOD UREA NITROGEN 6 mg/dl (7-20); CARBON DIOXIDE 22 mmol/L (21-31); CHLORIDE 110 mmol/L (97-110); CREATININE 0.33 mg/dl (0.44-1.00); Estimated GFR > 60 mL/min (>60); GLUCOSE 88 mg/dl (70-220); POTASSIUM 3.7 mmol/L (3.5-5.1); SODIUM 144 mmol/L (135-144)
[2018-11-01 05:44] LABS: ABNORMAL IP MESSAGE 1; HEMATOCRIT 26.2 % (37.0-47.0); MEAN CORPUSCULAR HEMOGLOBIN 28.8 pg (29.0-33.0); MEAN CORPUSCULAR HGB CONC 34.7 g/dl (32.0-37.0); MEAN CORPUSCULAR VOLUME 82.9 fl (82.0-101.0); MEAN PLATELET VOLUME 10.3 fl (7.4-10.4); PLATELET COUNT 526 10^3/UL (140-415); RED BLOOD COUNT 3.16 10^6/ul (4.20-5.40); RED CELL DISTRIBUTION WIDTH 17.5 % (11.5-14.5)
[2018-11-01 05:51] LABS: POSITIVE DIFF @See below
[2018-11-01] MEDS: LEVOFLOXACIN 500 MG TAB PO (06:02)
[2018-11-01 06:30] LABS: BASOPHIL # 0.1 10^3/ul (0.0-0.1); BASOPHILS % 0.9 % (0.0-2.0); EOSINOPHILS # 0.6 10^3/ul (0.0-0.5); EOSINOPHILS % 6.4 % (0.0-7.0); LYMPHOCYTES # 2.5 10^3/ul (0.8-2.9); LYMPHOCYTES % 26.1 % (15.0-51.0); MONOCYTE # 1.5 10^3/ul (0.3-0.9); MONOCYTES % 16.1 % (0.0-11.0); NEUTROPHIL # 4.6 10^3/ul (1.6-7.5); NEUTROPHILS % 49.3 % (39.0-77.0); NUCLEATED RED BLOOD CELLS # 0.8 10^3/ul (0.0-0.0)
[2018-11-01 06:31] LABS: ADD MAN DIFF? NO
[2018-11-01] MEDS: FOLIC ACID 1 MG TAB PO (08:50)
[2018-11-01] MEDS: HYDROXYUREA 500 MG CAP PO (08:52)
[2018-11-01] MEDS: ENOXAPARIN 40 MG/0.4 ML SYG SC (09:00)
[2018-11-01] MEDS: HEPARIN (100 UNITS/ML) 5 ML SYG CATHETER (16:37)
== END 2018-11-01 17:00 | disposition home or self-care (01) | DRG 812 ==
LOC: E/R 19:05 → 2NE 22:45
PROC: 30233N1 Transfusion of Nonautologous Red Blood Cells into Peripheral Vein, Percutaneous Approach (ICD-10-PCS; principal; 2018-10-31)
DX: D57.00 Hb-SS disease with crisis, unspecified (principal); J06.9 Acute upper respiratory infection, unspecified
CPT/HCPCS: 36415; 36430; 71045; 80048; 80053; 83735; 84703; 85025; 85045; 86850; 86900; 86901; 86920; 86945; 96374; 96375; 96376; 99285-25

== ENCOUNTER 2018-11-30 09:21 | Emergency (ER) | payer OTHER ==
[2018-11-30] MEDS: HYDROmorphONE 1 MG/ML SYG IV (10:11)
[2018-11-30] MEDS: DIPHENHYDRAMINE 50 MG INJ IV ×2 (10:11→11:13)
[2018-11-30] MEDS: ONDANSETRON 4 MG INJ IV (10:11)
[2018-11-30] MEDS: SOD CHLORIDE 0.9% 1,000 ML IV (10:11)
[2018-11-30 10:21] LABS: ADD MAN DIFF? NO
[2018-11-30 10:24] LABS: BASOPHIL # 0.2 10^3/ul (0.0-0.1); BASOPHILS % 1.7 % (0.0-2.0); EOSINOPHILS # 1.1 10^3/ul (0.0-0.5); EOSINOPHILS % 8.7 % (0.0-7.0); HEMATOCRIT 26.7 % (37.0-47.0); HEMOGLOBIN 9.2 g/dl (12.0-16.0); MEAN CORPUSCULAR HEMOGLOBIN 28.9 pg (29.0-33.0); MEAN CORPUSCULAR HGB CONC 34.5 g/dl (32.0-37.0); MEAN PLATELET VOLUME 9.6 fl (7.4-10.4); MONOCYTE # 1.4 10^3/ul (0.3-0.9); MONOCYTES % 11.5 % (0.0-11.0); NEUTROPHIL # 6.7 10^3/ul (1.6-7.5); NEUTROPHILS % 53.4 % (39.0-77.0); NUCLEATED RED BLOOD CELLS # 0.1 10^3/ul (0.0-0.0); NUCLEATED RED BLOOD CELLS% 0.8 /100WBC (0.0-0.0); PLATELET COUNT 488 10^3/UL (140-415); RED BLOOD COUNT 3.18 10^6/ul (4.20-5.40); RETICULOCYTE COUNT % 8.5 % (0.5-1.5); RETICULOCYTE RBC 3.18
[2018-11-30 10:24] LABS: WHITE BLOOD COUNT 12.5 10^3/ul (4.8-10.8)
[2018-11-30 10:45] LABS: ALANINE AMINOTRANSFERASE 20 IU/L (13-69); ALBUMIN 4.9 g/dl (3.3-4.9); ALBUMIN/GLOBULIN RATIO 1.28; ALKALINE PHOSPHATASE 72 IU/L (42-121); ANION GAP 12 (5-13); ASPARTATE AMINO TRANSFERASE 49 IU/L (15-46); BILIRUBIN,INDIRECT 2.4 mg/dl (0-1.1); BILIRUBIN,TOTAL 2.4 mg/dl (0.2-1.3); BLOOD UREA NITROGEN 13 mg/dl (7-20); CALCIUM 9.5 mg/dl (8.4-10.2); CARBON DIOXIDE 23 mmol/L (21-31); CHLORIDE 108 mmol/L (97-110); CREATININE 0.42 mg/dl (0.44-1.00); Estimated GFR > 60 mL/min (>60); GLUCOSE 97 mg/dl (70-220); POTASSIUM 3.4 mmol/L (3.5-5.1); SODIUM 143 mmol/L (135-144); TOTAL PROTEIN 8.7 g/dl (6.1-8.1)
[2018-11-30] MEDS: HYDROmorphONE 2 MG/ML SYG IV ×2 (11:12→12:30)
[2018-11-30] MEDS: HEPARIN (100 UNITS/ML) 5 ML SYG CATHETER (11:30)
== END 2018-11-30 13:31 | disposition home or self-care (01) ==
LOC: E/R 09:21
DX: D57.00 Hb-SS disease with crisis, unspecified (principal); R07.9 Chest pain, unspecified
CPT/HCPCS: 71045; 80053; 81025; 85025; 85045; 93005; 96374; 96375; 96376; 99285-25

== ENCOUNTER 2018-12-03 06:37 | Emergency (ER) | payer OTHER ==
[2018-12-03] MEDS: HYDROCODONE/APAP (10/325) TAB PO (07:03)
[2018-12-03] MEDS: ONDANSETRON (ODT) 4 MG TAB ODT (07:03)
== END 2018-12-03 07:45 | disposition home or self-care (01) ==
LOC: E/R 06:37
DX: M54.9 Dorsalgia, unspecified (principal); D57.00 Hb-SS disease with crisis, unspecified
CPT/HCPCS: 71045; 93005; 99284-25

== ENCOUNTER 2018-12-23 14:51 | Emergency (ER) | payer OTHER ==
[2018-12-23] MEDS ORDERED: METOCLOPRAMIDE 10 MG INJ IV (15:33)
[2018-12-23] MEDS ORDERED: ONDANSETRON (ODT) 4 MG TAB ODT (15:53)
[2018-12-23] MEDS ORDERED: DIPHENHYDRAMINE 50 MG INJ IV (16:00)
[2018-12-23] MEDS: ONDANSETRON (ODT) 4 MG TAB ODT (16:02)
[2018-12-23] MEDS: HYDROmorphONE 1 MG/ML SYG IV (16:03)
[2018-12-23] MEDS: HYDROmorphONE 2 MG/ML SYG IM (16:03)
[2018-12-23] MEDS: DIPHENHYDRAMINE 50 MG INJ IM (16:38)
== END 2018-12-23 18:23 | disposition home or self-care (01) ==
LOC: E/R 14:51
DX: D57.00 Hb-SS disease with crisis, unspecified (principal)
CPT/HCPCS: 96372; 99284-25

== ENCOUNTER 2019-01-01 23:23 | Inpatient (IN) | payer OTHER ==
[2019-01-02 02:16] LABS: WHITE BLOOD COUNT 12.1 10^3/ul (4.8-10.8)
[2019-01-02 02:16] LABS: HEMATOCRIT 23.6 % (37.0-47.0); MEAN CORPUSCULAR HEMOGLOBIN 27.4 pg (29.0-33.0); MEAN CORPUSCULAR HGB CONC 33.9 g/dl (32.0-37.0); MEAN CORPUSCULAR VOLUME 80.8 fl (82.0-101.0); NUCLEATED RED BLOOD CELLS% 12.1 /100WBC (0.0-0.0); PLATELET COUNT 740 10^3/UL (140-415); RED BLOOD COUNT 2.92 10^6/ul (4.20-5.40); RETICULOCYTE COUNT # 0.279 X10^6 (0.020-0.110); RETICULOCYTE COUNT % 9.6 % (0.5-1.5); RETICULOCYTE RBC 2.92
[2019-01-02 02:17] LABS: POSITIVE DIFF @See below
[2019-01-02 02:18] LABS: ADD MAN DIFF? YES
[2019-01-02] MEDS: HYDROmorphONE 1 MG/ML SYG IV ×10 (02:19→23:21)
[2019-01-02] MEDS: DIPHENHYDRAMINE 50 MG INJ IV ×2 (02:20→04:13)
[2019-01-02] MEDS: ONDANSETRON 4 MG INJ IV (02:20)
[2019-01-02] MEDS: SOD CHLORIDE 0.9% 1,000 ML IV ×4 (02:20→20:28)
[2019-01-02 02:45] LABS: ANION GAP 13 (5-13); BLOOD UREA NITROGEN 10 mg/dl (7-20); CALCIUM 9.6 mg/dl (8.4-10.2); CARBON DIOXIDE 22 mmol/L (21-31); CHLORIDE 106 mmol/L (97-110); CREATININE 0.44 mg/dl (0.44-1.00); Estimated GFR > 60 mL/min (>60); GLUCOSE 94 mg/dl (70-220); POTASSIUM 3.7 mmol/L (3.5-5.1); SODIUM 141 mmol/L (135-144)
[2019-01-02 03:15] LABS: ANISOCYTOSIS 1+ (0-0); BAND NEUTROPHILS #M 0.2 10^3/ul (0.0-0.6); BAND NEUTROPHILS % (M) 2 % (0-4); BASOPHIL #M 0.6 10^3/ul (0.0-0.0); BASOPHILS % (M) 5 % (0-2); EOSINOPHILS % (M) 14 % (0-7); ERYTHROBLAST% (NRBC) (M) 33 % (0-0); GIANT THROMBO% (M) 1 % (0-0); HYPOCHROMASIA 1+ (0-0); LYMPHOCYTES #M 3.1 10^3/ul (0.8-2.9); LYMPHOCYTES % (M) 26 % (15-51); METAMYELOCYTES #M 0.6 10^3/ul (0.0-0.0); METAMYELOCYTES %M 5 % (0-0); MONOCYTE #M 0.4 10^3/ul (0.3-0.9); MONOCYTES % (M) 4 % (0-11); PLATELET ESTIMATE INCREASED; POIKILOCYTOSIS 1+ (0-0); POLYCHROMASIA 3+ (0-0); REACTIVE LYMPHOCYTES #M 0.2 10^3/ul (0.0-0.0); REACTIVE LYMPHOCYTES% (M) 2 % (0-0); SEG NEUT #M 5.1 10^3/ul (1.6-7.5); SEGMENTED NEUTROPHILS (M) % 42 % (39-77); SICKLE CELL 1+ (0-0); SMUDGE%M 8 % (0-0); TARGET CELLS 1+ (0-0)
[2019-01-02] MEDS ORDERED: ALBUTEROL HFA 8 GM INHALER INH (05:00)
[2019-01-02] MEDS ORDERED: ACETAMINOPHEN 325 MG TAB PO (05:30)
[2019-01-02] MEDS ORDERED: NACL 0.9% 3 ML SYG IV (05:30)
[2019-01-02] MEDS ORDERED: DIPHENHYDRAMINE 50 MG CAP PO (06:00)
[2019-01-02] MEDS: DIPHENHYDRAMINE 50 MG INJ IM ×4 (06:46→20:29)
[2019-01-02] MEDS: HYDROCODONE/APAP (5/325) TAB PO ×3 (07:37→21:39)
[2019-01-02] MEDS: HYDROXYUREA 500 MG CAP PO ×3 (09:00→21:00)
[2019-01-02] MEDS: ENOXAPARIN 40 MG/0.4 ML SYG SC ×2 (09:00→10:53)
[2019-01-02] MEDS: FOLIC ACID 1 MG TAB PO (10:54)
[2019-01-02] MEDS: CEFTRIAXONE 1 GM/50 ML (PMX) 50 ML IVPB (10:57)
[2019-01-02] MEDS: AZITHROMYCIN 500MG/NS (PMX) 250 ML IVPB (10:58)
[2019-01-02] MEDS ORDERED: HYDROmorphONE 1 MG/ML SYG IV ×2 (16:30→20:00)
[2019-01-02] MEDS ORDERED: KETOROLAC 30 MG INJ IV (17:30)
[2019-01-02] MEDS ORDERED: KETOROLAC 15 MG INJ IV (18:00)
[2019-01-02] MEDS: KETOROLAC 15 MG INJ IV (18:43)
[2019-01-03] MEDS: KETOROLAC 15 MG INJ IV ×4 (00:01→18:24)
[2019-01-03] MEDS: HYDROmorphONE 1 MG/ML SYG IV ×8 (02:25→23:18)
[2019-01-03] MEDS: SOD CHLORIDE 0.9% 1,000 ML IV ×3 (03:09→19:35)
[2019-01-03] MEDS: DIPHENHYDRAMINE 50 MG INJ IM ×3 (05:20→20:17)
[2019-01-03 05:28] LABS: ADD MAN DIFF? NO
[2019-01-03 05:38] LABS: BASOPHIL # 0.2 10^3/ul (0.0-0.1); BASOPHILS % 1.4 % (0.0-2.0); EOSINOPHILS # 0.7 10^3/ul (0.0-0.5); EOSINOPHILS % 6.7 % (0.0-7.0); HEMATOCRIT 23.6 % (37.0-47.0); HEMOGLOBIN 7.8 g/dl (12.0-16.0); LYMPHOCYTES # 3.2 10^3/ul (0.8-2.9); LYMPHOCYTES % 29.2 % (15.0-51.0); MEAN CORPUSCULAR HEMOGLOBIN 27.6 pg (29.0-33.0); MEAN CORPUSCULAR HGB CONC 33.1 g/dl (32.0-37.0); MEAN CORPUSCULAR VOLUME 83.4 fl (82.0-101.0); MEAN PLATELET VOLUME 9.6 fl (7.4-10.4); MONOCYTE # 1.3 10^3/ul (0.3-0.9); MONOCYTES % 11.4 % (0.0-11.0); NEUTROPHIL # 5.5 10^3/ul (1.6-7.5); NEUTROPHILS % 50.3 % (39.0-77.0); NUCLEATED RED BLOOD CELLS # 0.8 10^3/ul (0.0-0.0); NUCLEATED RED BLOOD CELLS% 6.9 /100WBC (0.0-0.0); PLATELET COUNT 680 10^3/UL (140-415); RED BLOOD COUNT 2.83 10^6/ul (4.20-5.40); RED CELL DISTRIBUTION WIDTH 19.1 % (11.5-14.5)
[2019-01-03 06:14] LABS: ALANINE AMINOTRANSFERASE 14 IU/L (13-69); ALBUMIN 3.9 g/dl (3.3-4.9); ALBUMIN/GLOBULIN RATIO 1.08; ALKALINE PHOSPHATASE 77 IU/L (42-121); ANION GAP 10 (5-13); ASPARTATE AMINO TRANSFERASE 32 IU/L (15-46); BILIRUBIN,INDIRECT 1.1 mg/dl (0-1.1); BILIRUBIN,TOTAL 1.1 mg/dl (0.2-1.3); BLOOD UREA NITROGEN 5 mg/dl (7-20); CALCIUM 8.8 mg/dl (8.4-10.2); CARBON DIOXIDE 21 mmol/L (21-31); CHLORIDE 112 mmol/L (97-110); CREATININE 0.42 mg/dl (0.44-1.00); Estimated GFR > 60 mL/min (>60); GLUCOSE 79 mg/dl (70-220); MAGNESIUM 1.8 mg/dl (1.7-2.5); POTASSIUM 4.3 mmol/L (3.5-5.1); SODIUM 143 mmol/L (135-144); TOTAL PROTEIN 7.5 g/dl (6.1-8.1)
[2019-01-03] MEDS: ENOXAPARIN 40 MG/0.4 ML SYG SC (09:00)
[2019-01-03] MEDS: HYDROXYUREA 500 MG CAP PO ×2 (09:00→21:00)
[2019-01-03] MEDS: FOLIC ACID 1 MG TAB PO (09:19)
[2019-01-03] MEDS: HYDROCODONE/APAP (5/325) TAB PO ×2 (09:24→21:49)
[2019-01-03] MEDS: CEFTRIAXONE 1 GM/50 ML (PMX) 50 ML IVPB (10:17)
[2019-01-03] MEDS: AZITHROMYCIN 500MG/NS (PMX) 250 ML IVPB (12:17)
[2019-01-03] MEDS: LORAZEPAM 2 MG INJ IV ×2 (12:57→21:43)
[2019-01-04] MEDS: KETOROLAC 15 MG INJ IV ×5 (00:32→23:17)
[2019-01-04] MEDS: SOD CHLORIDE 0.9% 1,000 ML IV ×4 (02:18→17:08)
[2019-01-04] MEDS: HYDROmorphONE 1 MG/ML SYG IV ×8 (02:29→23:21)
[2019-01-04] MEDS: DIPHENHYDRAMINE 50 MG INJ IV ×4 (02:34→20:27)
[2019-01-04] MEDS: HYDROCODONE/APAP (5/325) TAB PO ×3 (03:54→19:46)
[2019-01-04] MEDS: HYDROXYUREA 500 MG CAP PO ×2 (08:17→21:00)
[2019-01-04] MEDS: FOLIC ACID 1 MG TAB PO (08:17)
[2019-01-04] MEDS: ENOXAPARIN 40 MG/0.4 ML SYG SC (08:48)
[2019-01-04] MEDS: LORAZEPAM 2 MG INJ IV ×2 (08:49→17:03)
[2019-01-04] MEDS: CEFTRIAXONE 1 GM/50 ML (PMX) 50 ML IVPB (09:54)
[2019-01-04] MEDS: AZITHROMYCIN 500MG/NS (PMX) 250 ML IVPB (09:54)
[2019-01-05] MEDS: SOD CHLORIDE 0.9% 1,000 ML IV ×5 (00:20→22:52)
[2019-01-05] MEDS: LORAZEPAM 2 MG INJ IV ×2 (01:05→14:54)
[2019-01-05] MEDS: HYDROCODONE/APAP (10/325) TAB PO ×4 (01:40→23:04)
[2019-01-05] MEDS: HYDROmorphONE 1 MG/ML SYG IV ×9 (02:23→22:34)
[2019-01-05] MEDS: DIPHENHYDRAMINE 50 MG INJ IV ×4 (02:25→19:31)
[2019-01-05] MEDS: KETOROLAC 15 MG INJ IV ×2 (05:16→12:06)
[2019-01-05 05:21] LABS: ADD MAN DIFF? NO
[2019-01-05 05:28] LABS: BASOPHIL # 0.1 10^3/ul (0.0-0.1); BASOPHILS % 1.1 % (0.0-2.0); EOSINOPHILS # 0.8 10^3/ul (0.0-0.5); HEMATOCRIT 22.6 % (37.0-47.0); HEMOGLOBIN 7.5 g/dl (12.0-16.0); LYMPHOCYTES # 2.5 10^3/ul (0.8-2.9); LYMPHOCYTES % 24.1 % (15.0-51.0); MEAN CORPUSCULAR HEMOGLOBIN 27.5 pg (29.0-33.0); MEAN CORPUSCULAR HGB CONC 33.2 g/dl (32.0-37.0); MEAN CORPUSCULAR VOLUME 82.8 fl (82.0-101.0); MEAN PLATELET VOLUME 9.5 fl (7.4-10.4); MONOCYTES % 9.3 % (0.0-11.0); NEUTROPHIL # 5.8 10^3/ul (1.6-7.5); NEUTROPHILS % 56.8 % (39.0-77.0); NUCLEATED RED BLOOD CELLS # 0.3 10^3/ul (0.0-0.0); NUCLEATED RED BLOOD CELLS% 2.7 /100WBC (0.0-0.0); PLATELET COUNT 646 10^3/UL (140-415); RED BLOOD COUNT 2.73 10^6/ul (4.20-5.40); RED CELL DISTRIBUTION WIDTH 17.7 % (11.5-14.5)
[2019-01-05 05:28] LABS: WHITE BLOOD COUNT 10.2 10^3/ul (4.8-10.8)
[2019-01-05 05:48] LABS: ANION GAP 12 (5-13); BLOOD UREA NITROGEN 7 mg/dl (7-20); CALCIUM 8.7 mg/dl (8.4-10.2); CARBON DIOXIDE 23 mmol/L (21-31); CHLORIDE 108 mmol/L (97-110); CREATININE 0.36 mg/dl (0.44-1.00); Estimated GFR > 60 mL/min (>60); GLUCOSE 85 mg/dl (70-220); POTASSIUM 3.5 mmol/L (3.5-5.1); SODIUM 143 mmol/L (135-144)
[2019-01-05] MEDS: HYDROXYUREA 500 MG CAP PO ×2 (08:58→21:00)
[2019-01-05] MEDS: ENOXAPARIN 40 MG/0.4 ML SYG SC (08:58)
[2019-01-05] MEDS: CEFTRIAXONE 1 GM/50 ML (PMX) 50 ML IVPB (09:34)
[2019-01-05] MEDS: FOLIC ACID 1 MG TAB PO (09:34)
[2019-01-05] MEDS: AZITHROMYCIN 500MG/NS (PMX) 250 ML IVPB (11:05)
[2019-01-06] MEDS: LORAZEPAM 2 MG INJ IV ×3 (00:04→18:58)
[2019-01-06] MEDS: DIPHENHYDRAMINE 50 MG INJ IV ×4 (01:16→18:44)
[2019-01-06] MEDS: HYDROmorphONE 1 MG/ML SYG IV ×4 (01:16→10:02)
[2019-01-06] MEDS: SOD CHLORIDE 0.9% 1,000 ML IV ×5 (04:23→22:46)
[2019-01-06 05:01] LABS: ADD MAN DIFF? NO
[2019-01-06 05:06] LABS: BASOPHIL # 0.1 10^3/ul (0.0-0.1); BASOPHILS % 1.3 % (0.0-2.0); EOSINOPHILS # 0.9 10^3/ul (0.0-0.5); HEMATOCRIT 22.7 % (37.0-47.0); HEMOGLOBIN 7.7 g/dl (12.0-16.0); LYMPHOCYTES # 2.5 10^3/ul (0.8-2.9); LYMPHOCYTES % 22.9 % (15.0-51.0); MEAN CORPUSCULAR HEMOGLOBIN 27.7 pg (29.0-33.0); MEAN CORPUSCULAR HGB CONC 33.9 g/dl (32.0-37.0); MEAN CORPUSCULAR VOLUME 81.7 fl (82.0-101.0); MEAN PLATELET VOLUME 9.2 fl (7.4-10.4); MONOCYTE # 1.1 10^3/ul (0.3-0.9); MONOCYTES % 10.3 % (0.0-11.0); NEUTROPHIL # 6.3 10^3/ul (1.6-7.5); NUCLEATED RED BLOOD CELLS # 0.2 10^3/ul (0.0-0.0); NUCLEATED RED BLOOD CELLS% 1.5 /100WBC (0.0-0.0); PLATELET COUNT 650 10^3/UL (140-415); RED BLOOD COUNT 2.78 10^6/ul (4.20-5.40); RED CELL DISTRIBUTION WIDTH 17.6 % (11.5-14.5)
[2019-01-06] MEDS: HYDROCODONE/APAP (10/325) TAB PO ×3 (05:09→20:11)
[2019-01-06 05:27] LABS: ANION GAP 12 (5-13); BLOOD UREA NITROGEN 4 mg/dl (7-20); CALCIUM 8.9 mg/dl (8.4-10.2); CARBON DIOXIDE 20 mmol/L (21-31); CHLORIDE 111 mmol/L (97-110); CREATININE 0.34 mg/dl (0.44-1.00); Estimated GFR > 60 mL/min (>60); GLUCOSE 91 mg/dl (70-220); POTASSIUM 3.3 mmol/L (3.5-5.1); SODIUM 143 mmol/L (135-144)
[2019-01-06 05:46] LABS: MAGNESIUM 1.7 mg/dl (1.7-2.5)
[2019-01-06] MEDS: ENOXAPARIN 40 MG/0.4 ML SYG SC (09:00)
[2019-01-06] MEDS: FOLIC ACID 1 MG TAB PO (09:34)
[2019-01-06] MEDS: HYDROXYUREA 500 MG CAP PO ×2 (09:35→21:49)
[2019-01-06] MEDS: AZITHROMYCIN 250 MG TAB PO (09:36)
[2019-01-06] MEDS: CEFTRIAXONE 1 GM/50 ML (PMX) 50 ML IVPB (09:56)
[2019-01-06] MEDS ORDERED: HYDROmorphONE 1 MG/ML SYG IV (12:00)
[2019-01-06] MEDS: HYDROmorphONE 2 MG/ML SYG IV ×4 (12:50→21:55)
[2019-01-06] MEDS: morphine (ER) 15 MG TAB PO (13:23)
[2019-01-07] MEDS: DIPHENHYDRAMINE 50 MG INJ IV ×4 (00:51→18:53)
[2019-01-07] MEDS: HYDROmorphONE 2 MG/ML SYG IV ×4 (00:51→09:53)
[2019-01-07] MEDS: HYDROCODONE/APAP (10/325) TAB PO ×2 (05:31→17:35)
[2019-01-07] MEDS: SOD CHLORIDE 0.9% 1,000 ML IV ×3 (05:31→20:10)
[2019-01-07] MEDS: ENOXAPARIN 40 MG/0.4 ML SYG SC (09:00)
[2019-01-07] MEDS: morphine (ER) 15 MG TAB PO (09:01)
[2019-01-07] MEDS: HYDROXYUREA 500 MG CAP PO ×2 (09:52→20:12)
[2019-01-07] MEDS: AZITHROMYCIN 250 MG TAB PO (09:52)
[2019-01-07] MEDS: FOLIC ACID 1 MG TAB PO (09:53)
[2019-01-07] MEDS: CEFTRIAXONE 1 GM/50 ML (PMX) 50 ML IVPB (09:57)
[2019-01-07] MEDS: LORAZEPAM 2 MG INJ IV ×2 (10:15→18:32)
[2019-01-07] MEDS: POTASSIUM CHLORIDE (SR) 20 MEQ TAB PO (10:16)
[2019-01-07] MEDS: HYDROmorphONE 1 MG/ML SYG IV ×4 (12:49→21:49)
[2019-01-07] MEDS: POTASSIUM CHLORIDE 20 MEQ POWDER FOR ORAL SOLN PO (13:00)
[2019-01-07] MEDS: ONDANSETRON 4 MG INJ IV (19:36)
[2019-01-08] MEDS: DIPHENHYDRAMINE 50 MG INJ IV ×4 (00:59→20:28)
[2019-01-08] MEDS: HYDROmorphONE 1 MG/ML SYG IV ×8 (01:00→23:22)
[2019-01-08] MEDS: LORAZEPAM 2 MG INJ IV ×3 (02:07→18:44)
[2019-01-08] MEDS: SOD CHLORIDE 0.9% 1,000 ML IV ×2 (03:19→09:30)
[2019-01-08] MEDS: ENOXAPARIN 40 MG/0.4 ML SYG SC (09:00)
[2019-01-08] MEDS: AZITHROMYCIN 250 MG TAB PO (09:26)
[2019-01-08] MEDS: HYDROXYUREA 500 MG CAP PO ×2 (09:27→20:29)
[2019-01-08] MEDS: FOLIC ACID 1 MG TAB PO (09:28)
[2019-01-08] MEDS: CEFTRIAXONE 1 GM/50 ML (PMX) 50 ML IVPB (09:29)
[2019-01-08] MEDS: morphine (ER) 15 MG TAB PO (09:29)
[2019-01-08] MEDS ORDERED: ALTEPLASE (CATHFLO) 2 MG INJ CATHETER (14:00)
[2019-01-08 20:51] LABS: ADD MAN DIFF? NO
[2019-01-08 20:54] LABS: BASOPHIL # 0.2 10^3/ul (0.0-0.1); BASOPHILS % 1.5 % (0.0-2.0); EOSINOPHILS # 0.8 10^3/ul (0.0-0.5); EOSINOPHILS % 8.2 % (0.0-7.0); HEMATOCRIT 22.5 % (37.0-47.0); HEMOGLOBIN 7.8 g/dl (12.0-16.0); LYMPHOCYTES # 2.5 10^3/ul (0.8-2.9); LYMPHOCYTES % 24.7 % (15.0-51.0); MEAN CORPUSCULAR HEMOGLOBIN 27.1 pg (29.0-33.0); MEAN CORPUSCULAR HGB CONC 34.7 g/dl (32.0-37.0); MEAN CORPUSCULAR VOLUME 78.1 fl (82.0-101.0); MEAN PLATELET VOLUME 9.1 fl (7.4-10.4); MONOCYTE # 1.1 10^3/ul (0.3-0.9); MONOCYTES % 10.6 % (0.0-11.0); NEUTROPHIL # 5.5 10^3/ul (1.6-7.5); NEUTROPHILS % 54.7 % (39.0-77.0); NUCLEATED RED BLOOD CELLS # 0.2 10^3/ul (0.0-0.0); NUCLEATED RED BLOOD CELLS% 1.5 /100WBC (0.0-0.0); PLATELET COUNT 643 10^3/UL (140-415); RED BLOOD COUNT 2.88 10^6/ul (4.20-5.40); RED CELL DISTRIBUTION WIDTH 18.2 % (11.5-14.5)
[2019-01-08 21:12] LABS: ANION GAP 9 (5-13); BLOOD UREA NITROGEN 7 mg/dl (7-20); CARBON DIOXIDE 23 mmol/L (21-31); CHLORIDE 111 mmol/L (97-110); CREATININE 0.35 mg/dl (0.44-1.00); Estimated GFR > 60 mL/min (>60); GLUCOSE 88 mg/dl (70-220); POTASSIUM 3.1 mmol/L (3.5-5.1); SODIUM 143 mmol/L (135-144)
[2019-01-08 21:13] LABS: MAGNESIUM 1.6 mg/dl (1.7-2.5)
[2019-01-09] MEDS: HYDROCODONE/APAP (10/325) TAB PO ×2 (00:29→09:51)
[2019-01-09] MEDS: SOD CHLORIDE 0.9% 1,000 ML IV ×2 (00:30→08:07)
[2019-01-09] MEDS: DIPHENHYDRAMINE 50 MG INJ IV ×2 (02:28→10:19)
[2019-01-09] MEDS: HYDROmorphONE 1 MG/ML SYG IV ×2 (02:28→05:21)
[2019-01-09] MEDS: LORAZEPAM 2 MG INJ IV ×2 (05:56→14:12)
[2019-01-09] MEDS: ENOXAPARIN 40 MG/0.4 ML SYG SC (09:00)
[2019-01-09] MEDS: HYDROXYUREA 500 MG CAP PO (09:50)
[2019-01-09] MEDS: FOLIC ACID 1 MG TAB PO (09:50)
[2019-01-09] MEDS: POTASSIUM CHLORIDE (SR) 20 MEQ TAB PO ×2 (12:04→14:10)
[2019-01-09] MEDS: MAGNESIUM SULFATE 2 GM/50 ML 50 ML IVPB (12:08)
[2019-01-09] MEDS: HEPARIN (100 UNITS/ML) 5 ML SYG CATHETER (14:34)
== END 2019-01-09 14:50 | disposition home or self-care (01) | DRG 811 ==
LOC: E/R 23:23 → MS1 01-02 04:57
DX: D57.00 Hb-SS disease with crisis, unspecified (principal); J18.9 Pneumonia, unspecified organism; E83.42 Hypomagnesemia; E87.6 Hypokalemia; F17.200 Nicotine dependence, unspecified, uncomplicated; F60.3 Borderline personality disorder; G89.29 Other chronic pain
CPT/HCPCS: 71045; 80048; 80053; 83735; 85025; 85045; 96374; 96375; 96376; 99285-25

== ENCOUNTER 2019-01-14 06:52 | Inpatient (IN) | payer OTHER ==
[2019-01-14] MEDS: KETOROLAC 15 MG INJ IV (07:04)
[2019-01-14] MEDS: ONDANSETRON 4 MG INJ IV ×2 (07:16→08:32)
[2019-01-14] MEDS: SOD CHLORIDE 0.9% 1,000 ML IV ×2 (07:16→11:33)
[2019-01-14] MEDS: DIPHENHYDRAMINE 50 MG INJ IV ×2 (07:16→08:32)
[2019-01-14] MEDS: HYDROmorphONE 1 MG/ML SYG IV ×2 (07:17→20:43)
[2019-01-14 07:35] LABS: ADD MAN DIFF? NO
[2019-01-14 07:37] LABS: BASOPHIL # 0.2 10^3/ul (0.0-0.1); BASOPHILS % 1.7 % (0.0-2.0); EOSINOPHILS # 0.5 10^3/ul (0.0-0.5); EOSINOPHILS % 4.2 % (0.0-7.0); HEMATOCRIT 25.7 % (37.0-47.0); HEMOGLOBIN 8.7 g/dl (12.0-16.0); LYMPHOCYTES # 2.7 10^3/ul (0.8-2.9); MEAN CORPUSCULAR HGB CONC 33.9 g/dl (32.0-37.0); MEAN CORPUSCULAR VOLUME 79.8 fl (82.0-101.0); MONOCYTE # 1.4 10^3/ul (0.3-0.9); MONOCYTES % 11.4 % (0.0-11.0); NEUTROPHIL # 7.2 10^3/ul (1.6-7.5); NEUTROPHILS % 58.3 % (39.0-77.0); NUCLEATED RED BLOOD CELLS # 0.4 10^3/ul (0.0-0.0); NUCLEATED RED BLOOD CELLS% 3.5 /100WBC (0.0-0.0); PLATELET COUNT 754 10^3/UL (140-415); RED BLOOD COUNT 3.22 10^6/ul (4.20-5.40); RED CELL DISTRIBUTION WIDTH 20.2 % (11.5-14.5); RETICULOCYTE COUNT # 0.281 X10^6 (0.020-0.110); RETICULOCYTE COUNT % 8.7 % (0.5-1.5); RETICULOCYTE RBC 3.22
[2019-01-14 07:37] LABS: WHITE BLOOD COUNT 12.3 10^3/ul (4.8-10.8)
[2019-01-14 08:05] LABS: ANION GAP 11 (5-13); BLOOD UREA NITROGEN 11 mg/dl (7-20); CARBON DIOXIDE 22 mmol/L (21-31); CHLORIDE 108 mmol/L (97-110); CREATININE 0.39 mg/dl (0.44-1.00); Estimated GFR > 60 mL/min (>60); GLUCOSE 104 mg/dl (70-220); POTASSIUM 3.6 mmol/L (3.5-5.1); SODIUM 141 mmol/L (135-144)
[2019-01-14] MEDS: HYDROmorphONE 2 MG/ML SYG IV (08:33)
[2019-01-14] MEDS ORDERED: NACL 0.9% 3 ML SYG IV (09:30)
[2019-01-14] MEDS ORDERED: ACETAMINOPHEN 325 MG TAB PO ×2 (09:30)
[2019-01-14] MEDS ORDERED: ONDANSETRON 4 MG INJ IV ×2 (09:30)
[2019-01-14] MEDS ORDERED: BISACODYL (EC) 5 MG TAB PO (09:30)
[2019-01-14] MEDS: HYDROmorphONE 0.5 MG/0.5 ML SYG IV ×5 (10:06→22:17)
[2019-01-14] MEDS: FOLIC ACID 1 MG TAB PO (11:27)
[2019-01-14] MEDS: ENOXAPARIN 40 MG/0.4 ML SYG SC (11:28)
[2019-01-14] MEDS: HYDROCODONE/APAP (5/325) TAB PO (12:12)
[2019-01-14] MEDS: DIPHENHYDRAMINE 50 MG INJ IM ×2 (14:32→20:42)
[2019-01-14] MEDS: LORAZEPAM 2 MG INJ IV (22:31)
[2019-01-15] MEDS: HYDROmorphONE 0.5 MG/0.5 ML SYG IV ×4 (01:14→10:17)
[2019-01-15] MEDS: DIPHENHYDRAMINE 50 MG INJ IM ×4 (02:39→21:58)
[2019-01-15] MEDS: SOD CHLORIDE 0.9% 1,000 ML IV ×2 (02:43→15:41)
[2019-01-15 05:47] LABS: ADD MAN DIFF? NO
[2019-01-15 05:54] LABS: BASOPHIL # 0.2 10^3/ul (0.0-0.1); BASOPHILS % 1.1 % (0.0-2.0); EOSINOPHILS # 0.5 10^3/ul (0.0-0.5); EOSINOPHILS % 2.9 % (0.0-7.0); HEMATOCRIT 24.3 % (37.0-47.0); HEMOGLOBIN 8.2 g/dl (12.0-16.0); LYMPHOCYTES # 1.5 10^3/ul (0.8-2.9); LYMPHOCYTES % 9.3 % (15.0-51.0); MEAN CORPUSCULAR HEMOGLOBIN 27.4 pg (29.0-33.0); MEAN CORPUSCULAR HGB CONC 33.7 g/dl (32.0-37.0); MEAN CORPUSCULAR VOLUME 81.3 fl (82.0-101.0); MEAN PLATELET VOLUME 9.1 fl (7.4-10.4); MONOCYTE # 1.5 10^3/ul (0.3-0.9); MONOCYTES % 9.4 % (0.0-11.0); NEUTROPHIL # 12.1 10^3/ul (1.6-7.5); NEUTROPHILS % 75.6 % (39.0-77.0); NUCLEATED RED BLOOD CELLS # 0.6 10^3/ul (0.0-0.0); NUCLEATED RED BLOOD CELLS% 3.8 /100WBC (0.0-0.0); PLATELET COUNT 624 10^3/UL (140-415); RED BLOOD COUNT 2.99 10^6/ul (4.20-5.40); RED CELL DISTRIBUTION WIDTH 20.3 % (11.5-14.5)
[2019-01-15 06:24] LABS: ALANINE AMINOTRANSFERASE 27 IU/L (13-69); ALBUMIN 4.6 g/dl (3.3-4.9); ALBUMIN/GLOBULIN RATIO 1.21; ALKALINE PHOSPHATASE 85 IU/L (42-121); ANION GAP 13 (5-13); ASPARTATE AMINO TRANSFERASE 46 IU/L (15-46); BILIRUBIN,INDIRECT 1.2 mg/dl (0-1.1); BILIRUBIN,TOTAL 1.2 mg/dl (0.2-1.3); BLOOD UREA NITROGEN 5 mg/dl (7-20); CALCIUM 9.2 mg/dl (8.4-10.2); CARBON DIOXIDE 23 mmol/L (21-31); CHLORIDE 106 mmol/L (97-110); CREATININE 0.39 mg/dl (0.44-1.00); Estimated GFR > 60 mL/min (>60); GLUCOSE 110 mg/dl (70-220); MAGNESIUM 1.7 mg/dl (1.7-2.5); POTASSIUM 3.8 mmol/L (3.5-5.1); SODIUM 142 mmol/L (135-144); TOTAL PROTEIN 8.4 g/dl (6.1-8.1)
[2019-01-15] MEDS: LORAZEPAM 2 MG INJ IV ×3 (06:31→22:53)
[2019-01-15] MEDS ORDERED: ENOXAPARIN 60 MG/0.6 ML SYG SC (13:00)
[2019-01-15] MEDS: HYDROmorphONE 2 MG/ML SYG IV ×4 (13:14→22:34)
[2019-01-15] MEDS: APIXABAN 5 MG TABLET PO ×2 (14:32→20:44)
[2019-01-15 17:07] LABS: ADD UMIC NO; UR ASCORBIC ACID NEGATIVE (NEGATIVE); UR BILIRUBIN (Dip) NEGATIVE (NEGATIVE); UR BLOOD (Dip) NEGATIVE (NEGATIVE); UR CLARITY CLEAR (CLEAR); UR COLOR YELLOW (YELLOW); UR GLUCOSE (Dip) NEGATIVE (NEGATIVE); UR KETONES (Dip) NEGATIVE (NEGATIVE); UR LEUKOCYTE ESTERASE (Dip) NEGATIVE Leu/ul (NEGATIVE); UR NITRITE (Dip) NEGATIVE (NEGATIVE); UR SPECIFIC GRAVITY (Dip) 1.013 (1.003-1.030); UR TOTAL PROTEIN (Dip) NEGATIVE (NEGATIVE); UR UROBILINOGEN (Dip) NEGATIVE (NEGATIVE)
[2019-01-15] MEDS: HYDROCODONE/APAP (5/325) TAB PO (21:58)
[2019-01-16] MEDS: HYDROmorphONE 2 MG/ML SYG IV ×8 (01:31→22:23)
[2019-01-16] MEDS: SOD CHLORIDE 0.9% 1,000 ML IV ×3 (04:00→20:37)
[2019-01-16] MEDS: DIPHENHYDRAMINE 50 MG INJ IM ×2 (05:14→11:21)
[2019-01-16 05:35] LABS: ADD MAN DIFF? NO
[2019-01-16 05:39] LABS: WHITE BLOOD COUNT 13.3 10^3/ul (4.8-10.8)
[2019-01-16 05:39] LABS: BASOPHIL # 0.1 10^3/ul (0.0-0.1); BASOPHILS % 0.8 % (0.0-2.0); EOSINOPHILS # 0.4 10^3/ul (0.0-0.5); EOSINOPHILS % 2.8 % (0.0-7.0); HEMATOCRIT 24.5 % (37.0-47.0); HEMOGLOBIN 8.3 g/dl (12.0-16.0); LYMPHOCYTES # 1.6 10^3/ul (0.8-2.9); LYMPHOCYTES % 11.6 % (15.0-51.0); MEAN CORPUSCULAR HEMOGLOBIN 27.4 pg (29.0-33.0); MEAN CORPUSCULAR HGB CONC 33.9 g/dl (32.0-37.0); MEAN CORPUSCULAR VOLUME 80.9 fl (82.0-101.0); MEAN PLATELET VOLUME 9.3 fl (7.4-10.4); MONOCYTE # 1.2 10^3/ul (0.3-0.9); NEUTROPHIL # 9.9 10^3/ul (1.6-7.5); NEUTROPHILS % 74.5 % (39.0-77.0); NUCLEATED RED BLOOD CELLS # 0.6 10^3/ul (0.0-0.0); NUCLEATED RED BLOOD CELLS% 4.5 /100WBC (0.0-0.0); PLATELET COUNT 628 10^3/UL (140-415); RED BLOOD COUNT 3.03 10^6/ul (4.20-5.40); RED CELL DISTRIBUTION WIDTH 20.4 % (11.5-14.5)
[2019-01-16 06:34] LABS: ANION GAP 13 (5-13); BLOOD UREA NITROGEN 5 mg/dl (7-20); CALCIUM 9.3 mg/dl (8.4-10.2); CARBON DIOXIDE 22 mmol/L (21-31); CHLORIDE 107 mmol/L (97-110); CREATININE 0.38 mg/dl (0.44-1.00); Estimated GFR > 60 mL/min (>60); GLUCOSE 90 mg/dl (70-220); POTASSIUM 3.4 mmol/L (3.5-5.1); SODIUM 142 mmol/L (135-144)
[2019-01-16] MEDS: LORAZEPAM 2 MG INJ IV ×2 (08:19→20:28)
[2019-01-16] MEDS: APIXABAN 5 MG TABLET PO ×2 (08:22→20:28)
[2019-01-16] MEDS: FOLIC ACID 1 MG TAB PO (08:23)
[2019-01-16] MEDS: POTASSIUM CHLORIDE (SR) 20 MEQ TAB PO (08:43)
[2019-01-16] MEDS: HYDROCODONE/APAP (5/325) TAB PO ×2 (09:25→23:16)
[2019-01-16] MEDS: DIPHENHYDRAMINE 50 MG INJ IV ×2 (17:30→23:16)
[2019-01-16] MEDS: LEVOFLOXACIN 500MG/D5W (PMX) 100 ML IVPB (17:30)
[2019-01-16] MEDS: POTASSIUM CHLORIDE 20 MEQ POWDER FOR ORAL SOLN PO (20:29)
[2019-01-17] MEDS: HYDROmorphONE 2 MG/ML SYG IV ×8 (01:23→22:48)
[2019-01-17] MEDS: DIPHENHYDRAMINE 50 MG INJ IV ×4 (05:18→23:35)
[2019-01-17 05:32] LABS: ADD MAN DIFF? NO
[2019-01-17 05:37] LABS: WHITE BLOOD COUNT 16.9 10^3/ul (4.8-10.8)
[2019-01-17 05:37] LABS: BASOPHIL # 0.1 10^3/ul (0.0-0.1); BASOPHILS % 0.4 % (0.0-2.0); EOSINOPHILS # 0.1 10^3/ul (0.0-0.5); EOSINOPHILS % 0.3 % (0.0-7.0); HEMOGLOBIN 8.5 g/dl (12.0-16.0); LYMPHOCYTES # 1.1 10^3/ul (0.8-2.9); LYMPHOCYTES % 6.4 % (15.0-51.0); MEAN CORPUSCULAR HEMOGLOBIN 27.2 pg (29.0-33.0); MEAN CORPUSCULAR VOLUME 79.9 fl (82.0-101.0); MEAN PLATELET VOLUME 9.2 fl (7.4-10.4); MONOCYTE # 1.4 10^3/ul (0.3-0.9); MONOCYTES % 8.1 % (0.0-11.0); NEUTROPHIL # 14.2 10^3/ul (1.6-7.5); NEUTROPHILS % 83.9 % (39.0-77.0); NUCLEATED RED BLOOD CELLS # 0.5 10^3/ul (0.0-0.0); NUCLEATED RED BLOOD CELLS% 2.8 /100WBC (0.0-0.0); PLATELET COUNT 617 10^3/UL (140-415); RED BLOOD COUNT 3.13 10^6/ul (4.20-5.40); RED CELL DISTRIBUTION WIDTH 19.6 % (11.5-14.5)
[2019-01-17] MEDS: LORAZEPAM 2 MG INJ IV ×2 (06:08→14:54)
[2019-01-17 06:27] LABS: ANION GAP 12 (5-13); BLOOD UREA NITROGEN 6 mg/dl (7-20); CALCIUM 9.7 mg/dl (8.4-10.2); CARBON DIOXIDE 23 mmol/L (21-31); CHLORIDE 108 mmol/L (97-110); CREATININE 0.34 mg/dl (0.44-1.00); Estimated GFR > 60 mL/min (>60); GLUCOSE 112 mg/dl (70-220); POTASSIUM 3.6 mmol/L (3.5-5.1); SODIUM 143 mmol/L (135-144)
[2019-01-17] MEDS: APIXABAN 5 MG TABLET PO ×2 (09:49→22:11)
[2019-01-17] MEDS: HYDROCODONE/APAP (5/325) TAB PO ×3 (09:50→23:35)
[2019-01-17] MEDS: FOLIC ACID 1 MG TAB PO (11:18)
[2019-01-17] MEDS: LEVOFLOXACIN 500MG/D5W (PMX) 100 ML IVPB (17:30)
[2019-01-17] MEDS: traZODone 50 MG TAB PO (22:10)
[2019-01-17] MEDS: SOD CHLORIDE 0.9% 1,000 ML IV (22:54)
[2019-01-18] MEDS: LORAZEPAM 2 MG INJ IV ×3 (00:17→18:11)
[2019-01-18] MEDS: HYDROmorphONE 2 MG/ML SYG IV ×8 (01:49→22:58)
[2019-01-18] MEDS: SOD CHLORIDE 0.9% 1,000 ML IV ×3 (03:07→17:16)
[2019-01-18 05:45] LABS: ADD MAN DIFF? NO
[2019-01-18 05:52] LABS: ABNORMAL IP MESSAGE 1; BASOPHIL # 0.1 10^3/ul (0.0-0.1); BASOPHILS % 0.5 % (0.0-2.0); EOSINOPHILS # 0.1 10^3/ul (0.0-0.5); EOSINOPHILS % 0.7 % (0.0-7.0); HEMATOCRIT 23.2 % (37.0-47.0); HEMOGLOBIN 7.9 g/dl (12.0-16.0); LYMPHOCYTES # 1.5 10^3/ul (0.8-2.9); LYMPHOCYTES % 10.2 % (15.0-51.0); MEAN CORPUSCULAR HEMOGLOBIN 26.9 pg (29.0-33.0); MEAN CORPUSCULAR HGB CONC 34.1 g/dl (32.0-37.0); MEAN CORPUSCULAR VOLUME 78.9 fl (82.0-101.0); MEAN PLATELET VOLUME 9.9 fl (7.4-10.4); MONOCYTE # 1.6 10^3/ul (0.3-0.9); MONOCYTES % 10.8 % (0.0-11.0); NEUTROPHIL # 11.4 10^3/ul (1.6-7.5); NEUTROPHILS % 77.1 % (39.0-77.0); NUCLEATED RED BLOOD CELLS # 0.6 10^3/ul (0.0-0.0); NUCLEATED RED BLOOD CELLS% 3.8 /100WBC (0.0-0.0); PLATELET COUNT 560 10^3/UL (140-415); RED BLOOD COUNT 2.94 10^6/ul (4.20-5.40); RED CELL DISTRIBUTION WIDTH 18.9 % (11.5-14.5)
[2019-01-18 05:52] LABS: WHITE BLOOD COUNT 14.7 10^3/ul (4.8-10.8)
[2019-01-18 05:58] LABS: POSITIVE DIFF @See below
[2019-01-18] MEDS: DIPHENHYDRAMINE 50 MG INJ IV ×3 (06:29→18:38)
[2019-01-18] MEDS: HYDROCODONE/APAP (5/325) TAB PO ×2 (06:29→12:28)
[2019-01-18] MEDS: APIXABAN 5 MG TABLET PO ×2 (08:56→21:41)
[2019-01-18] MEDS: FOLIC ACID 1 MG TAB PO (08:56)
[2019-01-18] MEDS: LEVOFLOXACIN 500MG/D5W (PMX) 100 ML IVPB (17:14)
[2019-01-18] MEDS: traZODone 50 MG TAB PO (21:41)
[2019-01-19] MEDS: DIPHENHYDRAMINE 50 MG INJ IV ×4 (00:35→18:40)
[2019-01-19] MEDS: HYDROmorphONE 2 MG/ML SYG IV ×7 (01:54→20:07)
[2019-01-19] MEDS: LORAZEPAM 2 MG INJ IV ×2 (03:00→14:45)
[2019-01-19] MEDS: APIXABAN 5 MG TABLET PO ×2 (10:02→20:06)
[2019-01-19] MEDS: SOD CHLORIDE 0.9% 1,000 ML IV (10:03)
[2019-01-19] MEDS: FOLIC ACID 1 MG TAB PO (10:03)
[2019-01-19] MEDS: LEVOFLOXACIN 500MG/D5W (PMX) 100 ML IVPB (17:01)
[2019-01-19] MEDS: HYDROCODONE/APAP (5/325) TAB PO (18:39)
[2019-01-19] MEDS: traZODone 50 MG TAB PO (20:06)
[2019-01-19] MEDS ORDERED: traZODone 50 MG TAB PO (21:00)
[2019-01-20] MEDS: SOD CHLORIDE 0.9% 1,000 ML IV ×3 (01:00→22:24)
[2019-01-20] MEDS: DIPHENHYDRAMINE 50 MG INJ IV ×4 (01:31→19:37)
[2019-01-20] MEDS: HYDROCODONE/APAP (5/325) TAB PO ×3 (01:31→17:55)
[2019-01-20] MEDS: HYDROmorphONE 2 MG/ML SYG IV ×7 (02:33→23:37)
[2019-01-20] MEDS: LORAZEPAM 2 MG INJ IV ×2 (03:43→14:58)
[2019-01-20 05:14] LABS: ABNORMAL IP MESSAGE 1; HEMATOCRIT 20.9 % (37.0-47.0); MEAN CORPUSCULAR HEMOGLOBIN 25.7 pg (29.0-33.0); MEAN CORPUSCULAR HGB CONC 33.5 g/dl (32.0-37.0); MEAN CORPUSCULAR VOLUME 76.8 fl (82.0-101.0); MEAN PLATELET VOLUME 9.7 fl (7.4-10.4); NUCLEATED RED BLOOD CELLS% 13.1 /100WBC (0.0-0.0); PLATELET COUNT 560 10^3/UL (140-415); RED BLOOD COUNT 2.72 10^6/ul (4.20-5.40); RED CELL DISTRIBUTION WIDTH 20.1 % (11.5-14.5)
[2019-01-20 05:14] LABS: WHITE BLOOD COUNT 11.9 10^3/ul (4.8-10.8)
[2019-01-20 05:20] LABS: ADD MAN DIFF? YES; POSITIVE DIFF @See below
[2019-01-20 08:57] LABS: ANISOCYTOSIS 1+ (0-0); BAND NEUTROPHILS #M 0.1 10^3/ul (0.0-0.6); BAND NEUTROPHILS % (M) 1 % (0-4); BASOPHIL #M 0.1 10^3/ul (0.0-0.0); BASOPHILS % (M) 1 % (0-2); EOSINOPHILS % (M) 5 % (0-7); ERYTHROBLAST% (NRBC) (M) 20 % (0-0); GIANT THROMBO% (M) 2 % (0-0); HYPOCHROMASIA 2+ (0-0); LYMPHOCYTES % (M) 26 % (15-51); MICROCYTOSIS 1+ (0-0); MONOCYTE #M 1.1 10^3/ul (0.3-0.9); MONOCYTES % (M) 10 % (0-11); PLATELET ESTIMATE INCREASED; POIKILOCYTOSIS 2+ (0-0); POLYCHROMASIA 3+ (0-0); SEG NEUT #M 6.8 10^3/ul (1.6-7.5); SEGMENTED NEUTROPHILS (M) % 57 % (39-77); SICKLE CELL 1+ (0-0); SMUDGE%M 1 % (0-0); TARGET CELLS 3+ (0-0); TEAR DROP CELLS 1+ (0-0)
[2019-01-20] MEDS: FOLIC ACID 1 MG TAB PO (10:10)
[2019-01-20] MEDS: APIXABAN 5 MG TABLET PO ×2 (10:10→20:23)
[2019-01-20 14:37] LABS: HEMATOCRIT 20.6 % (37.0-47.0); MEAN CORPUSCULAR HEMOGLOBIN 26.2 pg (29.0-33.0); MEAN CORPUSCULAR VOLUME 77.2 fl (82.0-101.0); MEAN PLATELET VOLUME 9.5 fl (7.4-10.4); PLATELET COUNT 581 10^3/UL (140-415); RED BLOOD COUNT 2.67 10^6/ul (4.20-5.40); RED CELL DISTRIBUTION WIDTH 20.2 % (11.5-14.5)
[2019-01-20 14:37] LABS: WHITE BLOOD COUNT 11.1 10^3/ul (4.8-10.8)
[2019-01-20 14:40] LABS: POSITIVE DIFF @See below
[2019-01-20 14:41] LABS: ADD MAN DIFF? YES
[2019-01-20 15:50] LABS: ANISOCYTOSIS 1+ (0-0); BAND NEUTROPHILS #M 0.3 10^3/ul (0.0-0.6); BAND NEUTROPHILS % (M) 3 % (0-4); BASOPHIL #M 0.2 10^3/ul (0.0-0.0); BASOPHILS % (M) 2 % (0-2); EOSINOPHILS % (M) 6 % (0-7); ERYTHROBLAST% (NRBC) (M) 66 % (0-0); GIANT THROMBO% (M) 4 % (0-0); LYMPHOCYTES #M 2.8 10^3/ul (0.8-2.9); LYMPHOCYTES % (M) 26 % (15-51); MONOCYTE #M 0.7 10^3/ul (0.3-0.9); MONOCYTES % (M) 7 % (0-11); PLATELET ESTIMATE INCREASED; POLYCHROMASIA 3+ (0-0); REACTIVE LYMPHOCYTES #M 0.1 10^3/ul (0.0-0.0); REACTIVE LYMPHOCYTES% (M) 1 % (0-0); SEG NEUT #M 6.2 10^3/ul (1.6-7.5); SEGMENTED NEUTROPHILS (M) % 56 % (39-77); SMUDGE%M 12 % (0-0)
[2019-01-20] MEDS: morphine (ER) 15 MG TAB PO ×2 (17:26→22:47)
[2019-01-20] MEDS: LEVOFLOXACIN 500MG/D5W (PMX) 100 ML IVPB (17:26)
[2019-01-20] MEDS: traZODone 50 MG TAB PO (20:23)
[2019-01-21] MEDS: HYDROCODONE/APAP (5/325) TAB PO ×3 (01:00→16:34)
[2019-01-21] MEDS: DIPHENHYDRAMINE 50 MG INJ IV ×4 (01:41→19:36)
[2019-01-21] MEDS: HYDROmorphONE 2 MG/ML SYG IV ×6 (03:39→23:29)
[2019-01-21] MEDS: LORAZEPAM 2 MG INJ IV ×2 (05:02→17:53)
[2019-01-21] MEDS: morphine (ER) 15 MG TAB PO ×3 (05:03→21:00)
[2019-01-21 07:49] LABS: ADD MAN DIFF? NO
[2019-01-21 07:53] LABS: WHITE BLOOD COUNT 9.3 10^3/ul (4.8-10.8)
[2019-01-21 07:53] LABS: ABNORMAL IP MESSAGE 1; BASOPHIL # 0.1 10^3/ul (0.0-0.1); BASOPHILS % 1.3 % (0.0-2.0); EOSINOPHILS # 0.6 10^3/ul (0.0-0.5); EOSINOPHILS % 6.8 % (0.0-7.0); HEMATOCRIT 20.1 % (37.0-47.0); LYMPHOCYTES # 1.7 10^3/ul (0.8-2.9); LYMPHOCYTES % 18.4 % (15.0-51.0); MEAN CORPUSCULAR HEMOGLOBIN 25.7 pg (29.0-33.0); MEAN CORPUSCULAR HGB CONC 33.3 g/dl (32.0-37.0); MEAN PLATELET VOLUME 10.2 fl (7.4-10.4); MONOCYTE # 1.1 10^3/ul (0.3-0.9); MONOCYTES % 11.8 % (0.0-11.0); NEUTROPHIL # 5.7 10^3/ul (1.6-7.5); NEUTROPHILS % 60.9 % (39.0-77.0); NUCLEATED RED BLOOD CELLS # 0.9 10^3/ul (0.0-0.0); NUCLEATED RED BLOOD CELLS% 9.9 /100WBC (0.0-0.0); PLATELET COUNT 506 10^3/UL (140-415); RED BLOOD COUNT 2.61 10^6/ul (4.20-5.40); RED CELL DISTRIBUTION WIDTH 21.1 % (11.5-14.5)
[2019-01-21 07:57] LABS: HEMOGLOBIN 6.7 g/dl (12.0-16.0); POSITIVE DIFF @See below
[2019-01-21 07:59] LABS: PATH REVIEW? YES
[2019-01-21 08:19] LABS: ALANINE AMINOTRANSFERASE 10 IU/L (13-69); ALBUMIN 3.7 g/dl (3.3-4.9); ALBUMIN/GLOBULIN RATIO 0.97; ALKALINE PHOSPHATASE 84 IU/L (42-121); ANION GAP 12 (5-13); ASPARTATE AMINO TRANSFERASE 25 IU/L (15-46); BILIRUBIN,INDIRECT 1.2 mg/dl (0-1.1); BILIRUBIN,TOTAL 1.2 mg/dl (0.2-1.3); BLOOD UREA NITROGEN 6 mg/dl (7-20); CARBON DIOXIDE 26 mmol/L (21-31); CHLORIDE 105 mmol/L (97-110); CREATININE 0.31 mg/dl (0.44-1.00); Estimated GFR > 60 mL/min (>60); GLUCOSE 84 mg/dl (70-220); SODIUM 143 mmol/L (135-144); TOTAL PROTEIN 7.5 g/dl (6.1-8.1)
[2019-01-21 08:21] LABS: POTASSIUM 2.9 mmol/L (3.5-5.1)
[2019-01-21 10:19] LABS: ANISOCYTOSIS 1+ (0-0); BAND NEUTROPHILS #M 0.1 10^3/ul (0.0-0.6); BAND NEUTROPHILS % (M) 2 % (0-4); BASOPHILS % (M) 1 % (0-2); EOSINOPHILS % (M) 10 % (0-7); ERYTHROBLAST% (NRBC) (M) 65 % (0-0); HOWELL-JOLLY BODIES 1+ (0-0); HYPOCHROMASIA 1+ (0-0); LYMPHOCYTES #M 4.2 10^3/ul (0.8-2.9); LYMPHOCYTES % (M) 46 % (15-51); MONOCYTE #M 0.9 10^3/ul (0.3-0.9); MONOCYTES % (M) 10 % (0-11); OVALOCYTES 1+ (0-0); PLATELET ESTIMATE INCREASED; POIKILOCYTOSIS 3+ (0-0); POLYCHROMASIA 3+ (0-0); REACTIVE LYMPHOCYTES% (M) 1 % (0-0); SEG NEUT #M 2.8 10^3/ul (1.6-7.5); SEGMENTED NEUTROPHILS (M) % 30 % (39-77); SMUDGE%M 27 % (0-0); TARGET CELLS 3+ (0-0)
[2019-01-21] MEDS: APIXABAN 5 MG TABLET PO ×2 (10:33→20:42)
[2019-01-21] MEDS: FOLIC ACID 1 MG TAB PO (10:33)
[2019-01-21] MEDS ORDERED: POTASSIUM CHLORIDE (SR) 20 MEQ TAB PO (11:50)
[2019-01-21] MEDS: SOD CHLORIDE 0.9% 1,000 ML IV (12:42)
[2019-01-21 12:45] LABS: ANION GAP 10 (5-13); BLOOD UREA NITROGEN 5 mg/dl (7-20); CALCIUM 9.3 mg/dl (8.4-10.2); CARBON DIOXIDE 25 mmol/L (21-31); CHLORIDE 109 mmol/L (97-110); CREATININE 0.36 mg/dl (0.44-1.00); Estimated GFR > 60 mL/min (>60); GLUCOSE 106 mg/dl (70-220); SODIUM 144 mmol/L (135-144)
[2019-01-21 14:11] LABS: PROCALCITONIN <0.10 ng/mL (<0.10)
[2019-01-21] MEDS: POTASSIUM CHLORIDE 100 ML IVPB ×2 (14:23→16:36)
[2019-01-21] MEDS: LEVOFLOXACIN 500MG/D5W (PMX) 100 ML IVPB (17:58)
[2019-01-21] MEDS: traZODone 50 MG TAB PO (20:42)
[2019-01-22] MEDS: HYDROCODONE/APAP (5/325) TAB PO ×3 (01:10→18:34)
[2019-01-22] MEDS: HYDROmorphONE 1 MG/ML SYG IV (01:55)
[2019-01-22] MEDS: DIPHENHYDRAMINE 50 MG INJ IV ×4 (03:23→21:51)
[2019-01-22] MEDS: SOD CHLORIDE 0.9% 1,000 ML IV ×2 (03:23→17:30)
[2019-01-22] MEDS: HYDROmorphONE 2 MG/ML SYG IV ×5 (03:24→19:56)
[2019-01-22] MEDS: LORAZEPAM 2 MG INJ IV ×3 (04:12→22:38)
[2019-01-22] MEDS: morphine (ER) 15 MG TAB PO ×3 (06:23→23:20)
[2019-01-22] MEDS: APIXABAN 5 MG TABLET PO ×2 (08:39→21:18)
[2019-01-22] MEDS: FOLIC ACID 1 MG TAB PO (08:39)
[2019-01-22] MEDS: POTASSIUM CHLORIDE (SR) 20 MEQ TAB PO ×2 (12:30→16:30)
[2019-01-22] MEDS: LEVOFLOXACIN 500MG/D5W (PMX) 100 ML IVPB (17:29)
[2019-01-22] MEDS: traZODone 50 MG TAB PO (21:18)
[2019-01-23] MEDS: HYDROmorphONE 2 MG/ML SYG IV ×6 (01:39→21:41)
[2019-01-23] MEDS: HYDROCODONE/APAP (5/325) TAB PO (02:28)
[2019-01-23] MEDS: DIPHENHYDRAMINE 50 MG INJ IV ×4 (04:45→22:45)
[2019-01-23] MEDS: morphine (ER) 15 MG TAB PO ×3 (06:29→22:43)
[2019-01-23] MEDS: APIXABAN 5 MG TABLET PO ×2 (09:11→21:40)
[2019-01-23] MEDS: FOLIC ACID 1 MG TAB PO (09:11)
[2019-01-23] MEDS: SOD CHLORIDE 0.9% 1,000 ML IV ×2 (09:12→21:54)
[2019-01-23 10:38] LABS: ADD MAN DIFF? NO
[2019-01-23 10:44] LABS: ABNORMAL IP MESSAGE 1; BASOPHIL # 0.1 10^3/ul (0.0-0.1); BASOPHILS % 1.6 % (0.0-2.0); EOSINOPHILS # 0.4 10^3/ul (0.0-0.5); EOSINOPHILS % 4.9 % (0.0-7.0); HEMATOCRIT 20.8 % (37.0-47.0); LYMPHOCYTES % 21.9 % (15.0-51.0); MEAN CORPUSCULAR HEMOGLOBIN 25.1 pg (29.0-33.0); MEAN CORPUSCULAR HGB CONC 33.2 g/dl (32.0-37.0); MEAN CORPUSCULAR VOLUME 75.6 fl (82.0-101.0); MEAN PLATELET VOLUME 9.5 fl (7.4-10.4); MONOCYTES % 10.8 % (0.0-11.0); NEUTROPHIL # 5.4 10^3/ul (1.6-7.5); NEUTROPHILS % 60.2 % (39.0-77.0); NUCLEATED RED BLOOD CELLS # 0.5 10^3/ul (0.0-0.0); NUCLEATED RED BLOOD CELLS% 5.8 /100WBC (0.0-0.0); PLATELET COUNT 784 10^3/UL (140-415); RED BLOOD COUNT 2.75 10^6/ul (4.20-5.40); RED CELL DISTRIBUTION WIDTH 22.2 % (11.5-14.5)
[2019-01-23 10:54] LABS: HEMOGLOBIN 6.9 g/dl (12.0-16.0)
[2019-01-23 10:56] LABS: POSITIVE DIFF @See below
[2019-01-23 11:08] LABS: ANION GAP 12 (5-13); BLOOD UREA NITROGEN 6 mg/dl (7-20); CALCIUM 9.3 mg/dl (8.4-10.2); CARBON DIOXIDE 24 mmol/L (21-31); CHLORIDE 107 mmol/L (97-110); CREATININE 0.33 mg/dl (0.44-1.00); Estimated GFR > 60 mL/min (>60); GLUCOSE 97 mg/dl (70-220); POTASSIUM 3.4 mmol/L (3.5-5.1); SODIUM 143 mmol/L (135-144)
[2019-01-23] MEDS: LORAZEPAM 2 MG INJ IV ×2 (11:19→19:42)
[2019-01-23] MEDS ORDERED: POTASSIUM CHLORIDE (SR) 20 MEQ TAB PO (15:14)
[2019-01-23] MEDS: POTASSIUM CHLORIDE 100 ML IVPB ×2 (20:39→22:45)
[2019-01-23] MEDS: traZODone 50 MG TAB PO (21:41)
[2019-01-23] MEDS: SOD CHLORIDE 0.9% 250 ML IV* (23:00)
[2019-01-24 01:11] LABS: IMMEDIATE SPIN CROSSMATCH 1 1
[2019-01-24] MEDS: HYDROmorphONE 2 MG/ML SYG IV ×6 (01:41→23:02)
[2019-01-24] MEDS: HYDROCODONE/APAP (5/325) TAB PO (02:07)
[2019-01-24] MEDS: LORAZEPAM 2 MG INJ IV ×3 (03:42→20:55)
[2019-01-24] MEDS: DIPHENHYDRAMINE 50 MG INJ IV ×3 (04:53→17:12)
[2019-01-24] MEDS: SOD CHLORIDE 0.9% 1,000 ML IV ×2 (04:58→18:42)
[2019-01-24] MEDS: morphine (ER) 15 MG TAB PO ×4 (06:23→22:10)
[2019-01-24] MEDS: APIXABAN 5 MG TABLET PO ×2 (09:36→20:51)
[2019-01-24] MEDS: FOLIC ACID 1 MG TAB PO (09:37)
[2019-01-24 10:10] LABS: ADD MAN DIFF? NO
[2019-01-24 10:14] LABS: BASOPHIL # 0.2 10^3/ul (0.0-0.1); BASOPHILS % 2.2 % (0.0-2.0); EOSINOPHILS # 0.5 10^3/ul (0.0-0.5); EOSINOPHILS % 5.5 % (0.0-7.0); HEMATOCRIT 25.9 % (37.0-47.0); HEMOGLOBIN 8.4 g/dl (12.0-16.0); LYMPHOCYTES # 2.2 10^3/ul (0.8-2.9); LYMPHOCYTES % 26.3 % (15.0-51.0); MEAN CORPUSCULAR HGB CONC 32.4 g/dl (32.0-37.0); MEAN CORPUSCULAR VOLUME 77.1 fl (82.0-101.0); MEAN PLATELET VOLUME 9.3 fl (7.4-10.4); MONOCYTE # 0.8 10^3/ul (0.3-0.9); MONOCYTES % 9.8 % (0.0-11.0); NEUTROPHIL # 4.7 10^3/ul (1.6-7.5); NEUTROPHILS % 55.6 % (39.0-77.0); NUCLEATED RED BLOOD CELLS # 0.4 10^3/ul (0.0-0.0); NUCLEATED RED BLOOD CELLS% 5.2 /100WBC (0.0-0.0); PLATELET COUNT 820 10^3/UL (140-415); RED BLOOD COUNT 3.36 10^6/ul (4.20-5.40); RED CELL DISTRIBUTION WIDTH 21.6 % (11.5-14.5)
[2019-01-24 10:14] LABS: WHITE BLOOD COUNT 8.5 10^3/ul (4.8-10.8)
[2019-01-24] MEDS: OXYCODONE/ACETAMINOPHEN (10/325) TAB PO (16:42)
[2019-01-24] MEDS: traZODone 50 MG TAB PO (20:51)
[2019-01-25] MEDS: DIPHENHYDRAMINE 50 MG INJ IV ×3 (00:09→11:56)
[2019-01-25] MEDS: HYDROmorphONE 2 MG/ML SYG IV ×3 (04:33→12:19)
[2019-01-25] MEDS: OXYCODONE/ACETAMINOPHEN (10/325) TAB PO ×2 (05:20→09:30)
[2019-01-25] MEDS: morphine (ER) 15 MG TAB PO (06:06)
[2019-01-25] MEDS: FOLIC ACID 1 MG TAB PO (08:25)
[2019-01-25] MEDS: APIXABAN 5 MG TABLET PO (08:25)
[2019-01-25] MEDS: SOD CHLORIDE 0.9% 1,000 ML IV (08:30)
[2019-01-25] MEDS: HEPARIN (100 UNITS/ML) 5 ML SYG CATHETER (13:08)
== END 2019-01-25 13:30 | disposition home or self-care (01) | DRG 812 ==
LOC: E/R 06:52 → PP2 09:17
PROC: 30233N1 Transfusion of Nonautologous Red Blood Cells into Peripheral Vein, Percutaneous Approach (ICD-10-PCS; principal; 2019-01-24)
DX: D57.00 Hb-SS disease with crisis, unspecified (principal); I82.C11 Acute embolism and thrombosis of right internal jugular vein; M90.512 Osteonecrosis in diseases classified elsewhere, left shoulder; T82.868A Thrombosis due to vascular prosthetic devices, implants and grafts, initial encounter; E87.6 Hypokalemia; F17.200 Nicotine dependence, unspecified, uncomplicated; Y83.8 Other surgical procedures as the cause of abnormal reaction of the patient, or of later complication, without mention of misadventure at the time of the procedure; Z76.5 Malingerer [conscious simulation]
CPT/HCPCS: 36415; 36430; 71045; 73030; 80048; 80053; 81003; 83735; 84145; 84703; 85025; 85045; 86850; 86900; 86901; 86920; 93970; 96374; 96375; 97116; 97162; 97530; 99285-25; G0378

== ENCOUNTER 2019-01-30 08:16 | Emergency (ER) | payer OTHER ==
[2019-01-30] MEDS: KETOROLAC 30 MG INJ IM (08:43)
[2019-01-31] MEDS ORDERED: HYDROmorphONE 1 MG/ML SYG (08:50)
== END 2019-01-30 10:11 | disposition home or self-care (01) ==
LOC: E/R 08:16
DX: D57.00 Hb-SS disease with crisis, unspecified (principal)
CPT/HCPCS: 71045; 93005; 96372; 99284-25

== ENCOUNTER 2019-01-31 01:16 | Inpatient (IN) | payer OTHER ==
[2019-01-31] MEDS: ONDANSETRON 4 MG INJ IV (02:29)
[2019-01-31] MEDS: DIPHENHYDRAMINE 50 MG INJ IV (02:29)
[2019-01-31 02:30] LABS: ADD MAN DIFF? NO
[2019-01-31] MEDS: HYDROmorphONE 1 MG/ML SYG IV ×6 (02:30→21:47)
[2019-01-31] MEDS: SOD CHLORIDE 0.9% 1,000 ML IV ×4 (02:30→20:12)
[2019-01-31 02:35] LABS: ABNORMAL IP MESSAGE 1; BASOPHIL # 0.2 10^3/ul (0.0-0.1); EOSINOPHILS # 0.4 10^3/ul (0.0-0.5); EOSINOPHILS % 3.6 % (0.0-7.0); HEMATOCRIT 28.9 % (37.0-47.0); HEMOGLOBIN 9.6 g/dl (12.0-16.0); LYMPHOCYTES # 2.4 10^3/ul (0.8-2.9); LYMPHOCYTES % 21.1 % (15.0-51.0); MEAN CORPUSCULAR HEMOGLOBIN 24.8 pg (29.0-33.0); MEAN CORPUSCULAR HGB CONC 33.2 g/dl (32.0-37.0); MEAN CORPUSCULAR VOLUME 74.7 fl (82.0-101.0); MEAN PLATELET VOLUME 8.9 fl (7.4-10.4); MONOCYTE # 1.3 10^3/ul (0.3-0.9); MONOCYTES % 11.4 % (0.0-11.0); NEUTROPHIL # 7.1 10^3/ul (1.6-7.5); NEUTROPHILS % 61.3 % (39.0-77.0); NUCLEATED RED BLOOD CELLS # 0.2 10^3/ul (0.0-0.0); NUCLEATED RED BLOOD CELLS% 1.6 /100WBC (0.0-0.0); PLATELET COUNT 921 10^3/UL (140-415); RED BLOOD COUNT 3.87 10^6/ul (4.20-5.40); RED CELL DISTRIBUTION WIDTH 23.9 % (11.5-14.5); RETICULOCYTE COUNT # 0.103 X10^6 (0.020-0.110); RETICULOCYTE COUNT % 2.7 % (0.5-1.5); RETICULOCYTE RBC 3.87
[2019-01-31 02:35] LABS: WHITE BLOOD COUNT 11.5 10^3/ul (4.8-10.8)
[2019-01-31 02:52] LABS: ANION GAP 12 (5-13); BLOOD UREA NITROGEN 17 mg/dl (7-20); CALCIUM 9.6 mg/dl (8.4-10.2); CARBON DIOXIDE 24 mmol/L (21-31); CHLORIDE 109 mmol/L (97-110); CREATININE 0.66 mg/dl (0.44-1.00); Estimated GFR > 60 mL/min (>60); GLUCOSE 95 mg/dl (70-220); SODIUM 145 mmol/L (135-144)
[2019-01-31 02:54] LABS: POSITIVE DIFF @See below
[2019-01-31] MEDS ORDERED: ACETAMINOPHEN 325 MG TAB PO (05:30)
[2019-01-31] MEDS ORDERED: ONDANSETRON 4 MG INJ IV (05:30)
[2019-01-31] MEDS ORDERED: DOCUSATE SODIUM 100 MG CAP PO (05:30)
[2019-01-31] MEDS ORDERED: HYDROmorphONE 0.5 MG/0.5 ML SYG IV (05:30)
[2019-01-31] MEDS ORDERED: BISACODYL (EC) 5 MG TAB PO (05:30)
[2019-01-31] MEDS ORDERED: NACL 0.9% 3 ML SYG IV (05:30)
[2019-01-31] MEDS ORDERED: DIPHENHYDRAMINE 50 MG INJ IM (05:30)
[2019-01-31] MEDS ORDERED: DIPHENHYDRAMINE 50 MG INJ IV (05:37)
[2019-01-31] MEDS: HYDROmorphONE 0.5 MG/0.5 ML SYG IV (05:40)
[2019-01-31] MEDS ORDERED: DIPHENHYDRAMINE 25 MG CAP PO (06:30)
[2019-01-31] MEDS: ENOXAPARIN 40 MG/0.4 ML SYG SC (09:00)
[2019-01-31] MEDS: FOLIC ACID 1 MG TAB PO (09:37)
[2019-01-31] MEDS: morphine (ER) 15 MG TAB PO ×2 (09:38→20:11)
[2019-01-31] MEDS: HYDROXYUREA 500 MG CAP PO ×3 (13:12→21:47)
[2019-01-31] MEDS: hydrOXYzine HCL 25 MG TAB PO (17:06)
[2019-01-31] MEDS: LORAZEPAM 0.5 MG TAB PO (20:11)
[2019-02-01] MEDS: SOD CHLORIDE 0.9% 1,000 ML IV ×2 (01:19→05:49)
[2019-02-01] MEDS: HYDROmorphONE 1 MG/ML SYG IV ×2 (01:41→05:30)
[2019-02-01] MEDS: FOLIC ACID 1 MG TAB PO (08:40)
[2019-02-01] MEDS: morphine 2 MG INJ IV (08:40)
[2019-02-01] MEDS: hydrOXYzine HCL 25 MG TAB PO (08:40)
[2019-02-01] MEDS: HYDROXYUREA 500 MG CAP PO (08:41)
[2019-02-01] MEDS: ENOXAPARIN 40 MG/0.4 ML SYG SC (09:00)
[2019-02-01] MEDS: morphine (ER) 15 MG TAB PO (09:29)
[2019-02-02] MEDS ORDERED: HYDROCODONE/APAP (7.5/325) TAB PO (06:00)
== END 2019-02-01 11:20 | disposition home or self-care (01) | DRG 812 ==
LOC: E/R 01:16 → 5EC 05:13
DX: D57.00 Hb-SS disease with crisis, unspecified (principal); D72.829 Elevated white blood cell count, unspecified
CPT/HCPCS: 80048; 85025; 85045; 96361; 96374; 96375; 99285-25

== ENCOUNTER 2019-02-19 18:25 | Emergency (ER) | payer SELFPAY, OTHER | END 2019-02-19 18:50 | disposition left against medical advice (07) | LOC: E/R 18:25 | DX: Z53.21 Procedure and treatment not carried out due to patient leaving prior to being seen by health care provider (principal) ==

== ENCOUNTER 2019-02-19 22:40 | Emergency (ER) | payer OTHER ==
[2019-02-20] MEDS: ONDANSETRON 4 MG INJ IV (03:41)
[2019-02-20] MEDS: HYDROmorphONE 1 MG/ML SYG IV (03:42)
[2019-02-20] MEDS: DIPHENHYDRAMINE 50 MG INJ IV (03:42)
[2019-02-20] MEDS: SOD CHLORIDE 0.9% 1,000 ML IV (03:42)
[2019-02-20 04:24] LABS: WHITE BLOOD COUNT 11.7 10^3/ul (4.8-10.8)
[2019-02-20 04:24] LABS: ABNORMAL IP MESSAGE 1; HEMATOCRIT 23.7 % (37.0-47.0); HEMOGLOBIN 7.9 g/dl (12.0-16.0); MEAN CORPUSCULAR HGB CONC 33.3 g/dl (32.0-37.0); MEAN PLATELET VOLUME 9.4 fl (7.4-10.4); PLATELET COUNT 330 10^3/UL (140-415); RED BLOOD COUNT 3.16 10^6/ul (4.20-5.40); RED CELL DISTRIBUTION WIDTH 24.3 % (11.5-14.5); RETICULOCYTE COUNT # 0.114 X10^6 (0.020-0.110); RETICULOCYTE COUNT % 3.6 % (0.5-1.5); RETICULOCYTE RBC 3.16
[2019-02-20 04:39] LABS: ANION GAP 13 (5-13); BLOOD UREA NITROGEN 7 mg/dl (7-20); CALCIUM 8.9 mg/dl (8.4-10.2); CARBON DIOXIDE 19 mmol/L (21-31); CHLORIDE 112 mmol/L (97-110); CREATININE 0.37 mg/dl (0.44-1.00); Estimated GFR > 60 mL/min (>60); GLUCOSE 87 mg/dl (70-220); SODIUM 144 mmol/L (135-144)
[2019-02-20 05:01] LABS: ADD MAN DIFF? YES; POSITIVE DIFF @See below
[2019-02-20 06:13] LABS: ADD UMIC NO; UR ASCORBIC ACID NEGATIVE (NEGATIVE); UR BILIRUBIN (Dip) NEGATIVE (NEGATIVE); UR BLOOD (Dip) NEGATIVE (NEGATIVE); UR CLARITY CLEAR (CLEAR); UR COLOR STRAW (YELLOW); UR GLUCOSE (Dip) NEGATIVE (NEGATIVE); UR KETONES (Dip) NEGATIVE (NEGATIVE); UR LEUKOCYTE ESTERASE (Dip) NEGATIVE Leu/ul (NEGATIVE); UR NITRITE (Dip) NEGATIVE (NEGATIVE); UR SPECIFIC GRAVITY (Dip) 1.011 (1.003-1.030); UR TOTAL PROTEIN (Dip) NEGATIVE (NEGATIVE); UR UROBILINOGEN (Dip) NEGATIVE (NEGATIVE)
[2019-02-20 06:14] LABS: ANISOCYTOSIS 2+ (0-0); BAND NEUTROPHILS #M 1.1 10^3/ul (0.0-0.6); BAND NEUTROPHILS % (M) 10 % (0-4); EOSINOPHILS % (M) 5 % (0-7); ERYTHROBLAST% (NRBC) (M) 6 % (0-0); HYPOCHROMASIA 2+ (0-0); LYMPHOCYTES % (M) 35 % (15-51); METAMYELOCYTES #M 0.2 10^3/ul (0.0-0.0); METAMYELOCYTES %M 2 % (0-0); MICROCYTOSIS 2+ (0-0); MONOCYTE #M 0.4 10^3/ul (0.3-0.9); MONOCYTES % (M) 4 % (0-11); MYELOCYTES #M 0.1 10^3/ul (0.0-0.0); MYELOCYTES % (M) 1 % (0-0); PLATELET ESTIMATE NORMAL; POIKILOCYTOSIS 2+ (0-0); POLYCHROMASIA 2+ (0-0); SEG NEUT #M 5.2 10^3/ul (1.6-7.5); SEGMENTED NEUTROPHILS (M) % 43 % (39-77); SICKLE CELL 2+ (0-0); TARGET CELLS 2+ (0-0); TEAR DROP CELLS 1+ (0-0)
[2019-02-20] MEDS ORDERED: HYDROCODONE/APAP (10/325) TAB PO (07:00)
== END 2019-02-20 06:55 | disposition home or self-care (01) ==
LOC: E/R 22:40
DX: D57.00 Hb-SS disease with crisis, unspecified (principal); R07.9 Chest pain, unspecified
CPT/HCPCS: 80048; 81003; 81025; 85025; 85045; 96374; 96375; 99284-25

== ENCOUNTER 2019-02-20 06:59 | Emergency (ER) | payer SELFPAY, OTHER | END 2019-02-20 13:31 | disposition left against medical advice (07) | LOC: E/R 06:59 | DX: Z53.21 Procedure and treatment not carried out due to patient leaving prior to being seen by health care provider (principal) | CPT/HCPCS: 99281 ==

== ENCOUNTER 2019-04-05 05:00 | Emergency (ER) | payer OTHER ==
[2019-04-05] MEDS: SOD CHLORIDE 0.9% 1,000 ML IV ×2 (05:55→07:55)
[2019-04-05] MEDS: ONDANSETRON 4 MG INJ IV (05:56)
[2019-04-05] MEDS: HYDROmorphONE 1 MG/ML SYG IV ×2 (05:56→07:55)
[2019-04-05] MEDS ORDERED: DIPHENHYDRAMINE 50 MG INJ (05:59)
[2019-04-05] MEDS: DIPHENHYDRAMINE 50 MG INJ IV ×2 (06:02→08:30)
[2019-04-05 06:14] LABS: ADD MAN DIFF? NO; BASOPHIL # 0.2 10^3/ul (0.0-0.1); BASOPHILS % 1.5 % (0.0-2.0); EOSINOPHILS # 0.5 10^3/ul (0.0-0.5); EOSINOPHILS % 4.5 % (0.0-7.0); HEMATOCRIT 26.3 % (37.0-47.0); HEMOGLOBIN 9.1 g/dl (12.0-16.0); LYMPHOCYTES # 2.8 10^3/ul (0.8-2.9); LYMPHOCYTES % 23.3 % (15.0-51.0); MEAN CORPUSCULAR HEMOGLOBIN 28.3 pg (29.0-33.0); MEAN CORPUSCULAR HGB CONC 34.6 g/dl (32.0-37.0); MEAN CORPUSCULAR VOLUME 81.7 fl (82.0-101.0); MEAN PLATELET VOLUME 9.3 fl (7.4-10.4); MONOCYTE # 1.2 10^3/ul (0.3-0.9); MONOCYTES % 9.9 % (0.0-11.0); NEUTROPHIL # 7.3 10^3/ul (1.6-7.5); NEUTROPHILS % 60.1 % (39.0-77.0); NUCLEATED RED BLOOD CELLS # 0.1 10^3/ul (0.0-0.0); NUCLEATED RED BLOOD CELLS% 0.7 /100WBC (0.0-0.0); PLATELET COUNT 612 10^3/UL (140-415); RED BLOOD COUNT 3.22 10^6/ul (4.20-5.40); RED CELL DISTRIBUTION WIDTH 19.4 % (11.5-14.5); RETICULOCYTE COUNT # 0.101 X10^6 (0.020-0.110); RETICULOCYTE COUNT % 3.1 % (0.5-1.5); RETICULOCYTE RBC 3.22
[2019-04-05 06:14] LABS: WHITE BLOOD COUNT 12.1 10^3/ul (4.8-10.8)
[2019-04-05 06:39] LABS: ALANINE AMINOTRANSFERASE 25 IU/L (13-69); ALBUMIN 4.6 g/dl (3.3-4.9); ALBUMIN/GLOBULIN RATIO 1.15; ALKALINE PHOSPHATASE 94 IU/L (42-121); ANION GAP 12 (5-13); ASPARTATE AMINO TRANSFERASE 44 IU/L (15-46); BILIRUBIN,INDIRECT 2.4 mg/dl (0-1.1); BILIRUBIN,TOTAL 2.4 mg/dl (0.2-1.3); BLOOD UREA NITROGEN 13 mg/dl (7-20); CALCIUM 9.3 mg/dl (8.4-10.2); CARBON DIOXIDE 25 mmol/L (21-31); CHLORIDE 104 mmol/L (97-110); CREATININE 0.41 mg/dl (0.44-1.00); Estimated GFR > 60 mL/min (>60); GLUCOSE 90 mg/dl (70-220); SODIUM 141 mmol/L (135-144); TOTAL PROTEIN 8.6 g/dl (6.1-8.1)
[2019-04-05] MEDS: IBUPROFEN 600 MG TAB PO (07:29)
[2019-04-05] MEDS: OXYCODONE/ACETAMINOPHEN (5/325) TAB PO (10:07)
[2019-04-05] MEDS: HEPARIN (100 UNITS/ML) 5 ML SYG CATHETER (10:34)
== END 2019-04-05 13:19 | disposition home or self-care (01) ==
LOC: E/R 05:00
DX: G89.4 Chronic pain syndrome (principal); F11.24 Opioid dependence with opioid-induced mood disorder; R07.9 Chest pain, unspecified
CPT/HCPCS: 71045; 80053; 85025; 85045; 93971; 96361; 96374; 96375; 96376; 99285-25